=== PATIENT | female | born 1945 | race Two or more races ===

== ENCOUNTER 2025-03-07 21:44 | Inpatient (IN) | payer MEDICAID, OTHER ==
[~2025-03-07] VITALS: Ht 152.4 cm; Wt 70.2 kg
[2025-03-07] MEDS: SODIUM CHLORIDE 0.9% 500 ML IV ONE (22:15)
--- NOTE | 2025-03-07 22:19 | ED.PDOC ---
Altered Mental Status HPI Comments 79-year-old female with past medical history of liver cirrhosis (varices), diabetes, recurrent UTI brought to the hospital by EMS from home due to altered mental status. Per EMS report, patient's family reports that she has fluctuation of mental status but recently been more altered and having ulcerati on and provide false stories. Upon ER arrival, patient was alert, vitals within normal limit but the patient could not provide any history. Chief Complaint: ALOC Time Seen by MD: 21:46 Reviewed Notes: Client Representative Notes Allergies: Coded Allergies: NO KNOWN ALLERGIES (Unverified , 03/07/25) Mode of Arrival: Ambulatory Severity: Severe Timing: Days Duration: Days Past Medical History Past Medical History (Other): Diabetes Liver cirrhosis Surgical History: Denies all surgeries [employer] History: No Pertinent [employer] History Family History Family History: Reviewed,noncontributory to illness, No family hx of Cancer, No family hx of DM, No family hx of Heart patricia, No family hx of HTN, No family hx ofKidney patricia, No family hx of Liver patricia, No family hx of Lung patricia, No family hx of Stroke Social History Alcohol: Denies ETOH Use Drugs: Denies Drug Use Constitutional: reports: malaise; denies: chills, diaphoresis, fatigue, fever, sweats, weakness, others EENTM: denies: blurred vision, double vision, ear bleeding, ear discharge, ear drainage, ear pain, ear ringing, eye pain, eye redness, hearing loss, mouth pain, mouth swelling, nasal discharge, nose bleeding, nose congestion, nose pain, photophobia, tearing, throat pain, throat swelling, voice changes, others Respiratory: reports: shortness of breath; denies: cough, hemoptysis, ortho pnea, SOB at rest, SOB with excertion, stridor, wheezing, others Cardiovascular: denies: chest pain, dizzy spells, diaphoresis, Dyspnea on exertion, edema, irregular heart beat, left arm pain, lightheadedness, palpitations, PND, syncope, others Gastrointestinal: denies: abdomen distended, abdominal pain, blood streaked bowels, constipated, diarrhea, dysphagia, difficulty swallowing, hematemesis, melena, nausea, poor appetite, poor fluid intake, rectal bleeding, rectal pain, vomiting, others Neurological: denies: dizziness, fainting, headache, left sided numbness, left sided weakness, numbness, paresthesia, pre-existing deficit, right sided numbness, right sided weakness, seizure, speech problems, tingling, tremors, weakness, others Musculoskeletal: denies: back pain, gout, joint pain, joint swelling, muscle pain, muscle stiffness, neck pain, others Integumetry: denies: bruises, change in color, change in hair/nails, dryness, laceration, lesions, lumps, rash, wounds, others Allergic/Immunocompromised: denies: Difficulty Healing, Frequent Infections, Hives, Itching, others Hematologic/Lymphatic: denies: anemia, blood clots, easy bleeding, easy bruising, swollen glands, others Endocrine: denies: excessive hunger, excessive sweating, excessive thirst, excessive urination, flushing, intolerance to cold, intolerance to heat, unexplained weight gain, unexplained weight loss, others Psychiatric: denies: anxiety, bipolar disorder, depression, hopeless, panic disorder, schizophrenia, sleepless, suicidal, others Physical Exam General Appearance: Moderate Distress HEENT: Normal ENT Inspection, Pharynx Normal, TMs Normal Neck: Full Range of Motion, Non-Tender, Normal, Normal Inspection Respiratory: Chest Non-Tender, Crackles, Lungs Clear, No Accessory Muscle Use, No Respiratory Distress, Normal Breath Sounds Cardiovascular: No Edema, No JVD, No Murmur, No Gallop, Normal Peripheral Pulses, Regular Rate/Rhythm Breast Exam: Deferred Gastrointestinal: No Organomegaly, Non Tender, No Pulsatile Mass, Normal Bowel Sounds, Soft Genitalia: Deferred Pelvic: Deferred Rectal: Deferred Extremities: No calf tenderness, Normal capillary refill, Normal inspection, Normal range of motion, Non-tender, No pedal edema Neurologic: Alert, screw remover II-XII nml as Tested, No Motor Deficits, Normal Affect, Normal Mood, No Sensory Deficits Cerebellar Function: Normal Reflexes: Normal Skin: Dry, Normal Color, Warm Lymphatic: No Adenopathy EKG EKG : Comments EKGs shows normal sinus rhythm with no significant ST or T-wave changes. Was a procedure done? Was a procedure done?: No Differential Diagnosis (ALOC) Differential Diagnosis: Dehydration, Encephalopathy, Sepsis, CVA, ETOH Intoxication X-Ray, Labs, Meds, VS Vital Signs Date Time Temp Pulse Resp B/P (MAP) Pulse Ox O2 Delivery O2 Flow Rate FiO2 9/5/25 21:58 98.7 70 16 107/47 95 98.7 03/07/25 21:50 72 Lab Test 03/07/25 22:07 Range/Units White Blood Count 7.2 4.4-10.8 10^3/uL Red Blood Count 3.07 L 4.0-5.20 10^6/uL Hemoglobin 11.3 L 12.2-16.2 g/dL Hematocrit 31.5 L 36.0-46.0 % Mean Corpuscular Volume 102.4 H 80.0-100.0 fL Mean Corpuscular Hemoglobin 36.8 H 28.0-32.0 pg Mean Corpuscular Hemoglobin Concent 36.0 32.0-36.0 g/dL Red Cell Distribution Width 14.1 11.8-14.3 % Platelet Count 64 L 140-450 10^3/uL Mean Platelet Volume 10.1 6.9-10.8 fL Neutrophils (%) (Auto) 87.8 H 37.0-80.0 % Lymphocytes (%) (Auto) 6.9 L 10.0-50.0 % Monocytes (%) (Auto) 2.5 0.0-12.0 % Eosinophils (%) (Auto) 2.5 0.0-7.0 % Basophils (%) (Auto) 0.3 0.0-2.0 % Neutrophils # (Auto) 6.3 1.6-8.6 10 ^3/uL Lymphocytes # (Auto) 0.5 0.4-5.4 10 ^3/uL Monocytes # (Auto) 0.2 0-1.3 10 ^3/uL Eosinophils # (Auto) 0.2 0-0.8 10 ^3/uL Basophils # (Auto) 0 0-0.2 10 ^3/uL Nucleated Red Blood Cells 0.0 % Sodium Level 129 L 136-145 mmol/L Potassium Level 5.2 H 3.5-5.1 mmol/L Chloride Level 103 98-107 mmol/L Carbon Dioxide Level 16 L 20-31 mmol/L Anion Gap 10 5-15 Blood Urea Nitrogen 66 H 9-23 mg/dL Creatinine 2.09 H 0.550-1.02 mg/dL Glomerular Filtration Rate Calc 24 >90 mL/min BUN/Creatinine Ratio 31.6 H 10.0-20.0 Serum Glucose 250 H 74-106 mg/dL Lactic Acid Level 1.4 0.4-2.0 mmol/L Calcium Level 8.8 8.7-10.4 mg/dL Total Bilirubin 1.2 H 0.2-1.0 mg/dL Aspartate Amino Transferase (AST) 48 H 13-40 U/L Alanine Aminotransferase (ALT) 36 7-40 U/L Alkaline Phosphatase 240 H 46-116 U/L Ammonia 34 H 11-32 umol/L Total Protein 6.6 5.7-8.2 g/dL Albumin 3.1 L 3.2-4.8 g/dL Plasma/Serum Blood Alcohol < 3.0 <10 mg/dL Time of 1ST Reevaluation: 22:30 Reevaluation 1ST: Unchanged Patient Education/Counseling: Diagnosis, Treatment, Pt Unresponsive Family Education/Counseling: No Family Present Comments Patient was brought to the hospital by EMS due to altered mental status and generalized weakness. Patient blood pressure was on lower side. CBC and CMP ordered Chest x-ray shows bilateral infiltration possible pneumonia Patient was given IV fluid, IV antibiotic, thiamine and folic acid On subsequent checkup, patient was still confused and could not provide history Patient will be admitted at hospital for further management and workup. SEPSIS Sepsis Screen Date sepsis recognized/suspect: Mar 07, 2025 Time Sepsis recognized/suspect: 2143 Recent Procedure: No On Antibiotic Therapy: No Respiratory Rate >20: No Heart Rate >90: No Temp<36 C (96.8 F) or >38.3 C: No SBP <90 or MAP <65 mmHG: No New Acute Mental Status Change: No Is the patient on CPAP, BIPAP,: No Physician Orders Electrocardigram (03/07/25 21:53) Abdomen Limited (03/07/25 21:46) Urinalysis (03/07/25 21:46) Blood Culture (03/07/25 21:46) Chest Xray 1 View (03/07/25 21:46) Drug Screen (03/07/25 21:46) Head Without Contrast (03/07/25 22:05) Sodium Chloride 0.9% (03/07/25 22:15) Hernandez Catheters (03/07/25 ) Vital Signs Date Time Temp Pulse Resp B/P (MAP) Pulse Ox O2 Delivery O2 Flow Rate FiO2 03/07/25 21:58 98.7 70 16 107/47 95 98.7 03/07/25 21:50 72 Laboratory Tests Test 03/07/25 22:07 Lactic Acid Level 1.4 mmol/L (0.4-2.0) White Blood Count 7.2 10^3/uL (4.4-10.8) Departure 1 Departure Time of Disposition: 23:07 Impression: Primary Impression: Metabolic encephalopathy Additional Impression: Pneumonia Disposition: ADMITTED INPATIENT Admit to: Med Surg Condition: Serious Critical Care Note Critical Care Time?: No Stability Stability form required: No Heart Score Heart Score: Heart Score Response (Comments) Value History N/A 0 EKG Normal 0 Age >65 2 Risk Factors 1 or 2 risk factors 1 Troponin N/A 0 Total 3 NEDA VELASQUEZ Mar 07, 2025 22:19
[2025-03-07 22:29] LABS: Hematocrit 31.5 % (36.0-46.0); Hemoglobin 11.3 g/dL (12.2-16.2); Mean Corpuscular Hemoglobin 36.8 pg (28.0-32.0); Mean Corpuscular Volume 102.4 fL (80.0-100.0); Nucleated Red Blood Cells % 0.0 %
[2025-03-07] MEDS: FOLIC ACID 1 MG in D5W 5% 50 ML INJ ONE (22:30)
[2025-03-07] MEDS: THIAMINE 100mg/ml INJ (200mg/2ml VIAL) IV ONE (22:30)
[2025-03-07 22:49] LABS: Alanine Aminotransferase 36 U/L (7-40); Anion Gap 10 (5-15); BUN/Creatinine Ratio 31.6 (10.0-20.0); Calcium 8.8 mg/dL (8.7-10.4); Chloride 103 mmol/L (98-107); Total Protein 6.6 g/dL (5.7-8.2)
[2025-03-07 22:53] LABS: Albumin 3.1 g/dL (3.2-4.8); Alkaline Phosphatase 240 U/L (46-116); Bilirubin, Total 1.2 mg/dL (0.2-1.0); Blood Urea Nitrogen 66 mg/dL (9-23); Carbon Dioxide 16 mmol/L (20-31); Glucose 250 mg/dL (74-106); Potassium 5.2 mmol/L (3.5-5.1); Sodium 129 mmol/L (136-145)
[2025-03-07] MEDS: AZITHROMYCIN 500MG/ 250ML 250 ML IV ONE (23:15)
--- NOTE | 2025-03-07 23:28 | DVH ---
EXAM: CT HEAD WITHOUT CONTRAST INDICATION: aloc TECHNIQUE: CT of the head without intravenous contrast. Radiation Dose : 1. Head: CT Dose: CTDI volume is 53.95 mGy. Dose-length product is 1.71 mGy*cm The dose indicators for CT are the volume Computed Tomography (CT) Dose Index (CTDIvol) and the Dose Length Product (DLP), and are measured in units of mGy and mGy-cm, respectively. These indicators are not patient dose, but values generated from the CT scanner acquisition factors. The report includes radiation exposure data for exposures received during this examination. COMPARISON: CT HEAD WITHOUT CONTRAST on DOS: 02/28/25, CT HEAD WITHOUT CONTRAST on DOS: 01/14/25, US CA ROTID DUPLX W COLOR DOP on DOS: 07/24/24 FINDINGS: There is no evidence of acute intracranial hemorrhage, extra-axial collection, mass effect, midline s hift, herniation or hydrocephalus. 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 Focal calcification in the right precentral gyrus ( series 2, image 48 ) and l eft temporal lobe (series 2, image 22). Intracranial atherosclerosis. The ventricles, sulci and cisterns are age appropriate. The oneal-white differentiation is intact. The visualized paranasal sinuses are clear. Prior right canal wall down mastoidectomy. The surrounding soft tissues and osseous structures are unremarkable. IMPRESSION: 1. No acute intracranial abnormality. Radiation optimization: All CT scans at this facility use at least one of these dose optimization rosemary hniques: automated exposure control mA and/or kV adjustment per patient size (includes targeted exam s where dose is matched to clinical indication) or iterative reconstruction.
--- NOTE | 2025-03-07 23:32 | DVH ---
CHEST RADIOGRAPH Indication: Pneumonia Technique: Single frontal view of the chest was obtained COMPARISON: XY CHEST PORTABLE on DOS: 02/28/25, XY CHEST PORTABLE on DOS: 01/14/25, XY CHEST XRAY 1 VIE W on DOS: 09/27/24 FINDINGS: Lines and Tubes: None Lungs: Diffuse lung disease with patchy alveolar and interstitial opacities in both lungs, predominan tly in the left mid lung and left lower lobe, suggestive of atypical or viral pneumonia. Pleura: No effusion. No pneumothorax. Cardiomediastinal contours: Enlarged cardiac silhouette. Bones: Unremarkable IMPRESSION: 1. Diffuse lung disease with patchy alveolar and interstitial opacities in both lungs, predominantly in the left mid lung and left lower lobe, suggestive of atypical or viral pneumonia.
--- NOTE | 2025-03-08 00:28 | DVH ---
INDICATION: Liver cirrhosis, asictis TECHNIQUE: Multiple real-time sonographic images were obtained of the right upper quadrant. COMPARISON: US LIVER on DOS: 09/28/24 FINDINGS: The liver demonstrates coarsened diffusely increased echotexture without focal mass lesions . The liver measures 10.9 cm. Normal hepatopetal portal flow identified. No evidence of pleural effu gerardo or abdominal ascites. There is no intrahepatic or extrahepatic ductal dilatation. The common duct measures 0.4 cm. Gallstones within the gallbladder. The gallbladder wall measures 0.2 cm and is within normal limits. Negative sonographic davey's sign. The right kidney measures 7.5 cm. The right kidney is normal in contour, size, and shape. The echogen icity is normal. There is no hydronephrosis. The pancreas is not well visualized due to overlying bowel gas. IMPRESSION: 1. Coarsened hepatic echotexture. 2. No evidence of ascites. 3. Cholelithiasis without sonographic evidence of acute cholecystitis.
[2025-03-08 02:28] VITALS: PULSE 68; RESP 20; O2SAT 97
[2025-03-08] MEDS ORDERED: DEXTROSE (50%) 50ML SYRG IV PRN (03:15)
[2025-03-08 03:21] LABS: Urine Budding Yeast OCCASIONAL /hpf (None Seen); Urine Protein, UAD Negative (Negative)
[2025-03-08] MEDS ORDERED: NITROGLYCERIN 0.4 MG SL TAB SL PRN (03:30)
[2025-03-08] MEDS ORDERED: FOLIC ACID 1 MG in D5W 5% 50 ML INJ ONE (03:30)
[2025-03-08] MEDS ORDERED: DOCUSATE SOD 100 MG CAP PO PRN (03:30)
[2025-03-08] MEDS ORDERED: MORPHINE SULFATE INJ 2 MG/ml SYRG IV PRN (03:30)
[2025-03-08 03:59] LABS: Amphetamine Screen, Urine Neg (NEGATIVE); Barbiturate Scree,Urine Neg (NEGATIVE); Benzodiazephine Screen, Urine Neg (NEGATIVE); Cannabinoid Screen, Urine Neg (NEGATIVE); Cocaine Screen, Urine Neg (NEGATIVE); Opiate Scree,Urine Neg (NEGATIVE); Phencyclidine Screen, Urine Neg (NEGATIVE)
[2025-03-08 04:42] LABS: Hematocrit 31.1 % (36.0-46.0); Hemoglobin 11.1 g/dL (12.2-16.2); Mean Corpuscular Hemoglobin 37.2 pg (28.0-32.0); Mean Corpuscular Volume 104.0 fL (80.0-100.0); Nucleated Red Blood Cells % 0.0 %
[2025-03-08 04:54] LABS: Alanine Aminotransferase 36 U/L (7-40); Anion Gap 11 (5-15); BUN/Creatinine Ratio 33.7 (10.0-20.0); Calcium 8.8 mg/dL (8.7-10.4); Chloride 103 mmol/L (98-107); Total Protein 6.2 g/dL (5.7-8.2)
[2025-03-08 04:55] LABS: Bilirubin, Total 0.9 mg/dL (0.2-1.0)
[2025-03-08 05:06] LABS: Albumin 3.0 g/dL (3.2-4.8); Alkaline Phosphatase 246 U/L (46-116); Blood Urea Nitrogen 57 mg/dL (9-23); Carbon Dioxide 15 mmol/L (20-31); Glucose 247 mg/dL (74-106); Potassium 5.2 mmol/L (3.5-5.1); Sodium 129 mmol/L (136-145)
[2025-03-08] MEDS: LACTATED RINGER'S 500 ML IV ONE (05:25)
[2025-03-08] MEDS: METHOTREXATE 2.5 MG TAB PO SCH (05:40)
[2025-03-08] MEDS: PANTOPRAZOLE 40 MG/10 ML VIAL INJ IV SCH (05:45)
[2025-03-08] MEDS: LACTATED RINGER'S 1,000 ML IV ONE (05:45)
[2025-03-08] MEDS: ALBUMIN 25% 100 ML IV ONE (06:22)
[2025-03-08 06:26] LABS: COVID19 ANTIGEN SOFIA FIA NEGATIVE (NEGATIVE)
[2025-03-08] MEDS ORDERED: VANCOMYCIN PER PHARMACY 0 MG IV SCH (06:30)
[2025-03-08] MEDS: ACCU-CHEK COMFORT CURVE STRIP VI SCH (06:59)
--- NOTE | 2025-03-08 06:59 | DVHHPRES ---
History of Present Illness Resident Creating Document: KIKO YIN RESIDENT History of Present Illness Claudette Guzmán is an 79-year-old woman with a complex medical history that includes type 2 diabetes mellitus, thyroid disease, liver cirrhosis with varices, gastritis, lung fibrosis, high blood pressure, rheumatoid arthritis, and heart failure with reduced ejection fraction. She was living independently and managing her own care at home until recently. About two weeks ago, she was hospitalized for hyperammonemia, likely related to her liver disease. Since being discharged, her family noticed that her mental status had been fluctuatingshe was sometimes lucid but increasingly confused. Over the past few days, her condition worsened. Just one day before arriving at the ER, she began saying random things, became visibly confused, and started having visual hallucinations. Her movements also became noticeably slower. Concerned, her family called EMS, and she was brought to the emergency department. On arrival, she was alert but unable to give a clear history. Her vital signs were stable, and she denied having any fever, chills, nausea, vomiting, diarrhea, chest pain, or shortness of breath. Patient is altered and collateral history taken from granddaughter over phone. Past Medical History: type 2 diabetes mellitus, thyroid disease, liver cirrhosis with varices, gastritis, lung fibrosis, high blood pressure, rheumatoid arthritis, and heart failure with reduced ejection fraction. Surgical History: Denies all surgeries PIN PULLER History: No Pertinent PIN PULLER History Family History: Reviewed,noncontributory to illness, No family hx of Cancer, No family hx of DM, No family hx of Heart patricia, No family hx of HTN, No family hx ofKidney patricia, No family hx of Liver patricia, No family hx of Lung patricia, No family hx of Stroke Social History: The patient/ family denies alcohol use and denies any illicit drug use. Home Medications: Xifaxan 550 mg tab, Furosemide 40 mg tab, Potassium Cl ER 10 mEq tablet, Cephalexin 500 mg cap, Azithromycin 250 mg tab, COORDX Tyfast COVID- 19 Ag Test, Propranolol Hydrochloride 10 mg tab, Enulose 10 gm/15 mL john, Verquvo 2.5 mg tab, Tradjenta 5 mg tablets, Folic Acid 1 mg tab, Methotrexate 2.5 mg tablet, Naproxen DR 375 mg tab, Potassium Cl 10 mEq ER tablets, Tramadol HCl 50 mg tab, Pregabalin 150 mg cap, Nitrofurantoin Monohydrate 100 mg cap, Clonidine HCl 0.1 mg/24 hr patch, Ciprofloxacin HCl 500 mg tab, Pantoprazole Sodium 40 mg tab, Timolol Maleate 0.5% john, Spironolactone 50 mg tab, Albuterol Sulfate HFA 108 mcg/act inhaler, Timolol Maleate 0.5% eye drops, Diclofenac Sodium 1% gel, Lidocaine 5% patch, Pregabalin 75 mg cap. PCP/Sleeve Setter: Dr. Weaver Review of Systems Review of Systems CONSTITUTIONAL: Fever, night sweats, weight loss, Lymphadenopathy, ecchymoses, fatigue: Negative DERMATOLOGIC: Rash, New/growing/changing skin lesions: Negative HEENT: Vision change, eye pain, Rhinorrhea, sinus pain, epistaxis, dysphagia, odynophagia, globus sensation, Change in hearing, tinnitus, vertigo, otalgia, Dental problems, oral ulcers or lesions: : Negative ENDOCRINE: Weight change, heat or cold intolerance, tremor, insomnia, neck pain or swelling, Polyuria, polydipsia, polyphagia, Abnormal hair growth, change in nails: Negative CARDIOVASCULAR: Chest pain, palpitations, syncope, Edema, cyanosis, claudication, Orthopnea, paroxysmal nocturnal dyspnea: Negative PULMONARY: Shortness of breath, dyspnea with exertion, Cough, hemoptysis, wheezing, chest pain : Negative GI: Nausea, vomiting, diarrhea, melena, hematochezia, Change in appetite, abdominal pain, change in bowel habits or stools: Negative : Dysuria, frequency, urgency, Urinary incontinence, hematuria, foamy urine, nocturia, Change in libido, erectile dysfunction, Change in menses, dysmenorrhea, dyspaerunia, pelvic pain: : Negative MUSCULOSKELETAL: Joint swelling or pain, muscle pain, back pain: : Negative NEUROLOGIC: Headache, scotoma, Change in smell or taste, change in facial muscles, Muscle weakness, paresthesias, anesthesia, Ataxia, change in speech: Negative PSYCHIATRIC: Depression, anxiety, hallucinations, talon, suicidal/homicidal thoughts, Binging, purging: Negative Patient is not alert or oriented to perform a Review of the Systems Allergies: Coded Allergies: NO KNOWN ALLERGIES (Unverified , 03/07/25) Medications Current Medications Medications Dose Ordered Sig/Vickie Route Start Time Stop Time Status Last Admin Dose Admin Diagnostic Test (Pha) 1 strip Q6HR 03/08/25 06:00 Insulin Human Regular Q6HR SC 03/08/25 06:00 Dextrose 50 ml UD PRN IV 03/08/25 03:15 Docusate Sodium 100 mg BIDPRN PRN PO 03/08/25 03:30 Nitroglycerin 0.4 mg Q5MINP PRN SL 03/08/25 03:30 Morphine Sulfate 2 mg Q30M PRN IV 03/08/25 03:30 Exam Vital Signs Vital Signs Date Time Temp Pulse Resp B/P (MAP) Pulse Ox O2 Delivery O2 Flow Rate FiO2 03/08/25 02:28 98.1 70 20 95/45 (62) 97 98.1 03/08/25 02:28 Room Air* 0 21 Exam General Appearance: Alert, Oriented X3, Cooperative, No acute distress HEENT: Atraumatic, PERRLA, EOMI, Mucous membrane moist/pink Respiratory: Crackles present Cardiovascular: Regular rate, Normal S1, Normal S2, No murmurs, no chest wall tenderness Abdominal: Normal bowel sounds, Soft, No tenderness, No hepatospenomegaly, No masses Extremities: No clubbing, No cyanosis, No edema, Normal pulses, No tenderness/swelling Skin: No rashes, No breakdown, No significant lesion Neuro: Normal gait, Normal speech, Strength at 5/5 X4 ext, Normal tone, Sensation intact, Cranial nerves 3-12 NL, Reflexes 2+ Psych/Mental Status: Mental status NL, Mood NL Labs/Xrays Labs Test 03/07/25 23:59 03/07/25 22:07 Range/Units Urine Color Light-yellow Yellow Urine Clarity Clear Clear Urine pH 5.5 5.0-9.0 Urine Specific Scott 1.010 1.001-1.035 Urine Protein Negative Negative Urine Ketones Negative Negative Urine Blood Negative Negative /uL Urine Nitrite Negative Negative Urine Bilirubin Negative Negative Urine Urobilinogen Normal Negative mg/dL Urine Leukocyte Esterase 2+ Negative /uL Urine RBC 1 0 - 4 /hpf Urine Microscopic WBC 5 0-5 /HPF Urine Squamous Epithelial Cells Few <5 /hpf Urine Bacteria None seen None Seen /hpf Urine Yeast (Budding) Occasional None Seen /hpf Urine Glucose Normal Normal mg/dL White Blood Count 7.2 4.4-10.8 10^3/uL Red Blood Count 3.07 L 4.0-5.20 10^6/uL Hemoglobin 11.3 L 12.2-16.2 g/dL Hematocrit 31.5 L 36.0-46.0 % Mean Corpuscular Volume 102.4 H 80.0-100.0 fL Mean Corpuscular Hemoglobin 36.8 H 28.0-32.0 pg Mean Corpuscular Hemoglobin Concent 36.0 32.0-36.0 g/dL Red Cell Distribution Width 14.1 11.8-14.3 % Platelet Count 64 L 140-450 10^3/uL Mean Platelet Volume 10.1 6.9-10.8 fL Neutrophils (%) (Auto) 87.8 H 37.0-80.0 % Lymphocytes (%) (Auto) 6.9 L 10.0-50.0 % Monocytes (%) (Auto) 2.5 0.0-12.0 % Eosinophils (%) (Auto) 2.5 0.0-7.0 % Basophils (%) (Auto) 0.3 0.0-2.0 % Neutrophils # (Auto) 6.3 1.6-8.6 10 ^3/uL Lymphocytes # (Auto) 0.5 0.4-5.4 10 ^3/uL Monocytes # (Auto) 0.2 0-1.3 10 ^3/uL Eosinophils # (Auto) 0.2 0-0.8 10 ^3/uL Basophils # (Auto) 0 0-0.2 10 ^3/uL Nucleated Red Blood Cells 0.0 % Sodium Level 129 L 136-145 mmol/L Potassium Level 5.2 H 3.5-5.1 mmol/L Chloride Level 103 98-107 mmol/L Carbon Dioxide Level 16 L 20-31 mmol/L Anion Gap 10 5-15 Blood Urea Nitrogen 66 H 9-23 mg/dL Creatinine 2.09 H 0.550-1.02 mg/dL Glomerular Filtration Rate Calc 24 >90 mL/min BUN/Creatinine Ratio 31.6 H 10.0-20.0 Serum Glucose 250 H 74-106 mg/dL Lactic Acid Level 1.4 0.4-2.0 mmol/L Calcium Level 8.8 8.7-10.4 mg/dL Total Bilirubin 1.2 H 0.2-1.0 mg/dL Aspartate Amino Transferase (AST) 48 H 13-40 U/L Alanine Aminotransferase (ALT) 36 7-40 U/L Alkaline Phosphatase 240 H 46-116 U/L Ammonia 34 H 11-32 umol/L Total Protein 6.6 5.7-8.2 g/dL Albumin 3.1 L 3.2-4.8 g/dL Plasma/Serum Blood Alcohol < 3.0 <10 mg/dL SEPSIS Sepsis Screen Date sepsis recognized/suspect: Mar 08, 2025 Time Sepsis recognized/suspect: 229 Recent Procedure: No On Antibiotic Therapy: No Respiratory Rate >20: No Heart Rate >90: No Temp<36 C (96.8 F) or >38.3 C: No SBP <90 or MAP <65 mmHG: No New Acute Mental Status Change: No Is the patient on CPAP, BIPAP,: No Physician Orders Electrocardigram (03/07/25 21:53) Abdomen Limited (03/07/25 21:46) Blood Culture (03/07/25 21:46) Chest Xray 1 View (03/07/25 21:46) Drug Screen (03/07/25 21:46) Head Without Contrast (03/07/25 22:05) Hernandez Catheters (03/07/25 ) Glucose Blood (Accu-Chek Comfort Curve T (03/08/25 06:00) Dextrose 50% Syringe (03/08/25 03:15) Npo (Nothing By Mouth) Diet (03/08/25 Breakfast) Insulin R (Human) (Insulin R) (03/08/25 06:00) Admit (03/08/25 03:26) Allergies (03/08/25 03:26) Code Status (03/08/25 03:26) Docusate Sodium Capsule (Colace Capsule) (03/08/25 03:30) Complete Blood Count (03/08/25 04:00) Comprehensive Metabolic Panel (03/08/25 04:00) Condition: Serious (03/08/25 03:26) Nitroglycerin Sublingual (Ntrostat Subli (03/08/25 03:30) Morphine Sulfate Injection (03/08/25 03:30) Stat Ekg For Chest Pain (03/08/25 03:26) Respiratory Culture W/ Gs (03/08/25 03:33) Blood Culture (03/08/25 03:33) Folic Acid (03/08/25 08:00) Vital Signs Date Time Temp Pulse Resp B/P (MAP) Pulse Ox O2 Delivery O2 Flow Rate FiO2 03/08/25 02:28 98.1 70 20 95/45 (62) 97 98.1 03/08/25 02:28 68 20 97 Room Air* 0 21 03/07/25 21:58 98.7 70 16 107/47 95 98.7 03/07/25 21:50 72 Laboratory Tests Test 03/07/25 22:07 Lactic Acid Level 1.4 mmol/L (0.4-2.0) White Blood Count 7.2 10^3/uL (4.4-10.8) Medications Medications Dose Ordered Sig/Vickie Route Start Time Stop Time Status Last Admin Dose Admin Azithromycin 250 ml @ 125 mls/hr ONCE ONCE IV 03/07/25 23:15 03/08/25 01:14 DC 03/07/25 23:15 125 MLS/HR Ceftriaxone Sodium 50 ml @ 100 mls/hr ONCE ONCE IV 03/07/25 22:15 03/07/25 22:44 DC 03/07/25 22:15 100 MLS/HR Sodium Chloride 500 ml @ 500 mls/hr Q1H ONCE IV 03/07/25 22:15 03/07/25 23:14 DC 03/07/25 22:15 500 MLS/HR Thiamine HCl 100 mg ONCE ONCE IV 03/07/25 22:30 03/07/25 22:31 DC 03/07/25 22:30 100 MG Assessment/Plan Assessment/Plan #Likely HFREF: Limited history, due to language barrier, no available prior medical records, noted VERQUVO, TRADJENTA, SPIRONOLACTONE 50, limited room for GDMT seems like end-stage heart failure, NYHA class 4, repeat echo telemetry, discussed closely with family, Dr. Weaver for goals of care if poor life expectancy. Consulted Dr. Weaver. #Possible community acquired Pneumonia: Gram-positive/ Gram-negative, ruled out viral disease: Influenza COVID -v e Target SpO2 more than 94%. Toxicology negative. MRSA to check, broad antibiotics with sputum culture and blood culture pending. #anemia with Macrocytosis: folate and b12 check follow up CBC rule, TSH , close follow up, Could be due to secondary to methotrexate, transfusion threshold 7. Hold methotrexate #hyponatremia, hypovolemic, likely chronic: Close follow up, 129. urine , close follow up avoid rapid correction of more than 8 mEq per 24 hours. #Hyperkalemia, moderate, persistent: Hyperkalemia protocol to continue, hold spironolactone. Check for magnesium, keep magnesium above 2, telemetry to continue Hyperkalemia protocol to continue. #JOE due to VMN: Likely hepatorenal pathology. Workup in progress, check for prerenal, renal, post sternal causes. #likely underlying CKD #Intravascular dehydration, likely due to 3rd spacing: likely prerenal. BUN is to creatinine ratio 31.6. Severe intravascular fluid depletion: Hold Lasix, intravascularly dry, careful fluid depletion. With albumin #High concern for GI bleed: PPI bid, BUN high , stool occult blood. transfusion threshold 7 if no active bleeding noted. #Mild transaminitis: check for PT INR, comprehensive hepatic panel to check. Hepatic cirrhosis versus cryptogenic cirrhosis. Discussion with family do not reveal any potential cause so far. #Hyperammonemia: lactulose, oral continue. Continue oral rifaximin. #Cirrhotic liver disease: Decompensated, noted evident cirrhosis, possible cardiac cirrhosis, workup in progress, BNP elevated 1800, low room for GDM T, due to low blood pressure hemodynamic instability, echo, keep the patient on telemetry, correct electrolytes. previously was seen by GI, CT abdomen pelvis pending, check for lipase. #moderate to severe protein energy malnutrition: continue IV albumin to stop from 3rd spacing. Went tolerate patient needs to be switched on oral high- protein diet. #acute complicated UTI: Likely Gram-negative, blood culture, urine culture to continue. Patient came from home, low possibility of ESBL. #Acute encephalopathy likely due to Toxic versus metabolic causes: CT head negative, no focal neurological deficits. Could be multifactorial hyperammonemia, hyperuricemia, sepsis, hypoxia, multisystem disease, delirium precaution, high-risk of aspiration, NPO, fall precautions. #Pulmonary edema, with possible trace bilateral pleural effusion: close follow up, primary disease control, ruled out infection inflammation. Close follow up no need of aspiration at this point. #Abdominal distention concerning for SBP/decompensated liver cirrhosis: Limited examination, no acute tenderness, check with CT abdomen with pelvis without contrast at this point: INR, PT PTT. To check for possible paracentesis. #Cholelithiasis without sonographic evidence of acute cholecystitis : Close monitoring of LFT daily basis, Avoid hepatotoxic, poor prognosis, multisystem disease, GI consult. #Known COPD: continue nebs, no active wheezing noted. On room air, try to keep SpO2 above 92%. #Neuropathic pain: Home medications On pregabalin 75, lidocaine 5% previously, denies any low back pain as needed medications. #Glaucoma: On timolol maleate eyedrops, no visual disturbance or redness noted on examination for now. #known varices: Look for variceal GI with, avoid aspirin, NSAIDs, anticoagulants. #History of recurrent UTI presented with acute complicated cystitis: Upgrade to meropenem urine culture, blood culture to continue. #advanced age with multiorgan failure secondary due to sepsis and septic shock vs cardiogenic shock: On telemetry continue, patient's family updated and understands the poor outcome arranging to come at bedside in-hospital, repeat lactic acidosis, telemetry close monitoring, if hypotension and hemodynamic instability continues consider upgrade to ICU status. For now patient remains full code. # Diet: NPO, high aspiration risk # DVT prophylaxis: SCDs only high-risk of bleeding # GI Prophylaxis: IV PPI b.i.d. PCP: Dr. Weaver Sleeve Setter: Dr. Weaver Barriers to discharge: Extremely poor prognosis, multiorgan failure, advanced age, active treatment and management ongoing. Might need close monitoring/upgraded treatment and ICU level. Likely need goals of care discussion soon. Case discussed with Dr. Krueger. Code status: Full code. Complex patient care discussion needed total 37 minutes. Plan discussed with: Patient, Other (Granddaughter ) My Orders Orders - KIKO YIN RESIDENT Procedure Category Date Status Time Admit ADMIT 03/08/25 Transmitted 03:26 Allergies RUDY 03/08/25 In Process 03:26 Code Status CODE 03/08/25 Transmitted 03:26 Docusate Sodium PHA 03/08/25 In Process Capsule (Colace 03:30 Complete Blood Count LAB 03/08/25 Logged 04:00 Comprehensive LAB 03/08/25 Logged Metabolic Panel 04:00 Condition: Serious RUDY 03/08/25 In Process 03:26 Nitroglycerin PHA 03/08/25 In Process Sublingual (Ntrostat 03:30 Morphine Sulfate PHA 03/08/25 In Process Injection 03:30 Stat Ekg For Chest RUDY 03/08/25 In Process Pain 03:26 Respiratory Culture CHRISTIANO 03/08/25 Logged W/ Gs 03:33 Blood Culture CHRISTIANO 03/08/25 Logged 03:33 Date of Service: Mar 08, 2025 Billing Provider: YONG KRUEGER MD Common Visit Codes: [id number] INP/OBS CARE (HIGH) Secondary Visit Codes: [id number] CARE PLAN 30 MINUTES KIKO YIN RESIDENT Mar 08, 2025 03:42 OTIS SHIRLEY RESIDENT Mar 08, 2025 06:59
[2025-03-08] MEDS: InsuLIN REG 1unit/0.01ml Soln (100units/ml) SC SCH (07:01)
[2025-03-08 07:24] LABS: INR 1.11 (0.9-1.15); Prothrombin Time 11.6 sec (9.3-11.8)
[2025-03-08 07:30] VITALS: PULSE 105; RESP 20; O2SAT 95
[2025-03-08] MEDS ORDERED: PANTOPRAZOLE 40 MG/10 ML VIAL INJ IV SCH (07:30)
[2025-03-08] MEDS: NOREPINEPHRINE 8 MG/250ML KIT 250 ML IV SCH (08:22)
--- NOTE | 2025-03-08 08:25 | DVH ---
US KIDNEY HISTORY: rule out postrenal obstruction COMPARISON: US ABDOMEN LIMITED on DOS: 03/07/25, US LIVER on DOS: 09/28/24 TECHNIQUE: Transverse and longitudinal grayscale and color doppler images were obtained of the kidney s and bladder. FINDINGS: Right kidney: Size: 9.9 cm Cortical thickness: Normal Echogenicity: Normal Stones: None Masses: None Hydronephrosis: None Ureters: Not well visualized. Other: None Left kidney: Size: 10.8 cm Cortical thickness: Normal Echogenicity: Normal Stones: None Masses: None Hydronephrosis: None Ureters: Not well visualized. Other: None Bladder: Hernandez Other: None. IMPRESSION: Unremarkable renal ultrasound.
[2025-03-08] MEDS: NOREPINEPHRINE 8 MG/250ML KIT 250 ML IV ONE (08:30)
[2025-03-08 09:03] LABS: Base Excess -7.1 mmol/L (-2.0-3.0)
[2025-03-08] MEDS: SODIUM BICARB 8.4% 50Meq/50ml SYR INJ IV ONE (09:36)
[2025-03-08] MEDS: LACTULOSE 20Gm/30ML SOLN PO ONE (09:36)
[2025-03-08] MEDS: metroNIDAZOLE 500 MG TAB PO ONE (09:36)
[2025-03-08] MEDS ORDERED: FUROSEMIDE 20 MG TAB PO SCH (10:00)
[2025-03-08] MEDS ORDERED: SPIRONOLACTONE 25 MG TAB PO SCH (10:00)
[2025-03-08] MEDS: CALCIUM GLUC 1,000mg/50ml-NS 50 ML IV ONE (11:04)
[2025-03-08] MEDS: MEROPENEM 500MG IVPB 50 ML IV ONE (11:36)
[2025-03-08] MEDS: DEXTROSE (50%) 50ML SYRG IV ONE (11:40)
[2025-03-08] MEDS: InsuLIN REG 1unit/0.01ml Soln (100units/ml) IV ONE (11:41)
[2025-03-08] MEDS: SODIUM ZIRCONIUM CYCL 10 GM PAK PO ONE (11:41)
[2025-03-08] MEDS: FOLIC ACID 1 MG in D5W 5% 50 ML INJ ONE ×2 (11:42→14:21)
[2025-03-08] MEDS: VANCOMYCIN 1GM/250ML KIT 250 ML IV ONE (12:33)
[2025-03-08] MEDS: PREGABALIN 25 MG CAP PO SCH (12:47)
[2025-03-08] MEDS: FOLIC ACID 1 MG TAB PO SCH (12:47)
[2025-03-08] MEDS: metroNIDAZOLE 500 MG TAB PO SCH (14:00)
[2025-03-08] MEDS: SODIUM ZIRCONIUM CYCL 10 GM PAK PO SCH (14:00)
[2025-03-08 16:49] LABS: Protein, Urine 19.6 mg/dL (1-14)
[2025-03-08 17:55] LABS: Urine Protein, UAD Negative (Negative)
--- NOTE | 2025-03-08 19:07 | DVHPNRES ---
Progress Note Date Seen: Mar 08, 2025 Resident Creating Document: BERNARDO GOODE RESIDENT Medical Necessity Reason Pt with a Central, PICC or Fol: No Subjective Review of Systems Claudette Guzmán is an 79-year-old woman who presents to the ED via EMS with chief complaint of altered level of consciousness, low grade fever, fatigue and generalized weakness, associated with suprapubic pain. Due to clinical status could not obtain review of systems, obtained past medical history from family who is at bedside. Per daughter she was recently hospitalized due to hyperammonemia in the setting of liver cirrhosis (etiology probably medication) in recently discharged eight days ago. Past Medical History: Hypertension, type 2 diabetes mellitus, HFrEF, liver cirrhosis (etiology probably secondary to medication) with esophageal varices and multiple admissions due to hyperammonemia, gastritis, lung fibrosis, rheumatoid arthritis. Surgical History: EGD with diagnosis of esophageal varices, nose and ear surgery, cataract surgery Family History: Sister had breast cancer Social History: Lives in [place] with daughter (she is the caregiver). Denies current tobacco, alcohol and other drug abuse Home Medications: Xifaxan 550 mg tab, Furosemide 40 mg tab, Potassium Cl ER 10 mEq tablet, Propranolol Hydrochloride 10 mg tab, Enulose 10 gm/15 mL john, Verquvo 2.5 mg tab, Tradjenta 5 mg tablets, Folic Acid 1 mg tab, Methotrexate 2.5 mg tablet, Naproxen DR 375 mg tab, Tramadol HCl 50 mg tab, Pregabalin 150 mg cap, Clonidine HCl 0.1 mg/24 hr patch, Pantoprazole Sodium 40 mg tab, Spironolactone 50 mg tab, Albuterol Sulfate HFA 108 mcg/act inhaler, Timolol Maleate 0.5% eye drops, Diclofenac Sodium 1% gel, Lidocaine 5% patch. PCP: Dr Siddiqi Patent Counsel: Dr. Weaver Loom Doffer: Dr Thomson Patient seen and examined at bedside. Patient is still only oriented in person (not in time and place) presents mild abdominal pain especially on palpation. No other symptom. Objective vital signs Vital Sign Date Time Temp Pulse Resp B/P (MAP) Pulse Ox O2 Delivery O2 Flow Rate FiO2 03/08/25 08:30 76 18 80/26 (44) 95 03/08/25 07:30 98.6 98.6 03/08/25 07:30 Room Air* 0 21 medications Current Medications Medications Dose Ordered Sig/Vickie Route Start Time Stop Time Status Last Admin Dose Admin Diagnostic Test (Pha) 1 strip Q6HR 03/08/25 06:00 03/08/25 13:41 1 STRIP Insulin Human Regular Q6HR SC 03/08/25 06:00 03/08/25 13:40 4 UNITS Dextrose 50 ml UD PRN IV 03/08/25 03:15 Docusate Sodium 100 mg BIDPRN PRN PO 03/08/25 03:30 Rifaximin 550 mg BID PO 03/08/25 10:00 03/08/25 12:47 550 MG Folic Acid 1 mg DAILY PO 03/08/25 10:00 03/08/25 12:47 1 MG Pregabalin 50 mg DAILY PO 03/08/25 10:00 03/08/25 12:47 50 MG Pantoprazole Sodium 40 mg BID IV 03/08/25 05:45 03/08/25 12:46 40 MG Folic Acid 1 mg/ Dextrose 50.2 ml @ 200.8 mls/ hr DAILY INJ 03/09/25 10:00 Zirconium Oxide 10 gm TID PO 03/08/25 14:00 03/10/25 06:01 Lactulose 15 ml DAILY PO 03/09/25 10:00 Vancomycin HCl 0 ml @ 0 mls/hr UD IV 03/08/25 06:30 Meropenem 50 ml @ 17 mls/hr Q12HR IV 03/08/25 22:00 Metronidazole 500 mg Q8HR PO 03/08/25 14:00 Norepinephrine Bitartrate 250 ml @ 3.75 mls/hr Q24H IV 03/08/25 07:30 03/08/25 08:22 3.75 MLS/HR Examination Patient lying in bed, in no acute distress General: [place], afebrile, mucosae are moist Cardiovascular: Normal S1 and S2. No murmurs, gallops or rubs Respiratory: Normal ventilation mechanics. Clear lung sounds on auscultation Abdomen: Soft, nontender, no organomegaly, normal bowel sounds MSK/skin: Mobilizes 4 limbs. Skin is dry and warm. Chronic metacarpal- phalangeal and PIP deformities of RA Neurological: Oriented in 1 sphere (only person). No motor no sensitive deficits. Pupils are isocoric and reactive laboratory and microbiology Laboratory Tests 03/08/25 08:08 03/08/25 03:40 Test 03/08/25 03:40 Range/Units Serum Glucose 247 H 74-106 mg/dL Microbiology Date/Time Source Procedure Growth Status 03/08/25 05:15 Nose MRSA Screen - Final Complete Problem List/Assessment/Plan Problem List/Assessment/Plan Metabolic encephalopathy secondary to sepsis probably due to UTI Ruled out hepatic encephalopathy Completed head CT which showed no acute intracranial pathology Ordered ammonia level which was mildly elevated (34-16). 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 Currently discontinue methotrexate during admission. She will be re-evaluated as outpatient Continue rifaximin and lactulose On pantoprazole Completed abdominal ultrasound which evidenced cholelithiasis, no ascites JOE hemodynamically mediated (VMN) Hyperkalemia Hypovolemic Hyponatremia Currently on IV fluids We will monitor creatinine Patient require hyperkalemia treatment On IV fluids (normal saline) Pulmonary fibrosis - no home oxygen requirement Unlikely pneumonia Patient has rheumatoid arthritis treated with methotrexate. Could be probable cause of pulmonary fibrosis Completed chest x-ray which shows questionable atypical pneumonia. Patient has history of pulmonary fibrosis. Indicated empiric IV antibiotic) meropenem, metronidazole in azithromycin). Unlikely to have pneumonia since patient is not desaturating room air. But due to pulmonary fibrosis, we will cover atypical bacteria. Chronic systolic congestive heart failure (HFrEF) - no exacerbation No signs of fluid overload at the moment. Had to discontinue most GDM T due to septic shock. Re-initiate once per patient stabilized Macrocytic anemia Thrombocytopenia probably secondary to liver cirrhosis Probably secondary to methotrexate Rheumatoid arthritis Currently discontinued methotrexate Suggest following up as outpatient. Hypertension Diabetes Currently discontinued antihypertensive medication due to septic shock On insulin sliding scale Gave her advice on healthy lifestyle habits Glaucoma Continue eyedrops (timolol) Goals of care discussed with patient and family (granddaughter who is the power supervisor word processing and caregiver) for over 18 minutes: Full code status Discussed plan with Dr. Vines, patient and nurses: Patient currently ICU status due to IV vasopressors, under empiric IV antibiotic, and IV fluid resuscitation (limited due to history of HFrEF). Discontinue methotrexate, contraindicated in liver cirrhosis and with active infection. Patient has poor prognosis. Critical care time spent including chart review, discussion with family and patient evaluation, excluding procedures: 76 minutes Plan discussed with: Patient, Daughter, Other (Nurses) My Orders My Orders Orders - BERNARDO GOODE RESIDENT Procedure Category Date Status Time Abg W/ Co-Ox RT 03/08/25 Logged 08:15 Date of Service: Mar 08, 2025 Billing Provider: YAJAIRA VINES MD Common Visit Codes: [id number] CARE 30-74 MIN (critical care time 45 minutes) BERNARDO GOODE Mar 08, 2025 19:07 YAJAIRA VINES MD Mar 14, 2025 21:50
[2025-03-08] MEDS: SODIUM CHLORIDE 0.9% 1,000 ML IV SCH (21:08)
[2025-03-08] MEDS ORDERED: AZITHROMYCIN 500MG/ 250ML 250 ML IV SCH (23:00)
[2025-03-08] MEDS: MEROPENEM 1GM IVPB 50 ML IV SCH (23:17)
[2025-03-08] MEDS: ONDANSETRON HCL 4 MG/2 ML VIAL IV ONE (23:19)
[2025-03-08] MEDS: MORPHINE SULFATE INJ 2 MG/ml SYRG IV ONE (23:19)
[2025-03-09 04:19] LABS: Hematocrit 31.1 % (36.0-46.0); Hemoglobin 11.4 g/dL (12.2-16.2); Nucleated Red Blood Cells % 0.1 %
[2025-03-09 04:22] LABS: Mean Corpuscular Hemoglobin 37.4 pg (28.0-32.0); Mean Corpuscular Volume 102.4 fL (80.0-100.0)
[2025-03-09 04:33] LABS: Albumin 3.3 g/dL (3.2-4.8); Anion Gap 9 (5-15); BUN/Creatinine Ratio 42.1 (10.0-20.0); Calcium 9.3 mg/dL (8.7-10.4); Carbon Dioxide 22 mmol/L (20-31); Magnesium 1.8 mg/dL (1.6-2.6); Potassium 4.4 mmol/L (3.5-5.1); Total Protein 6.3 g/dL (5.7-8.2)
[2025-03-09 04:46] LABS: Alanine Aminotransferase 67 U/L (7-40); Alkaline Phosphatase 174 U/L (46-116); Bilirubin, Total 2.7 mg/dL (0.2-1.0); Blood Urea Nitrogen 32 mg/dL (9-23); Chloride 117 mmol/L (98-107); Glucose 191 mg/dL (74-106); Sodium 148 mmol/L (136-145)
[2025-03-09 07:25] VITALS: PULSE 68; RESP 14; O2SAT 99
[2025-03-09] MEDS: LACTULOSE 20Gm/30ML SOLN PO SCH (10:22)
[2025-03-09] MEDS: FOLIC ACID 1 MG in D5W 5% 50 ML INJ SCH (10:39)
--- NOTE | 2025-03-09 15:16 | DVHPN2 ---
Assessment/Plan Assessment/Plan Subjective 79 F with RA admitted for ALOC, now improved. was in pressors now off. pt on MTX seen today, widespread mucositis in oral and vaginal mucosa. giving lidocaine, folic acid. Objective AOx4 speaking in full sentences erythema and sloughing mucosa on oral and vagina clear breath sounds s1 s2 rrr abdomen soft nontender no le edema labs ekg imaging reviewed Assessment & Plan metabolic encephalopathy septic shoc UTI? liver cirrhosis from MTX mucositis from MTX esophageal varices w/o bleeding cholelithiasis mel likely hemodynamic hyperK PF chronic HFrEF macrocytic anemia RA on MTX DMARD c/w meropenem lidocaine for mucositis folic acid resume prior management tele diet cardiac full code crit care time 33 mintues Plan discussed with: Patient, Daughter My Orders Orders - YAJAIRA MOON MD Procedure Category Date Status Time Transfer Orders XFER 03/09/25 Transmitted 11:48 Lidocaine 2% Topical PHA 03/09/25 Logged Jelly (Lidocaine Hc 14:45 Magic Mouthwash PHA 03/09/25 Logged Suspension (Majic 18:00 Date of Service: Mar 09, 2025 Billing Provider: YAJAIRA MOON MD Common Visit Codes: [id number] CARE 30-74 MIN YAJAIRA MOON MD Mar 09, 2025 15:16
[2025-03-09] MEDS: LIDOCAINE 2% TOPICAL JELLY 5 ML URJT TOP PRN (18:08)
[2025-03-09] MEDS: MAGIC MOUTHWASH 55 ML SUSP MT SCH (18:09)
[2025-03-09] MEDS: VANCOMYCIN 500mg/100mL 100 ML IV SCH (20:57)
[2025-03-09] MEDS: HYDROcodone-ACET 7.5/325MG TAB PO PRN (22:55)
[2025-03-10 04:22] LABS: Anion Gap 9 (5-15); BUN/Creatinine Ratio 38.8 (10.0-20.0); Calcium 9.1 mg/dL (8.7-10.4); Carbon Dioxide 24 mmol/L (20-31); Potassium 4.2 mmol/L (3.5-5.1); Total Protein 5.7 g/dL (5.7-8.2)
[2025-03-10 04:23] LABS: Alanine Aminotransferase 77 U/L (7-40); Albumin 2.8 g/dL (3.2-4.8); Alkaline Phosphatase 127 U/L (46-116); Bilirubin, Total 2.6 mg/dL (0.2-1.0); Blood Urea Nitrogen 26 mg/dL (9-23); Chloride 119 mmol/L (98-107); Glucose 172 mg/dL (74-106); Sodium 152 mmol/L (136-145)
[2025-03-10 05:48] LABS: Hematocrit 26.4 % (36.0-46.0)
[2025-03-10 05:52] LABS: Hemoglobin 9.6 g/dL (12.2-16.2); Mean Corpuscular Hemoglobin 37.1 pg (28.0-32.0); Mean Corpuscular Volume 102.6 fL (80.0-100.0)
[2025-03-10 09:05] LABS: Total Cells Counted 100.0 (100)
[2025-03-10 09:06] LABS: Macrocytosis Slight
[2025-03-10 10:07] LABS: Nucleated Red Blood Cells % 0.0 %
[2025-03-10 10:09] LABS: Hematocrit 25.2 % (36.0-46.0); Hemoglobin 9.0 g/dL (12.2-16.2); Mean Corpuscular Hemoglobin 36.6 pg (28.0-32.0); Mean Corpuscular Volume 102.9 fL (80.0-100.0)
[2025-03-10 12:11] LABS: Hepatitis A Total Antibody Positive (Negative); Hepatitis B Surface Antigen Negative (Negative); Hepatitis C Antibody Negative (Negative)
--- NOTE | 2025-03-10 12:28 | DVHPNRES ---
Progress Note Date Seen: Mar 10, 2025 Resident Creating Document: BERNARDO GOODE RESIDENT Medical Necessity Reason Pt with a Central, PICC or Fol: No Subjective Review of Systems Claudette Guzmán is an 79-year-old woman who presents to the ED via EMS with chief complaint of altered level of consciousness, low grade fever, fatigue and generalized weakness, associated with suprapubic pain. Due to clinical status could not obtain review of systems, obtained past medical history from family who is at bedside. Per daughter she was recently hospitalized due to hyperammonemia in the setting of liver cirrhosis (etiology probably medication) in recently discharged eight days ago. Past Medical History: Hypertension, type 2 diabetes mellitus, HFrEF, liver cirrhosis (etiology probably secondary to medication) with esophageal varices and multiple admissions due to hyperammonemia, gastritis, lung fibrosis, rheumatoid arthritis. Surgical History: EGD with diagnosis of esophageal varices, nose and ear surgery, cataract surgery Family History: Sister had breast cancer Social History: Lives in [place] with daughter (she is the caregiver). Denies current tobacco, alcohol and other drug abuse Home Medications: Xifaxan 550 mg tab, Furosemide 40 mg tab, Potassium Cl ER 10 mEq tablet, Propranolol Hydrochloride 10 mg tab, Enulose 10 gm/15 mL john, Verquvo 2.5 mg tab, Tradjenta 5 mg tablets, Folic Acid 1 mg tab, Methotrexate 2.5 mg tablet, Naproxen DR 375 mg tab, Tramadol HCl 50 mg tab, Pregabalin 150 mg cap, Clonidine HCl 0.1 mg/24 hr patch, Pantoprazole Sodium 40 mg tab, Spironolactone 50 mg tab, Albuterol Sulfate HFA 108 mcg/act inhaler, Timolol Maleate 0.5% eye drops, Diclofenac Sodium 1% gel, Lidocaine 5% patch. PCP: Dr Siddiqi Finishing Pan Operator: Dr. Weaver Enterprise Sales Executive: Dr Thomson Patient seen and examined at bedside. Patient is still only oriented in person (not in time and place) presents mild abdominal pain especially on palpation. Since 03/09/2025 versus mucositis, bleeding (oral, anal and vaginal). Presented drop in all blood cell lineage. Patient with moderate neutropenia, deciding to indicate neutropenic precautions, under broad empiric antibiotics (meropenem, vancomycin, micafungin hand acyclovir). Continue NPO due to GI bleeding, pending anemia workup. Objective vital signs Vital Sign Date Time Temp Pulse Resp B/P (MAP) Pulse Ox O2 Delivery O2 Flow Rate FiO2 03/10/25 11:08 69 14 147/50 (82) 100 03/10/25 10:00 98.4 98.4 03/10/25 07:37 Nasal Cannula* 2 28 Total Intake and Output 03/09/25 03/09/25 03/10/25 15:00 23:00 07:00 Intake Total 292.2 ml 950 ml 651 ml Balance 292.2 ml 950 ml 651 ml medications Current Medications Medications Dose Ordered Sig/Vickie Route Start Time Stop Time Status Last Admin Dose Admin Diagnostic Test (Pha) 1 strip Q6HR 03/08/25 06:00 03/10/25 07:00 1 STRIP Insulin Human Regular Q6HR SC 03/08/25 06:00 03/10/25 07:07 2 UNITS Dextrose 50 ml UD PRN IV 03/08/25 03:15 Rifaximin 550 mg BID PO 03/08/25 10:00 03/10/25 09:39 550 MG Folic Acid 1 mg DAILY PO 03/08/25 10:00 03/10/25 09:22 1 MG Pregabalin 50 mg DAILY PO 03/08/25 10:00 03/10/25 09:39 50 MG Pantoprazole Sodium 40 mg BID IV 03/08/25 05:45 03/10/25 09:22 40 MG Folic Acid 1 mg/ Dextrose 50.2 ml @ 200.8 mls/ hr DAILY INJ 03/09/25 10:00 03/09/25 10:39 200.8 MLS/HR Lactulose 15 ml DAILY PO 03/09/25 10:00 03/10/25 09:21 15 ML Vancomycin HCl 0 ml @ 0 mls/hr UD IV 03/08/25 06:30 Meropenem 50 ml @ 17 mls/hr Q12HR IV 03/08/25 22:00 03/10/25 09:22 17 MLS/HR Metronidazole 500 mg Q8HR PO 03/08/25 14:00 03/10/25 06:44 500 MG Sodium Chloride 1,000 ml @ 75 mls/hr [id number] IV 03/08/25 19:15 03/09/25 21:55 75 MLS/HR Lidocaine HCl 5 ml Q8HPRN PRN TOP 03/09/25 14:45 03/09/25 18:08 5 ML Al Hydrox/Mg Hydrox/Simethicone 5 ml QID MT 03/09/25 18:00 03/10/25 06:43 5 ML Vancomycin HCl 100 ml @ 200 mls/hr Q12H IV 03/09/25 20:00 03/10/25 08:31 200 MLS/HR Acetaminophen/ Hydrocodone Bitart 1 tab Q8HP PRN PO 03/09/25 22:15 03/10/25 07:07 1 TAB Examination Patient lying in bed, in no acute distress General: [place], afebrile, mucosae bloody, with open ulcers Cardiovascular: Normal S1 and S2. No murmurs, gallops or rubs Respiratory: Normal ventilation mechanics. Clear lung sounds on auscultation Abdomen: Soft, nontender, no organomegaly, normal bowel sounds : Vaginal and anal mild bleeding. MSK/skin: Mobilizes 4 limbs. Skin is dry and warm. Chronic metacarpal- phalangeal and PIP deformities of RA Neurological: Oriented in 1 sphere (only person). No motor no sensitive deficits. Pupils are isocoric and reactive laboratory and microbiology Laboratory Tests 03/10/25 09:54 03/10/25 03:47 Test 03/10/25 03:47 Range/Units Serum Glucose 172 H 74-106 mg/dL Microbiology Date/Time Source Procedure Growth Status 03/08/25 05:15 Nose MRSA Screen - Final Complete 03/08/25 04:28 Urine - [place] Urine Culture - Final Complete 03/07/25 22:07 Blood Blood Culture - Preliminary NO GROWTH AFTER 48 HOURS OF INCUBATION. Resulted Problem List/Assessment/Plan Problem List/Assessment/Plan Metabolic encephalopathy secondary to sepsis probably due to UTI Ruled out hepatic encephalopathy Completed head CT which showed no acute intracranial pathology Ordered ammonia level which was mildly elevated (34-16). Continue rifaximin and lactulose Mucositis secondary to methotrexate Oral, vaginal and anal mucositis with mild bleeding Last dose of methotrexate was 03/03/2025 Discontinue since admission. The patient has liver cirrhosis, we will not benefit from methotrexate due to hepatic toxicity at this point. Patient versus mucositis associated with vaginal and anal bleeding, probably secondary to methotrexate. Currently on IV folic acid, keep NPO, under broad-spectrum IV antibiotic. Evaluate Clinimix Currently on Filgastrim Septic shock probably secondary to UTI History of multiple UTIs Unlikely spontaneous bacterial peritonitis Currently under empiric IV antibiotic (meropenem, vancomycin, micafungin and acyclovir, previously on azithromycin and metronidazole) Obtain liver ultrasound which showed no ascites Required IV fluid resuscitation Required IV vasopressors for less than 48 hours. Off since 03/09/2025 Liver cirrhosis questionably secondary to medication (methotrexate) Esophageal varices - no active bleeding History of hepatic encephalopathy Transaminitis Asymptomatic cholelithiasis Patient continues on methotrexate per senior loss control specialist. Currently discontinue methotrexate She will be re-evaluated as outpatient Continue rifaximin and lactulose On pantoprazole Completed abdominal ultrasound which evidenced cholelithiasis, no ascites JOE hemodynamically mediated (VMN) Hyperkalemia Hypovolemic Hyponatremia - Resolved Hypernatremia We will monitor creatinine Patient require hyperkalemia treatment On IV fluids. Initially NS, now 1/2 NS due to hypernatremia Pulmonary fibrosis - no home oxygen requirement Unlikely pneumonia Patient has rheumatoid arthritis treated with methotrexate. Could be probable cause of pulmonary fibrosis Completed chest x-ray which shows questionable atypical pneumonia. Patient has history of pulmonary fibrosis. Currently under empiric IV antibiotic (meropenem, vancomycin, micafungin and acyclovir, previously on azithromycin and metronidazole) Chronic systolic congestive heart failure (HFrEF) - no exacerbation No signs of fluid overload at the moment. Had to discontinue most GDM T due to septic shock. Re-initiate once per patient stabilized Pancytopenia - Acute Macrocytic anemia Thrombocytopenia probably secondary to liver cirrhosis Probably secondary to methotrexate Presented acute drop in all cell lines. Indicated Filgastrim Rheumatoid arthritis Currently discontinued methotrexate Suggest following up as outpatient. Hypertension Diabetes Currently discontinued antihypertensive medication due to septic shock On insulin sliding scale Gave her advice on healthy lifestyle habits Glaucoma Continue eyedrops (timolol) Goals of care discussed with patient and family (granddaughter who is the power regulatory attorney and caregiver) for over 18 minutes: Full code status Discussed plan with Dr. Vines, patient and nurses: Patient currently telemetry status with neutropenic isolation due to mucositis and moderate neutropenia, under empiric IV antibiotic, and IV fluid resuscitation (limited due to history of HFrEF). Indicated Filgastrim due to Pancytopenia, ordered anemia work-up. Discontinue methotrexate, contraindicated in liver cirrhosis and with active infection. Patient has poor prognosis. Critical care time spent including chart review, discussion with family and patient evaluation, excluding procedures: 69 minutes Plan discussed with: Patient, Daughter, Other (Nurses) My Orders My Orders Orders - BERNARDO GOODE Procedure Category Date Status Time Acyclovir Ivpb Zovirax PHA 03/10/25 Transmitted 14:00 Acyclovir Ivpb Zovirax PHA 03/10/25 Transmitted 12:30 Filgrastim-Tbo PHA 03/11/25 Transmitted (Granix) 10:00 Filgrastim-Tbo PHA 03/10/25 Transmitted (Granix) 12:30 Micafungin Sodium PHA 03/11/25 Transmitted (Mycamine) 10:00 Micafungin Sodium PHA 03/10/25 Transmitted (Mycamine) 12:30 Date of Service: Mar 10, 2025 Billing Provider: YAJAIRA VINES MD Common Visit Codes: [id number] CARE 30-74 MIN (critical care time 40 minutes) BERNARDO GOODE Mar 10, 2025 12:27 YAJAIRA VINES MD Mar 15, 2025 21:08
[2025-03-10] MEDS: FILGRASTIM (TBO) 300 MCG/0.5 ML SYRG SC ONE (13:26)
--- NOTE | 2025-03-10 13:54 | DVHPN2 ---
Progress Note - Dictate Date Seen: Mar 09, 2025 Medical Necessity Reason Pt with a Central, PICC or Fol: No Subjective PT WITH PANCYTOPENIA SEPSIS R/O DIC HYPOTENSION MYELOSUPPRESSION SECONDARY TO SEPSIS MTX NOW WITH ABX USE SEPSIS PMH ; HFrEF DIALTED CM PUL FIBROSIS HX OF CIRRHOSIS CRYPTOGENIC RIGHT SIDED HF FROM PUL FIBROSIS AND HFrEF PORTAL HYPERTENSION RA HTN DIABETES HYPOTHYROIDISM vital signs Vital Sign Date Time Temp Pulse Resp B/P (MAP) Pulse Ox O2 Delivery O2 Flow Rate FiO2 03/10/25 12:00 73 03/10/25 11:08 14 147/50 (82) 100 03/10/25 10:00 98.4 98.4 03/10/25 07:37 Nasal Cannula* 2 28 Total Intake and Output 03/09/25 03/09/25 03/10/25 15:00 23:00 07:00 Intake Total 292.2 ml 950 ml 651 ml Balance 292.2 ml 950 ml 651 ml medications Current Medications Medications Dose Ordered Sig/Vickie Route Start Time Stop Time Status Last Admin Dose Admin Diagnostic Test (Pha) 1 strip Q6HR 03/08/25 06:00 03/10/25 13:11 1 STRIP Insulin Human Regular Q6HR SC 03/08/25 06:00 03/10/25 07:07 2 UNITS Dextrose 50 ml UD PRN IV 03/08/25 03:15 Rifaximin 550 mg BID PO 03/08/25 10:00 03/10/25 09:39 550 MG Folic Acid 1 mg DAILY PO 03/08/25 10:00 03/10/25 09:22 1 MG Pregabalin 50 mg DAILY PO 03/08/25 10:00 03/10/25 09:39 50 MG Pantoprazole Sodium 40 mg BID IV 03/08/25 05:45 03/10/25 09:22 40 MG Lactulose 15 ml DAILY PO 03/09/25 10:00 03/10/25 09:21 15 ML Vancomycin HCl 0 ml @ 0 mls/hr UD IV 03/08/25 06:30 Meropenem 50 ml @ 17 mls/hr Q12HR IV 03/08/25 22:00 03/10/25 09:22 17 MLS/HR Metronidazole 500 mg Q8HR PO 03/08/25 14:00 03/10/25 13:25 500 MG Sodium Chloride 1,000 ml @ 75 mls/hr [id number] IV 03/08/25 19:15 03/09/25 21:55 75 MLS/HR Lidocaine HCl 5 ml Q8HPRN PRN TOP 03/09/25 14:45 03/09/25 18:08 5 ML Al Hydrox/Mg Hydrox/Simethicone 5 ml QID MT 03/09/25 18:00 03/10/25 13:11 5 ML Vancomycin HCl 100 ml @ 200 mls/hr Q12H IV 03/09/25 20:00 03/10/25 08:31 200 MLS/HR Acetaminophen/ Hydrocodone Bitart 1 tab Q8HP PRN PO 03/09/25 22:15 03/10/25 07:07 1 TAB Acyclovir Sodium 500 mg/Dextrose 110 ml @ 110 mls/hr Q8HR IV 03/10/25 14:00 UNV Tbo-Filgrastim 300 mcg DAILY SC 03/11/25 10:00 Micafungin Sodium 100 mg/Sodium Chloride 100 ml @ 100 mls/hr DAILY IV 03/11/25 10:00 laboratory and microbiology Laboratory Tests 03/10/25 09:54 03/10/25 03:47 Test 03/10/25 03:47 Range/Units Serum Glucose 172 H 74-106 mg/dL Problem List PANCYTOPENIA SEPSIS R/O DIC HYPOTENSION MYELOSUPPRESSION SECONDARY TO SEPSIS MTX NOW WITH ABX USE SEPSIS PMH ; HFrEF DIALTED CM PUL FIBROSIS HX OF CIRRHOSIS CRYPTOGENIC RIGHT SIDED HF FROM PUL FIBROSIS AND HFrEF PORTAL HYPERTENSION RA HTN DIABETES HYPOTHYROIDISM SEVERE VOLUME DEPLETION WITH HYPERNATREMIA Assessment/Plan RECOMMEND CHANGE OF ABX BECAUSE OF MYELOSUPPRESSION DIC SCREEN CHANGE FLUID TO D5 1/2NS Plan discussed with: Patient CHRIS QUINTEROS MD Mar 10, 2025 13:54
[2025-03-10] MEDS: ACYCLOVIR SOD 50MG/ML 500 MG in D5W 5% 100 ML IV ONE (14:07)
[2025-03-10] MEDS: MICAFUNGIN SODIUM 100 MG in SODIUM CHL 0.9% 100 ML IV ONE (14:08)
[2025-03-10] MEDS ORDERED: CLINIMIX PER PHARMACY 0 ML IV SCH (15:45)
[2025-03-10] MEDS: FOLIC ACID 1 MG in D5W 5% 50 ML INJ ONE (15:45)
[2025-03-10 17:05] LABS: Hematocrit 25.3 % (36.0-46.0); Hemoglobin 9.0 g/dL (12.2-16.2); Mean Corpuscular Hemoglobin 37.2 pg (28.0-32.0); Mean Corpuscular Volume 105.1 fL (80.0-100.0)
[2025-03-10 17:17] LABS: Anion Gap 8 (5-15); BUN/Creatinine Ratio 39.3 (10.0-20.0); Carbon Dioxide 24 mmol/L (20-31); INR 1.37 (0.9-1.15); Partial Thromboplastin Time 39.8 SEC (24.5-34.5); Potassium 4.0 mmol/L (3.5-5.1); Prothrombin Time 14.1 sec (9.3-11.8)
[2025-03-10 17:18] LABS: Alanine Aminotransferase 71 U/L (7-40); Albumin 2.7 g/dL (3.2-4.8); Alkaline Phosphatase 117 U/L (46-116); Bilirubin, Total 2.6 mg/dL (0.2-1.0); Blood Urea Nitrogen 24 mg/dL (9-23); Calcium 8.7 mg/dL (8.7-10.4); Chloride 118 mmol/L (98-107); Glucose 162 mg/dL (74-106); Sodium 150 mmol/L (136-145); Total Protein 5.5 g/dL (5.7-8.2)
[2025-03-10 17:52] LABS: Total Cells Counted 100.0 (100)
[2025-03-10 17:53] LABS: Anisocytosis Slight; Macrocytosis Moderate
[2025-03-10 18:14] LABS: Iron 128.0 ug/dL (50-170)
[2025-03-10 18:20] LABS: Total Iron Binding Capacity 174.0 ug/dL (250-425)
[2025-03-10 18:33] LABS: Wright Stain Ready for Review
[2025-03-10] MEDS: SOD CHL 0.45% 1,000 ML IV SCH (19:22)
[2025-03-10 19:30] VITALS: PULSE 93; RESP 17; O2SAT 100
[2025-03-10] MEDS: ACYCLOVIR SOD 50MG/ML 500 MG in D5W 5% 100 ML IV SCH (22:12)
[2025-03-11] MEDS: MORPHINE SULFATE INJ 2 MG/ml SYRG IV ONE (02:50)
--- NOTE | 2025-03-11 05:20 | DVH ---
CHEST RADIOGRAPH Indication: SOB Technique: Single frontal view of the chest was obtained COMPARISON: XY CHEST XRAY 1 VIEW on DOS: 03/07/25, XY CHEST PORTABLE on DOS: 02/28/25, XY CHEST PORTABLE on DOS: 01/14/25, XY CHEST XRAY 1 VIEW on DOS: 09/27/24 FINDINGS: Lines and Tubes: None Lungs: Stable chronic appearing bilateral interstitial pulmonary markings and Diffuse multifocal bila teral pulmonary airspace disease. Pleura: No effusion. No pneumothorax. Cardiomediastinal contours: Unremarkable Bones: Unremarkable IMPRESSION: 1. Stable diffuse multifocal pulmonary airspace disease. 2. Chronic appearing bilateral interstitial pulmonary markings.
[2025-03-11 07:24] LABS: Mean Corpuscular Hemoglobin 37.3 pg (28.0-32.0); Nucleated Red Blood Cells % 0.0 %
[2025-03-11 07:26] LABS: Hematocrit 25.3 % (36.0-46.0); Mean Corpuscular Volume 102.7 fL (80.0-100.0)
[2025-03-11 07:28] LABS: Hemoglobin 9.2 g/dL (12.2-16.2)
[2025-03-11 07:45] LABS: Alanine Aminotransferase 65 U/L (7-40); Alkaline Phosphatase 117 U/L (46-116); Anion Gap 9 (5-15); BUN/Creatinine Ratio 35.0 (10.0-20.0); Blood Urea Nitrogen 21 mg/dL (9-23); Calcium 8.6 mg/dL (8.7-10.4); Carbon Dioxide 26 mmol/L (20-31); Chloride 116 mmol/L (98-107); Glucose 140 mg/dL (74-106); Magnesium 1.8 mg/dL (1.6-2.6); Potassium 4.1 mmol/L (3.5-5.1); Sodium 151 mmol/L (136-145); Total Protein 5.5 g/dL (5.7-8.2)
[2025-03-11 07:46] LABS: Albumin 2.7 g/dL (3.2-4.8)
[2025-03-11 07:47] LABS: Bilirubin, Total 2.4 mg/dL (0.2-1.0)
[2025-03-11 08:46] LABS: INR 1.43 (0.9-1.15); Partial Thromboplastin Time 38.2 SEC (24.5-34.5); Prothrombin Time 14.6 sec (9.3-11.8)
[2025-03-11] MEDS: FOLIC ACID 1 MG in D5W 5% 50 ML INJ SCH (10:00)
--- NOTE | 2025-03-11 10:26 | MEDREC ---
[facility] ASP Intervention Section I [facility] ASP Intervention: Review courses of therapy (MRSA negative, vancomycin is no longer indicated for treating CAP. Please consider d/c vancomycin.) CARMELO DICKENS [facility] RESIDENT Mar 11, 2025 10:26
[2025-03-11] MEDS: FILGRASTIM (TBO) 300 MCG/0.5 ML SYRG SC SCH (10:37)
[2025-03-11] MEDS: MICAFUNGIN SODIUM 100 MG in SODIUM CHL 0.9% 100 ML IV SCH (11:30)
[2025-03-11] MEDS ORDERED: VANCOMYCIN 1GM/250ML KIT 250 ML IV SCH (12:00)
--- NOTE | 2025-03-11 12:43 | DVHPN2 ---
Progress Note - Dictate Date Seen: Mar 10, 2025 Medical Necessity Reason Pt with a Central, PICC or Fol: No Subjective PT WITH PANCYTOPENIA SEPSIS R/O DIC HYPOTENSION MYELOSUPPRESSION SECONDARY TO SEPSIS MTX NOW WITH ABX USE SEPSIS PMH ; HFrEF DIALTED CM PUL FIBROSIS HX OF CIRRHOSIS CRYPTOGENIC RIGHT SIDED HF FROM PUL FIBROSIS AND HFrEF PORTAL HYPERTENSION RA HTN DIABETES HYPOTHYROIDISM vital signs Vital Sign Date Time Temp Pulse Resp B/P (MAP) Pulse Ox O2 Delivery O2 Flow Rate FiO2 03/11/25 10:00 85 16 160/64 (96) 99 03/11/25 01:00 98.5 98.5 03/10/25 19:30 Nasal Cannula* 2 28 Total Intake and Output 03/10/25 03/10/25 03/11/25 15:00 23:00 07:00 Intake Total 300 ml Balance 300 ml medications Current Medications Medications Dose Ordered Sig/Vickie Route Start Time Stop Time Status Last Admin Dose Admin Diagnostic Test (Pha) 1 strip Q6HR 03/08/25 06:00 03/11/25 11:56 1 STRIP Insulin Human Regular Q6HR SC 03/08/25 06:00 03/11/25 11:56 3 UNITS Dextrose 50 ml UD PRN IV 03/08/25 03:15 Rifaximin 550 mg BID PO 03/08/25 10:00 03/10/25 22:12 550 MG Folic Acid 1 mg DAILY PO 03/08/25 10:00 Hold 03/10/25 09:22 1 MG Pregabalin 50 mg DAILY PO 03/08/25 10:00 03/11/25 10:36 50 MG Pantoprazole Sodium 40 mg BID IV 03/08/25 05:45 03/11/25 10:36 40 MG Lactulose 15 ml DAILY PO 03/09/25 10:00 03/11/25 10:36 15 ML Vancomycin HCl 0 ml @ 0 mls/hr UD IV 03/08/25 06:30 Meropenem 50 ml @ 17 mls/hr Q12HR IV 03/08/25 22:00 03/10/25 23:55 17 MLS/HR Lidocaine HCl 5 ml Q8HPRN PRN TOP 03/09/25 14:45 03/09/25 18:08 5 ML Al Hydrox/Mg Hydrox/Simethicone 5 ml QID MT 03/09/25 18:00 9/9/25 06:19 5 ML Acyclovir Sodium 500 mg/Dextrose 110 ml @ 110 mls/hr Q8HR IV 03/10/25 22:00 03/11/25 06:52 110 MLS/HR Tbo-Filgrastim 300 mcg DAILY SC 03/11/25 10:00 03/11/25 10:37 300 MCG Micafungin Sodium 100 mg/Sodium Chloride 100 ml @ 100 mls/hr DAILY IV 03/11/25 10:00 03/11/25 11:30 100 MLS/HR Folic Acid 1 mg/ Dextrose 50.2 ml @ 200.8 mls/ hr DAILY INJ 03/11/25 10:00 03/11/25 10:00 200.8 MLS/HR Sodium Chloride 1,000 ml @ 100 mls/hr Q10H IV 03/10/25 16:15 03/10/25 19:22 100 MLS/HR Vancomycin HCl 250 ml @ 250 mls/hr Q12H IV 03/11/25 12:00 UNV Vancomycin HCl 100 ml @ 100 mls/hr Q12H IV 03/11/25 13:00 laboratory and microbiology Laboratory Tests 03/11/25 07:00 Test 03/11/25 07:00 Range/Units Serum Glucose 140 H 74-106 mg/dL Problem List PANCYTOPENIA SEPSIS R/O DIC HYPOTENSION MYELOSUPPRESSION SECONDARY TO SEPSIS MTX NOW WITH ABX USE SEPSIS PMH ; HFrEF DIALTED CM PUL FIBROSIS HX OF CIRRHOSIS CRYPTOGENIC RIGHT SIDED HF FROM PUL FIBROSIS AND HFrEF PORTAL HYPERTENSION RA HTN DIABETES HYPOTHYROIDISM SEVERE VOLUME DEPLETION WITH HYPERNATREMIA Assessment/Plan RECOMMEND CHANGE OF ABX BECAUSE OF MYELOSUPPRESSION DIC SCREEN CHANGE FLUID TO D5 1/2NS STILL WITH VOLUME DEPLETION Plan discussed with: Patient CHRIS QUINTEROS MD Mar 11, 2025 12:43
[2025-03-11] MEDS: VANCOMYCIN 750mg/100mL IV SCH (13:30)
[2025-03-11] MEDS: KETOROLAC TROMETH 30 MG/ML 1ML VIAL IV ONE (13:48)
--- NOTE | 2025-03-11 13:48 | DVHPNRES ---
Progress Note Date Seen: Mar 11, 2025 Resident Creating Document: BERNARDO GOODE RESIDENT Medical Necessity Reason Pt with a Central, PICC or Fol: No Subjective Review of Systems Claudette Guzmán is an 79-year-old woman who presents to the ED via EMS with chief complaint of altered level of consciousness, low grade fever, fatigue and generalized weakness, associated with suprapubic pain. Due to clinical status could not obtain review of systems, obtained past medical history from family who is at bedside. Per daughter she was recently hospitalized due to hyperammonemia in the setting of liver cirrhosis (etiology probably medication) in recently discharged eight days ago. Past Medical History: Hypertension, type 2 diabetes mellitus, HFrEF, liver cirrhosis (etiology probably secondary to medication) with esophageal varices and multiple admissions due to hyperammonemia, gastritis, lung fibrosis, rheumatoid arthritis. Surgical History: EGD with diagnosis of esophageal varices, nose and ear surgery, cataract surgery Family History: Sister had breast cancer Social History: Lives in [place] with daughter (she is the caregiver). Denies current tobacco, alcohol and other drug abuse Home Medications: Xifaxan 550 mg tab, Furosemide 40 mg tab, Potassium Cl ER 10 mEq tablet, Propranolol Hydrochloride 10 mg tab, Enulose 10 gm/15 mL john, Verquvo 2.5 mg tab, Tradjenta 5 mg tablets, Folic Acid 1 mg tab, Methotrexate 2.5 mg tablet, Naproxen DR 375 mg tab, Tramadol HCl 50 mg tab, Pregabalin 150 mg cap, Clonidine HCl 0.1 mg/24 hr patch, Pantoprazole Sodium 40 mg tab, Spironolactone 50 mg tab, Albuterol Sulfate HFA 108 mcg/act inhaler, Timolol Maleate 0.5% eye drops, Diclofenac Sodium 1% gel, Lidocaine 5% patch. PCP: Dr Siddiqi Supervisor Cigar Processing: Dr. Weaver Cable Tender: Dr Thomson Patient seen and examined at bedside. Patient is still only oriented in person (not in time and place) presents mild abdominal pain especially on palpation. Since 03/09/2025 presents mucositis, bleeding orally, anal and vaginal bleeding have resolved. Presented drop in all blood cell lineage, which responded to filgastrium, discontinued neutropenic precaution isolation. Adjusting empiric antibiotics (meropenem, vancomycin, and nystatin swish and swallow). Continue NPO due to GI bleeding, pending anemia workup. Objective vital signs Vital Sign Date Time Temp Pulse Resp B/P (MAP) Pulse Ox O2 Delivery O2 Flow Rate FiO2 03/11/25 12:00 77 03/11/25 12:00 97.7 13 160/59 (92) 100 97.7 03/10/25 19:30 Nasal Cannula* 2 28 Total Intake and Output 03/10/25 03/10/25 03/11/25 15:00 23:00 07:00 Intake Total 300 ml Balance 300 ml medications Current Medications Medications Dose Ordered Sig/Vickie Route Start Time Stop Time Status Last Admin Dose Admin Diagnostic Test (Pha) 1 strip Q6HR 03/08/25 06:00 03/11/25 11:56 1 STRIP Insulin Human Regular Q6HR SC 03/08/25 06:00 03/11/25 11:56 3 UNITS Dextrose 50 ml UD PRN IV 03/08/25 03:15 Rifaximin 550 mg BID PO 03/08/25 10:00 03/10/25 22:12 550 MG Folic Acid 1 mg DAILY PO 03/08/25 10:00 Hold 03/10/25 09:22 1 MG Pregabalin 50 mg DAILY PO 03/08/25 10:00 03/11/25 10:36 50 MG Pantoprazole Sodium 40 mg BID IV 03/08/25 05:45 03/11/25 10:36 40 MG Lactulose 15 ml DAILY PO 03/09/25 10:00 03/11/25 10:36 15 ML Vancomycin HCl 0 ml @ 0 mls/hr UD IV 03/08/25 06:30 Meropenem 50 ml @ 17 mls/hr Q12HR IV 03/08/25 22:00 03/11/25 12:50 17 MLS/HR Lidocaine HCl 5 ml Q8HPRN PRN TOP 03/09/25 14:45 03/09/25 18:08 5 ML Al Hydrox/Mg Hydrox/Simethicone 5 ml QID MT 03/09/25 18:00 03/11/25 12:39 5 ML Acyclovir Sodium 500 mg/Dextrose 110 ml @ 110 mls/hr Q8HR IV 03/10/25 22:00 03/11/25 06:52 110 MLS/HR Tbo-Filgrastim 300 mcg DAILY SC 03/11/25 10:00 03/11/25 10:37 300 MCG Micafungin Sodium 100 mg/Sodium Chloride 100 ml @ 100 mls/hr DAILY IV 03/11/25 10:00 03/11/25 11:30 100 MLS/HR Folic Acid 1 mg/ Dextrose 50.2 ml @ 200.8 mls/ hr DAILY INJ 03/11/25 10:00 03/11/25 10:00 200.8 MLS/HR Sodium Chloride 1,000 ml @ 100 mls/hr Q10H IV 03/10/25 16:15 03/11/25 12:40 100 MLS/HR Vancomycin HCl 250 ml @ 250 mls/hr Q12H IV 03/11/25 12:00 UNV Vancomycin HCl 100 ml @ 100 mls/hr Q12H IV 03/11/25 13:00 Examination Patient lying in bed, in no acute distress General: Dennison, afebrile, mucosae bloody, with open ulcers Cardiovascular: Normal S1 and S2. Systolic ejective mid peaking crescendo decrescendo murmur best heard in aortic foci intensity 3/6. No gallops or rubs Respiratory: Normal ventilation mechanics. Clear lung sounds on auscultation Abdomen: Soft, nontender, no organomegaly, normal bowel sounds : Vaginal and anal mild bleeding. MSK/skin: Mobilizes 4 limbs. Skin is dry and warm. Chronic metacarpal- phalangeal and PIP deformities of RA Neurological: Oriented in 1 sphere (only person). No motor no sensitive deficits. Pupils are isocoric and reactive laboratory and microbiology Laboratory Tests 03/11/25 07:00 Test 03/11/25 07:00 Range/Units Serum Glucose 140 H 74-106 mg/dL Microbiology Date/Time Source Procedure Growth Status 03/08/25 05:15 Nose MRSA Screen - Final Complete 03/08/25 04:28 Urine - [place] Urine Culture - Final Complete 03/07/25 22:07 Blood Blood Culture - Preliminary NO GROWTH AFTER 72 HOURS OF INCUBATION. Resulted Problem List/Assessment/Plan Problem List/Assessment/Plan Metabolic encephalopathy secondary to sepsis probably due to UTI Ruled out hepatic encephalopathy Completed head CT which showed no acute intracranial pathology Ordered ammonia level which was mildly elevated (34-16-28). Continue rifaximin and lactulose Mucositis secondary to methotrexate Oral, vaginal and anal mucositis with mild bleeding Last dose of methotrexate was 03/03/2025 Discontinue since admission. The patient has liver cirrhosis, we will not benefit from methotrexate due to hepatic toxicity at this point. Patient versus mucositis associated with vaginal and anal bleeding, probably secondary to methotrexate. Currently on IV folic acid, keep NPO, under broad-spectrum IV antibiotic. Evaluate Clinimix Required Filgastrim fro 48 hours, currently discontinued since neutropenia has resolved. Deescalating antibiotic Septic shock probably secondary to UTI History of multiple UTIs Unlikely spontaneous bacterial peritonitis Currently under empiric IV antibiotic (meropenem, vancomycin, nystatin swish and swallow, previously on micafungin and acyclovir, azithromycin and metronidazole) Obtain liver ultrasound which showed no ascites Required IV fluid resuscitation Required IV vasopressors for less than 48 hours. 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 Currently discontinue methotrexate She will be re-evaluated as outpatient Continue rifaximin and lactulose On pantoprazole Completed abdominal ultrasound which evidenced cholelithiasis, no ascites JOE hemodynamically mediated (VMN) Hyperkalemia Hypovolemic Hyponatremia - Resolved Hypernatremia We will monitor creatinine Patient required hyperkalemia treatment On IV fluids. Initially NS, now 1/2 NS due to hypernatremia Pulmonary fibrosis - no home oxygen requirement Unlikely pneumonia Patient has rheumatoid arthritis treated with methotrexate. Could be probable cause of pulmonary fibrosis Completed chest x-ray which shows questionable atypical pneumonia. Patient has history of pulmonary fibrosis. Currently under empiric IV antibiotic (meropenem, vancomycin, nystatin swish and swallow, previously on micafungin and acyclovir, azithromycin and metronidazole) Chronic systolic congestive heart failure (HFrEF) - no exacerbation No signs of fluid overload at the moment. Had to discontinue most GDM T due to septic shock. Re-initiate once per patient stabilized Pancytopenia - Acute Neurtropenia - Improved Macrocytic anemia Thrombocytopenia probably secondary to liver cirrhosis Probably secondary to methotrexate Presented acute drop in all cell lines. Required Filgastrim for 48 hours, currently discontinued. Rheumatoid arthritis Currently discontinued methotrexate Suggest following up as outpatient. Hypertension Diabetes Currently discontinued antihypertensive medication due to septic shock On insulin sliding scale Gave her advice on healthy lifestyle habits Glaucoma Continue eyedrops (timolol) Goals of care discussed with patient and family (granddaughter who is the power personal injury attorney and caregiver) for over 18 minutes: Full code status Discussed plan with Dr. Vines, patient and nurses: Patient currently telemetry status with neutropenic isolation due to mucositis and moderate neutropenia, under empiric IV antibiotic, and IV fluid resuscitation (limited due to history of HFrEF). Indicated Filgastrim due to Pancytopenia, ordered anemia work-up. Discontinue methotrexate, contraindicated in liver cirrhosis and with active infection. Patient has poor prognosis. Critical care time spent including chart review, discussion with family and patient evaluation, excluding procedures: 69 minutes Plan discussed with: Patient, Daughter, Other (Nurses) My Orders My Orders Orders - BERNARDO GOODE Procedure Category Date Status Time Folic Acid PHA 03/11/25 In Process 10:00 Isolation Order ORDERS 03/10/25 Transmitted 16:05 Sod Chl 0.45% (Sodium PHA 03/10/25 In Process Chloride 0.45% Via 16:15 Haptoglobin LAB 03/10/25 In Process 16:08 Chest Xray 1 View XY 03/11/25 Resulted 04:00 D/C Isolation ORDERS 03/11/25 Transmitted 08:22 Sputum Induction RT 03/11/25 Logged 09:17 Respiratory Culture CHRISTIANO 03/11/25 Logged W/ Gs 09:17 Date of Service: Mar 11, 2025 Billing Provider: YAJAIRA VINES MD Common Visit Codes: [id number] INP/OBS CARE(HIGH) BERNARDO GOODE RESIDENT Mar 11, 2025 13:48 YAJAIRA VINES MD Mar 15, 2025 21:35
[2025-03-11] MEDS: NYSTATIN (MOUTH-THROAT) 500,000 UNITS/5 ML SUSP MT ONE (14:29)
[2025-03-11 20:00] VITALS: O2SAT 100
[2025-03-11 20:01] VITALS: BP 153/58; PULSE 75; RESP 16; TEMP 98.8; O2SAT 100
[2025-03-11 21:00] VITALS: BP 151/98; PULSE 74; RESP 17; TEMP 98.8; O2SAT 100
[2025-03-11] MEDS: NYSTATIN (MOUTH-THROAT) 500,000 UNITS/5 ML SUSP MT SCH (21:07)
[2025-03-12] VITALS (12 sets, daily range): BP systolic 111–160; BP diastolic 54–82; PULSE 61–78; RESP 16–22; TEMP 96.7–98.8; O2SAT 97–100
[2025-03-12] MEDS ORDERED: RIFA550T PO (02:20)
[2025-03-12] MEDS ORDERED: PROP1TAB51 PO (02:20)
[2025-03-12] MEDS ORDERED: FOLI-119 PO (02:20)
[2025-03-12] MEDS ORDERED: FURO40TA4 PO (02:20)
[2025-03-12] MEDS: MORPHINE SULFATE INJ 2 MG/ml SYRG IV ONE (05:51)
[2025-03-12 09:05] LABS: Hematocrit 25.1 % (36.0-46.0); Hemoglobin 9.1 g/dL (12.2-16.2); Mean Corpuscular Hemoglobin 37.4 pg (28.0-32.0); Mean Corpuscular Volume 103.7 fL (80.0-100.0)
[2025-03-12 09:18] LABS: Anion Gap 9 (5-15); BUN/Creatinine Ratio 39.3 (10.0-20.0); Blood Urea Nitrogen 22 mg/dL (9-23); Carbon Dioxide 27 mmol/L (20-31); Magnesium 1.7 mg/dL (1.6-2.6); Potassium 4.0 mmol/L (3.5-5.1)
[2025-03-12 09:23] LABS: Alanine Aminotransferase 50 U/L (7-40); Albumin 2.6 g/dL (3.2-4.8); Alkaline Phosphatase 118 U/L (46-116); Bilirubin, Total 2.1 mg/dL (0.2-1.0); Calcium 8.6 mg/dL (8.7-10.4); Chloride 117 mmol/L (98-107); Glucose 124 mg/dL (74-106); Sodium 153 mmol/L (136-145); Total Protein 5.3 g/dL (5.7-8.2)
[2025-03-12 10:03] LABS: Total Cells Counted 100.0 (100)
--- NOTE | 2025-03-12 13:58 | DVHPN2 ---
Progress Note - Dictate Date Seen: Mar 12, 2025 Medical Necessity Reason Pt with a Central, PICC or Fol: No Subjective PT WITH PANCYTOPENIA SEPSIS R/O DIC HYPOTENSION MYELOSUPPRESSION SECONDARY TO SEPSIS MTX NOW WITH ABX USE SEPSIS PMH ; HFrEF DIALTED CM PUL FIBROSIS HX OF CIRRHOSIS CRYPTOGENIC RIGHT SIDED HF FROM PUL FIBROSIS AND HFrEF PORTAL HYPERTENSION RA HTN DIABETES HYPOTHYROIDISM vital signs Vital Sign Date Time Temp Pulse Resp B/P (MAP) Pulse Ox O2 Delivery O2 Flow Rate FiO2 03/12/25 09:00 97.6 71 16 154/76 (102) 100 97.6 03/12/25 07:31 Nasal Cannula* 2 28 Total Intake and Output 03/11/25 03/11/25 03/12/25 15:00 23:00 07:00 Intake Total 650.8 ml Output Total 200 ml Balance 650.8 ml -200 ml medications Current Medications Medications Dose Ordered Sig/Vickie Route Start Time Stop Time Status Last Admin Dose Admin Diagnostic Test (Pha) 1 strip Q6HR 03/08/25 06:00 03/12/25 11:40 1 STRIP Insulin Human Regular Q6HR SC 03/08/25 06:00 03/12/25 05:58 2 UNITS Dextrose 50 ml UD PRN IV 03/08/25 03:15 Rifaximin 550 mg BID PO 03/08/25 10:00 03/10/25 22:12 550 MG Folic Acid 1 mg DAILY PO 03/08/25 10:00 Hold 03/10/25 09:22 1 MG Pregabalin 50 mg DAILY PO 03/08/25 10:00 03/11/25 10:36 50 MG Pantoprazole Sodium 40 mg BID IV 03/08/25 05:45 03/12/25 09:40 40 MG Lactulose 15 ml DAILY PO 03/09/25 10:00 03/11/25 10:36 15 ML Vancomycin HCl 0 ml @ 0 mls/hr UD IV 03/08/25 06:30 Meropenem 50 ml @ 17 mls/hr Q12HR IV 03/08/25 22:00 03/12/25 09:40 17 MLS/HR Lidocaine HCl 5 ml Q8HPRN PRN TOP 03/09/25 14:45 03/09/25 18:08 5 ML Al Hydrox/Mg Hydrox/Simethicone 5 ml QID MT 03/09/25 18:00 03/12/25 12:46 5 ML Sodium Chloride 1,000 ml @ 100 mls/hr Q10H IV 03/10/25 16:15 03/11/25 22:17 100 MLS/HR Vancomycin HCl 250 ml @ 250 mls/hr Q12H IV 03/11/25 12:00 UNV Vancomycin HCl 100 ml @ 100 mls/hr Q12H IV 03/11/25 13:00 03/12/25 12:43 100 MLS/HR Nystatin 5 ml QID MT 03/11/25 18:00 03/12/25 12:46 5 ML Timolol Maleate 1 drop BID EACHEYE 03/12/25 22:00 Patient Own Medication 1 BIDP PRN EACHEYE 03/12/25 12:00 UNV Patient Own Medication 1 BIDP PRN [facility] 03/12/25 12:00 UNV laboratory and microbiology Laboratory Tests 03/12/25 08:17 Test 03/12/25 08:17 Range/Units Serum Glucose 124 H 74-106 mg/dL Problem List PANCYTOPENIA SEPSIS R/O DIC HYPOTENSION MYELOSUPPRESSION SECONDARY TO SEPSIS MTX NOW WITH ABX USE SEPSIS PMH ; HFrEF DIALTED CM PUL FIBROSIS HX OF CIRRHOSIS CRYPTOGENIC RIGHT SIDED HF FROM PUL FIBROSIS AND HFrEF PORTAL HYPERTENSION RA HTN DIABETES HYPOTHYROIDISM SEVERE VOLUME DEPLETION WITH HYPERNATREMIA Assessment/Plan RECOMMEND CHANGE OF ABX BECAUSE OF MYELOSUPPRESSION DIC SCREEN CHANGE FLUID TO D5 1/2NS STILL WITH VOLUME DEPLETION MYELOSUPPRESSION SECONDARY TO MTX VS MYELOPROLIFERATIVE DISORDER BONE MARROW BX Plan discussed with: Patient CHRIS QUINTEROS MD Mar 12, 2025 13:58
[2025-03-12] MEDS ORDERED: [UNRECOGNIZED DRUG - OTHER] EACHEYE PRN (15:00)
--- NOTE | 2025-03-12 16:42 | ECG ---
[facility] Test Date: 2025-03-07 Test Time: 21:50:15 Pat Name: MAIRA LOPEZ Department: Room: 0234 Gender: F Health Benefits Specialist: TOMMY : 1945 Requested By: OTIS SHIRLEY Order Number: [id number] Reading MD: Diego Bolton Measurements Intervals [place] Rate: 72 P: 46 PA: 189 QRS: -51 QRSD: 111 T: 57 QT: 420 QTc: 460 Interpretive Statements Sinus rhythm Left anterior fascicular block Abnormal R-wave progression, late transition Electronically Signed On 03-18-2025 18:50:26 PDT by Diego Bolton Please click the below link to view image of tracing.
[2025-03-12] MEDS: TIMOLOL MAL 0.5% OPTH(EYE) SOL 5ML EACHEYE SCH (21:19)
--- NOTE | 2025-03-12 21:39 | DVHPNRES ---
Progress Note Date Seen: Mar 12, 2025 Resident Creating Document: LIZZ MUNGUIA RESIDENT Medical Necessity Reason Pt with a Central, PICC or Fol: No Subjective Review of Systems Claudette Guzmán is an 79-year-old woman who presents to the ED via EMS with chief complaint of altered level of consciousness, low grade fever, fatigue and generalized weakness, associated with suprapubic pain. Due to clinical status could not obtain review of systems, obtained past medical history from family who is at bedside. Per daughter she was recently hospitalized due to hyperammonemia in the setting of liver cirrhosis (etiology probably medication) in recently discharged eight days ago. Past Medical History: Hypertension, type 2 diabetes mellitus, HFrEF, liver cirrhosis (etiology probably secondary to medication) with esophageal varices and multiple admissions due to hyperammonemia, gastritis, lung fibrosis, rheumatoid arthritis. Surgical History: EGD with diagnosis of esophageal varices, nose and ear surgery, cataract surgery Family History: Sister had breast cancer Social History: Lives in [place] with daughter (she is the caregiver). Denies current tobacco, alcohol and other drug abuse Home Medications: Xifaxan 550 mg tab, Furosemide 40 mg tab, Potassium Cl ER 10 mEq tablet, Propranolol Hydrochloride 10 mg tab, Enulose 10 gm/15 mL john, Verquvo 2.5 mg tab, Tradjenta 5 mg tablets, Folic Acid 1 mg tab, Methotrexate 2.5 mg tablet, Naproxen DR 375 mg tab, Tramadol HCl 50 mg tab, Pregabalin 150 mg cap, Clonidine HCl 0.1 mg/24 hr patch, Pantoprazole Sodium 40 mg tab, Spironolactone 50 mg tab, Albuterol Sulfate HFA 108 mcg/act inhaler, Timolol Maleate 0.5% eye drops, Diclofenac Sodium 1% gel, Lidocaine 5% patch. PCP: Dr Siddiqi Final Inspector: Dr. Weaver Electrical Automation Engineer: Dr Thomson Patient seen and examined bedside. Patient more alert and oriented in compared to admission. Started clear liquid diet. No acute event overnight. 1 unit of platelet transfusion today. Objective vital signs Vital Sign Date Time Temp Pulse Resp B/P (MAP) Pulse Ox O2 Delivery O2 Flow Rate FiO2 03/12/25 21:00 97.3 78 18 152/82 (105) 99 97.3 03/12/25 07:31 Nasal Cannula* 2 28 Total Intake and Output 03/11/25 03/11/25 03/12/25 15:00 23:00 07:00 Intake Total 650.8 ml Output Total 200 ml Balance 650.8 ml -200 ml medications Current Medications Medications Dose Ordered Sig/Vickie Route Start Time Stop Time Status Last Admin Dose Admin Diagnostic Test (Pha) 1 strip Q6HR 03/08/25 06:00 03/12/25 17:35 1 STRIP Insulin Human Regular Q6HR SC 03/08/25 06:00 03/12/25 05:58 2 UNITS Dextrose 50 ml UD PRN IV 03/08/25 03:15 Rifaximin 550 mg BID PO 03/08/25 10:00 03/10/25 22:12 550 MG Folic Acid 1 mg DAILY PO 03/08/25 10:00 Hold 03/10/25 09:22 1 MG Pregabalin 50 mg DAILY PO 03/08/25 10:00 03/11/25 10:36 50 MG Pantoprazole Sodium 40 mg BID IV 03/08/25 05:45 03/12/25 21:20 40 MG Lactulose 15 ml DAILY PO 03/09/25 10:00 03/11/25 10:36 15 ML Vancomycin HCl 0 ml @ 0 mls/hr UD IV 03/08/25 06:30 Meropenem 50 ml @ 17 mls/hr Q12HR IV 03/08/25 22:00 03/12/25 21:20 17 MLS/HR Lidocaine HCl 5 ml Q8HPRN PRN TOP 03/09/25 14:45 03/09/25 18:08 5 ML Al Hydrox/Mg Hydrox/Simethicone 5 ml QID MT 03/09/25 18:00 03/12/25 21:20 5 ML Sodium Chloride 1,000 ml @ 100 mls/hr Q10H IV 03/10/25 16:15 03/11/25 22:17 100 MLS/HR Vancomycin HCl 250 ml @ 250 mls/hr Q12H IV 03/11/25 12:00 UNV Vancomycin HCl 100 ml @ 100 mls/hr Q12H IV 03/11/25 13:00 03/12/25 12:43 100 MLS/HR Nystatin 5 ml QID MT 03/11/25 18:00 03/12/25 21:19 5 ML Timolol Maleate 1 drop BID EACHEYE 03/12/25 22:00 03/12/25 21:19 1 DROP Patient Own Medication 1 BIDP PRN EACHEYE 03/12/25 15:00 Patient Own Medication 1 BIDP PRN TOP 03/12/25 15:00 Examination General: Dennison, afebrile, mucosa mild bleeding noted in oral mucosa Cardiovascular: Normal S1 and S2. Systolic ejective mid peaking crescendo decrescendo murmur best heard in aortic foci intensity 3/6. No gallops or rubs Respiratory: Normal ventilation mechanics. Clear lung sounds on auscultation Abdomen: Soft, nontender, no organomegaly, normal bowel sounds : Vaginal and anal clotted blood noted but no active bleeding MSK/skin: Mobilizes 4 limbs. Skin is dry and warm. Chronic metacarpal- phalangeal and PIP deformities of RA Neurological: Oriented in 1 sphere (only person). No motor no sensitive deficits. Pupils are isocoric and reactive laboratory and microbiology Laboratory Tests 03/12/25 08:17 Test 03/12/25 08:17 Range/Units Serum Glucose 124 H 74-106 mg/dL Microbiology Date/Time Source Procedure Growth Status 03/11/25 14:19 Sputum Gram Stain - Final Resulted 03/11/25 14:19 Sputum Respiratory Culture - Preliminary Resulted 03/08/25 05:15 Nose MRSA Screen - Final Complete 03/08/25 04:28 Urine - [place] Urine Culture - Final Complete 03/07/25 22:07 Blood Blood Culture - Preliminary NO GROWTH AFTER 72 HOURS OF INCUBATION. Resulted Problem List/Assessment/Plan Problem List/Assessment/Plan Metabolic encephalopathy secondary to sepsis probably due to UTI Ruled out hepatic encephalopathy Completed head CT which showed no acute intracranial pathology Ordered ammonia level which was mildly elevated (34-16-28). Continue rifaximin and lactulose Mucositis secondary to methotrexate Oral, vaginal and anal mucositis with mild bleeding Last dose of methotrexate was 03/03/2025 Discontinue since admission. The patient has liver cirrhosis, we will not benefit from methotrexate due to hepatic toxicity at this point. Patient versus mucositis associated with vaginal and anal bleeding, probably secondary to methotrexate. Currently on IV folic acid, keep NPO, under broad-spectrum IV antibiotic. Evaluate Clinimix Required Filgastrim fro 48 hours, currently discontinued since neutropenia has resolved. Deescalating antibiotic Septic shock probably secondary to UTI History of multiple UTIs Unlikely spontaneous bacterial peritonitis Currently under empiric IV antibiotic (meropenem, vancomycin, nystatin swish and swallow, previously on micafungin and acyclovir, azithromycin and metronidazole) Obtain liver ultrasound which showed no ascites Required IV fluid resuscitation Required IV vasopressors for less than 48 hours. Off since 03/09/2025 Severe thrombocytopenia Platelet count 15 1 platelet given Diphenhydramine iv. 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 Currently discontinue methotrexate She will be re-evaluated as outpatient Continue rifaximin and lactulose On pantoprazole Completed abdominal ultrasound which evidenced cholelithiasis, no ascites JOE hemodynamically mediated (VMN) Hyperkalemia Hypovolemic Hyponatremia - Resolved Hypernatremia We will monitor creatinine Patient required hyperkalemia treatment On IV fluids. Initially NS, now 1/2 NS due to hypernatremia Started clear liquid diet today and monitor Hernandez catheter in place and clear urine noted Pulmonary fibrosis - no home oxygen requirement Unlikely pneumonia Patient has rheumatoid arthritis treated with methotrexate. Could be probable cause of pulmonary fibrosis Completed chest x-ray which shows questionable atypical pneumonia. Patient has history of pulmonary fibrosis. Currently under empiric IV antibiotic (meropenem, vancomycin, nystatin swish and swallow, previously on micafungin and acyclovir, azithromycin and metronidazole) Chronic systolic congestive heart failure (HFrEF) - no exacerbation No signs of fluid overload at the moment. Had to discontinue most GDM T due to septic shock. Re-initiate once per patient stabilized Pancytopenia - Acute Neurtropenia - Improved Macrocytic anemia Thrombocytopenia probably secondary to liver cirrhosis Probably secondary to methotrexate Presented acute drop in all cell lines. Required Filgastrim for 48 hours, currently discontinued. Rheumatoid arthritis Currently discontinued methotrexate Suggest following up as outpatient. Hypertension Diabetes Currently discontinued antihypertensive medication due to septic shock On insulin sliding scale Gave her advice on healthy lifestyle habits Glaucoma Continue eyedrops (timolol) Gait instability with generalized weakness Physical therapy Fall precaution Goals of care discussions. More than 21 minute spent with patient and family members. Case discussed with Dr. Vines Plan discussed with: Patient, Other (Nurse) My Orders My Orders Orders - MUNGUIA,MOHAMMAD RESIDENT Procedure Category Date Status Time Transfer Orders XFER 03/12/25 Transmitted 08:41 Discontinue Tele RUDY 03/12/25 In Process 08:41 Clear Liq Diet DIET 03/12/25 Transmitted Lunch Pt Request For Service PT 03/12/25 Logged 16:18 Dietary Evaluation Review Comments: Increased protein needs, offer Meliton BID for healing, glucerna 240 ml BID for oral supplement Expected Outcomes/Goals: controlled DM, healed wound, gradual wt loss Date of Service: Mar 12, 2025 Billing Provider: YAJAIRA VINES MD Common Visit Codes: [id number] INP/OBS CARE(HIGH) LIZZ MUNGUIA RESIDENT Mar 12, 2025 21:38 BERNARDO GOODE RESIDENT Mar 14, 2025 10:26 YAJAIRA VINES MD Mar 16, 2025 10:21
[2025-03-13] VITALS (10 sets, daily range): BP systolic 132–153; BP diastolic 50–72; PULSE 54–67; RESP 16–18; TEMP 97–98.5; O2SAT 100
[2025-03-13 06:05] LABS: Nucleated Red Blood Cells % 0.1 %
[2025-03-13 06:07] LABS: Hematocrit 24.3 % (36.0-46.0); Hemoglobin 8.9 g/dL (12.2-16.2); Mean Corpuscular Hemoglobin 37.8 pg (28.0-32.0); Mean Corpuscular Volume 103.2 fL (80.0-100.0)
[2025-03-13 06:11] LABS: Anion Gap 11 (5-15); Carbon Dioxide 26 mmol/L (20-31); Potassium 3.7 mmol/L (3.5-5.1)
[2025-03-13 06:12] LABS: Calcium 8.7 mg/dL (8.7-10.4)
[2025-03-13 06:17] LABS: BUN/Creatinine Ratio 35.7 (10.0-20.0); Blood Urea Nitrogen 20 mg/dL (9-23)
[2025-03-13 06:18] LABS: Magnesium 1.9 mg/dL (1.6-2.6)
[2025-03-13 06:29] LABS: Chloride 118 mmol/L (98-107); Glucose 128 mg/dL (74-106); Sodium 155 mmol/L (136-145)
--- NOTE | 2025-03-13 10:42 | DVHPN2 ---
Progress Note - Dictate Date Seen: Mar 13, 2025 Medical Necessity Reason Pt with a Central, PICC or Fol: No Subjective PT WITH PANCYTOPENIA SEPSIS R/O DIC HYPOTENSION MYELOSUPPRESSION SECONDARY TO SEPSIS MTX NOW WITH ABX USE SEPSIS PMH ; HFrEF DIALTED CM PUL FIBROSIS HX OF CIRRHOSIS CRYPTOGENIC RIGHT SIDED HF FROM PUL FIBROSIS AND HFrEF PORTAL HYPERTENSION RA HTN DIABETES HYPOTHYROIDISM vital signs Vital Sign Date Time Temp Pulse Resp B/P (MAP) Pulse Ox O2 Delivery O2 Flow Rate FiO2 03/13/25 09:00 97.7 62 18 151/68 (95) 100 97.7 03/12/25 20:00 Nasal Cannula* 2 28 Total Intake and Output 03/12/25 03/12/25 03/13/25 15:00 23:00 07:00 Intake Total 150 ml 665 ml 1300 ml Output Total 200 ml Balance 150 ml 465 ml 1300 ml medications Current Medications Medications Dose Ordered Sig/Vickie Route Start Time Stop Time Status Last Admin Dose Admin Diagnostic Test (Pha) 1 strip Q6HR 03/08/25 06:00 03/13/25 05:30 1 STRIP Insulin Human Regular Q6HR SC 03/08/25 06:00 03/13/25 00:11 3 UNITS Dextrose 50 ml UD PRN IV 03/08/25 03:15 Rifaximin 550 mg BID PO 03/08/25 10:00 03/10/25 22:12 550 MG Folic Acid 1 mg DAILY PO 03/08/25 10:00 Hold 03/10/25 09:22 1 MG Pregabalin 50 mg DAILY PO 03/08/25 10:00 03/11/25 10:36 50 MG Pantoprazole Sodium 40 mg BID IV 03/08/25 05:45 03/12/25 21:20 40 MG Lactulose 15 ml DAILY PO 03/09/25 10:00 03/11/25 10:36 15 ML Vancomycin HCl 0 ml @ 0 mls/hr UD IV 03/08/25 06:30 Meropenem 50 ml @ 17 mls/hr Q12HR IV 03/08/25 22:00 03/12/25 21:20 17 MLS/HR Lidocaine HCl 5 ml Q8HPRN PRN TOP 03/09/25 14:45 03/09/25 18:08 5 ML Al Hydrox/Mg Hydrox/Simethicone 5 ml QID MT 03/09/25 18:00 03/13/25 05:30 5 ML Vancomycin HCl 250 ml @ 250 mls/hr Q12H IV 03/11/25 12:00 UNV Vancomycin HCl 100 ml @ 100 mls/hr Q12H IV 03/11/25 13:00 03/13/25 02:32 100 MLS/HR Nystatin 5 ml QID MT 03/11/25 18:00 03/13/25 05:30 5 ML Timolol Maleate 1 drop BID EACHEYE 03/12/25 22:00 03/12/25 21:19 1 DROP Patient Own Medication 1 BIDP PRN EACHEYE 03/12/25 15:00 Patient Own Medication 1 BIDP PRN [facility] 03/12/25 15:00 Dextrose 1,000 ml @ 125 mls/hr Q8H IV 03/13/25 09:30 laboratory and microbiology Laboratory Tests 03/13/25 04:49 Test 03/13/25 04:49 Range/Units Serum Glucose 128 H 74-106 mg/dL Problem List PANCYTOPENIA SEPSIS R/O DIC HYPOTENSION MYELOSUPPRESSION SECONDARY TO SEPSIS MTX NOW WITH ABX USE SEPSIS PMH ; HFrEF DIALTED CM PUL FIBROSIS HX OF CIRRHOSIS CRYPTOGENIC RIGHT SIDED HF FROM PUL FIBROSIS AND HFrEF PORTAL HYPERTENSION RA HTN DIABETES HYPOTHYROIDISM SEVERE VOLUME DEPLETION WITH HYPERNATREMIA Assessment/Plan RECOMMEND CHANGE OF ABX BECAUSE OF MYELOSUPPRESSION DIC SCREEN CHANGE FLUID TO D5 1/2NS STILL WITH VOLUME DEPLETION MYELOSUPPRESSION SECONDARY TO MTX VS MYELOPROLIFERATIVE DISORDER BONE MARROW BX MYELOSUPPRESSION RETIC COUNT IS LOW HAPTOGLOBIN NORMAL/ NO HEMOLYSIS FIBRINOGEN HIGH FSP PENDING PRIMARY BONE MARROW SUPPRESSION Dietary Evaluation Review Comments: Increased protein needs, offer Meliton BID for healing, glucerna 240 ml BID for oral supplement Expected Outcomes/Goals: controlled DM, healed wound, gradual wt loss Plan discussed with: Patient CHRIS QUINTEROS MD Mar 13, 2025 10:42
[2025-03-13] MEDS: POTASSIUM PHOSPHATE 26.4 MEQ in SODIUM CHL 0.9% 100 ML IV ONE (11:51)
[2025-03-13] MEDS: PHYTONADIONE (VIT K)10 MG/ML 1ML VIAL SUBCUT ONE (11:53)
[2025-03-13] MEDS: LIDOCAINE 2%HCL (LOCAL ANESTH.) INJ 10ml MDV ONE (14:12)
[2025-03-13] MEDS: MIDAZOLAM HCL 2MG/2ML 2ml VIAL (1mg/ml) ONE (14:33)
[2025-03-13] MEDS: fentaNYL CITRATE 100 MCG/2 ML VL ONE (14:34)
--- NOTE | 2025-03-13 15:34 | DVH ---
CT PELVIS WO CONTRAST HISTORY: BONE MARROW BIOPSY COMPARISON: None PROCEDURE: Informed consent and time-out was performed before the procedure. Conscious sedation was p erformed by the interventional radiology nurse. The pelvic bone was marked, sterilized, draped, and l ocally anesthetized using approximately 8 ml of 1% lidocaine. Axial CT images were used for localizat ion. A 11 gauge [employer] Bone Biopsy kit was used to take a core biopsy samples/20 mL aspirates. The biopsy needle was then removed. No immediate complications noted. FINDINGS: Axial CT images demonstrates biopsy needle within the left posterior pelvis. IMPRESSION: CT-guided bone marrow aspiration and biopsy of the left posterior pelvis.
--- NOTE | 2025-03-13 15:34 | DVH ---
CT PELVIS WO CONTRAST HISTORY: BONE MARROW BIOPSY COMPARISON: None PROCEDURE: Informed consent and time-out was performed before the procedure. Conscious sedation was p erformed by the interventional radiology nurse. The pelvic bone was marked, sterilized, draped, and l ocally anesthetized using approximately 8 ml of 1% lidocaine. Axial CT images were used for localizat ion. A 11 gauge [employer] Bone Biopsy kit was used to take a core biopsy samples/20 mL aspirates. The biopsy needle was then removed. No immediate complications noted. FINDINGS: Axial CT images demonstrates biopsy needle within the left posterior pelvis. IMPRESSION: CT-guided bone marrow aspiration and biopsy of the left posterior pelvis.
[2025-03-13] MEDS: diphenhdrAMINE HCL 12.5 MG/5 ML UD PO ONE (17:12)
[2025-03-13] MEDS ORDERED: POTASSIUM PHOSPHATE 22 MEQ in SODIUM CHL 0.9% 100 ML IV ONE (17:30)
[2025-03-13] MEDS: D5W 5% 1,000 ML IV SCH (17:59)
--- NOTE | 2025-03-13 18:11 | DVHPNRES ---
Progress Note Date Seen: Mar 13, 2025 Resident Creating Document: LIZZ MUNGUIA RESIDENT Medical Necessity Reason Pt with a Central, PICC or Fol: No Subjective Review of Systems Claudette Guzmán is an 79-year-old woman who presents to the ED via EMS with chief complaint of altered level of consciousness, low grade fever, fatigue and generalized weakness, associated with suprapubic pain. Due to clinical status could not obtain review of systems, obtained past medical history from family who is at bedside. Per daughter she was recently hospitalized due to hyperammonemia in the setting of liver cirrhosis (etiology probably medication) in recently discharged eight days ago. Past Medical History: Hypertension, type 2 diabetes mellitus, HFrEF, liver cirrhosis (etiology probably secondary to medication) with esophageal varices and multiple admissions due to hyperammonemia, gastritis, lung fibrosis, rheumatoid arthritis. Surgical History: EGD with diagnosis of esophageal varices, nose and ear surgery, cataract surgery Family History: Sister had breast cancer Social History: Lives in [place] with daughter (she is the caregiver). Denies current tobacco, alcohol and other drug abuse Home Medications: Xifaxan 550 mg tab, Furosemide 40 mg tab, Potassium Cl ER 10 mEq tablet, Propranolol Hydrochloride 10 mg tab, Enulose 10 gm/15 mL john, Verquvo 2.5 mg tab, Tradjenta 5 mg tablets, Folic Acid 1 mg tab, Methotrexate 2.5 mg tablet, Naproxen DR 375 mg tab, Tramadol HCl 50 mg tab, Pregabalin 150 mg cap, Clonidine HCl 0.1 mg/24 hr patch, Pantoprazole Sodium 40 mg tab, Spironolactone 50 mg tab, Albuterol Sulfate HFA 108 mcg/act inhaler, Timolol Maleate 0.5% eye drops, Diclofenac Sodium 1% gel, Lidocaine 5% patch. PCP: Dr Siddiqi Belt Loop Machine Operator: Dr. Weaver Ophthalmic Lens Inspector: Dr Thomson And seen and evaluated in bedside. Daughter in bedside and explained current management plan (completing bone marrow biopsy). No active bleeding noted on the oral mucosa. 1 unit platelet transfusion today. No acute event overnight. Objective vital signs Vital Sign Date Time Temp Pulse Resp B/P (MAP) Pulse Ox O2 Delivery O2 Flow Rate FiO2 03/13/25 17:53 97.5 54 18 132/50 97.5 03/13/25 09:00 100 03/13/25 08:00 Nasal Cannula* 2 28 Total Intake and Output 03/12/25 03/12/25 03/13/25 15:00 23:00 07:00 Intake Total 150 ml 665 ml 1300 ml Output Total 200 ml Balance 150 ml 465 ml 1300 ml medications Current Medications Medications Dose Ordered Sig/Vickie Route Start Time Stop Time Status Last Admin Dose Admin Diagnostic Test (Pha) 1 strip Q6HR 03/08/25 06:00 03/13/25 12:00 1 STRIP Insulin Human Regular Q6HR SC 03/08/25 06:00 03/13/25 00:11 3 UNITS Dextrose 50 ml UD PRN IV 03/08/25 03:15 Rifaximin 550 mg BID PO 03/08/25 10:00 03/10/25 22:12 550 MG Folic Acid 1 mg DAILY PO 03/08/25 10:00 Hold 03/10/25 09:22 1 MG Pregabalin 50 mg DAILY PO 03/08/25 10:00 03/11/25 10:36 50 MG Pantoprazole Sodium 40 mg BID IV 03/08/25 05:45 03/13/25 10:47 40 MG Lactulose 15 ml DAILY PO 03/09/25 10:00 03/11/25 10:36 15 ML Vancomycin HCl 0 ml @ 0 mls/hr UD IV 03/08/25 06:30 Meropenem 50 ml @ 17 mls/hr Q12HR IV 03/08/25 22:00 03/13/25 10:46 17 MLS/HR Lidocaine HCl 5 ml Q8HPRN PRN TOP 03/09/25 14:45 03/09/25 18:08 5 ML Al Hydrox/Mg Hydrox/Simethicone 5 ml QID MT 03/09/25 18:00 03/13/25 05:30 5 ML Vancomycin HCl 250 ml @ 250 mls/hr Q12H IV 03/11/25 12:00 UNV Vancomycin HCl 100 ml @ 100 mls/hr Q12H IV 03/11/25 13:00 03/13/25 02:32 100 MLS/HR Nystatin 5 ml QID MT 03/11/25 18:00 03/13/25 05:30 5 ML Timolol Maleate 1 drop BID EACHEYE 03/12/25 22:00 03/13/25 11:52 1 DROP Patient Own Medication 1 BIDP PRN EACHEYE 03/12/25 15:00 Patient Own Medication 1 BIDP PRN TOP 03/12/25 15:00 Dextrose 1,000 ml @ 125 mls/hr Q8H IV 03/13/25 09:30 Examination General: Dennison, afebrile, mucosa mild bleeding noted in oral mucosa Cardiovascular: Normal S1 and S2. Systolic ejective mid peaking crescendo decrescendo murmur best heard in aortic foci intensity 3/6. No gallops or rubs Respiratory: Normal ventilation mechanics. Clear lung sounds on auscultation Abdomen: Soft, nontender, no organomegaly, normal bowel sounds : Vaginal and anal clotted blood noted but no active bleeding MSK/skin: Mobilizes 4 limbs. Skin is dry and warm. Chronic metacarpal- phalangeal and PIP deformities of RA Neurological: Oriented in 1 sphere (only person). No motor no sensitive deficits. Pupils are isocoric and reactive laboratory and microbiology Laboratory Tests 03/13/25 04:49 Test 03/13/25 04:49 Range/Units Serum Glucose 128 H 74-106 mg/dL Microbiology Date/Time Source Procedure Growth Status 03/11/25 14:19 Sputum Gram Stain - Final Resulted 03/11/25 14:19 Respiratory Culture - Preliminary Presumptive Kinza albicans Resulted 03/08/25 05:15 Nose MRSA Screen - Final Complete 03/08/25 04:28 Urine - Hernandez [place] Urine Culture - Final Complete 03/07/25 22:07 Blood Blood Culture - Final NO GROWTH AFTER 5 DAYS OF INCUBATION. Complete Problem List/Assessment/Plan Problem List/Assessment/Plan Metabolic encephalopathy secondary to sepsis probably due to UTI Ruled out hepatic encephalopathy Completed head CT which showed no acute intracranial pathology Ordered ammonia level which was mildly elevated (34-16-28). Continue rifaximin and lactulose Mucositis secondary to methotrexate - Improved Oral, vaginal and anal mucositis with mild bleeding Last dose of methotrexate was 03/03/2025 Discontinue since admission. The patient has liver cirrhosis, we will not benefit from methotrexate due to hepatic toxicity at this point. Patient versus mucositis associated with vaginal and anal bleeding, probably secondary to methotrexate. Currently on IV folic acid, full liquid diet , under broad-spectrum IV antibiotic. Evaluate Clinimix Required Filgastrim fro 48 hours, currently discontinued since neutropenia has resolved. Deescalating antibiotic Septic shock probably secondary to UTI History of multiple UTIs Unlikely spontaneous bacterial peritonitis Currently under empiric IV antibiotic (meropenem, vancomycin, nystatin swish and swallow, previously on micafungin and acyclovir, azithromycin and metronidazole) Obtain liver ultrasound which showed no ascites Required IV fluid resuscitation Required IV vasopressors for less than 48 hours. Off since 03/09/2025 Severe thrombocytopenia Pancytopenia - Acute Neurtropenia - Improved Macrocytic anemia Thrombocytopenia probably secondary to liver cirrhosis Probably secondary to methotrexate Presented acute drop in all cell lines. Required Filgastrim for 48 hours, currently discontinued.Platelet count 15>18 Another 1 unit of platelet transfusion today Diphenhydramine iv. as needed CBC monitor Indicated bone marrow biopsy, completed on 03/13/2025 Liver cirrhosis questionably secondary to medication (methotrexate) Esophageal varices - no active bleeding History of hepatic encephalopathy Transaminitis Asymptomatic cholelithiasis Patient continues on methotrexate per library media assistant. Currently discontinue methotrexate She will be re-evaluated as outpatient Continue rifaximin and lactulose On pantoprazole Completed abdominal ultrasound which evidenced cholelithiasis, no ascites JOE hemodynamically mediated (VMN) Hyperkalemia Hypovolemic Hyponatremia - Resolved Hypernatremia We will monitor creatinine Patient required hyperkalemia treatment On IV fluids. D5W due to hypernatremia Started full liquid diet today and monitor, advanced if patient tolerated Hernandez catheter in place and clear urine noted Pulmonary fibrosis - no home oxygen requirement Unlikely pneumonia Patient has rheumatoid arthritis treated with methotrexate. Could be probable cause of pulmonary fibrosis Completed chest x-ray which shows questionable atypical pneumonia. Patient has history of pulmonary fibrosis. Currently under empiric IV antibiotic (meropenem, vancomycin, nystatin swish and swallow, previously on micafungin and acyclovir, azithromycin and metronidazole) Chronic systolic congestive heart failure (HFrEF) - no exacerbation No signs of fluid overload at the moment. Had to discontinue most GDM T due to septic shock. Re-initiate once per patient stabilized Rheumatoid arthritis Currently discontinued methotrexate Suggest following up as outpatient. Hypertension Diabetes Currently discontinued antihypertensive medication due to septic shock On insulin sliding scale Gave her advice on healthy lifestyle habits Glaucoma Continue eyedrops (timolol) Gait instability with generalized weakness Physical therapy Fall precaution Wound consult due to rash on sacral area. Goals of care discussions. More than 19 minute spent with patient and family members. Case discussed with Dr. Vines Plan discussed with: Patient, Daughter, Other (Nurse, daughters) My Orders My Orders Orders - LIZZ MUNGUIA RESIDENT Procedure Category Date Status Time Full Liq Diet DIET 03/13/25 Transmitted Lunch * Wound Consult CONS 03/13/25 Transmitted Potassium Phosphate PHA 03/13/25 Logged 17:30 Dietary Evaluation Review Comments: Increased protein needs, offer Meliton BID for healing, glucerna 240 ml BID for oral supplement Expected Outcomes/Goals: controlled DM, healed wound, gradual wt loss Date of Service: Mar 13, 2025 Billing Provider: YAJAIRA VINES MD Common Visit Codes: [id number] INP/OBS CARE(HIGH) LIZZ MUNGUIA RESIDENT Mar 13, 2025 18:11 BERNARDO GOODE Mar 14, 2025 10:32 YAJAIRA VINES MD Mar 16, 2025 10:30
[2025-03-14 01:00] VITALS: BP 143/44; PULSE 58; RESP 18; TEMP 98.2; O2SAT 100
[2025-03-14 05:00] VITALS: BP 150/45; PULSE 60; RESP 19; TEMP 98.5; O2SAT 100
[2025-03-14 05:55] LABS: Hematocrit 23.1 % (36.0-46.0); Hemoglobin 8.3 g/dL (12.2-16.2); Mean Corpuscular Hemoglobin 36.9 pg (28.0-32.0); Mean Corpuscular Volume 102.8 fL (80.0-100.0)
[2025-03-14 06:04] LABS: Anion Gap 10 (5-15); Carbon Dioxide 26 mmol/L (20-31)
[2025-03-14 06:10] LABS: BUN/Creatinine Ratio 28.6 (10.0-20.0); Blood Urea Nitrogen 14 mg/dL (9-23); Chloride 115 mmol/L (98-107); Glucose 132 mg/dL (74-106); Magnesium 1.8 mg/dL (1.6-2.6); Potassium 3.4 mmol/L (3.5-5.1); Sodium 151 mmol/L (136-145)
[2025-03-14 06:11] LABS: Calcium 8.4 mg/dL (8.7-10.4)
[2025-03-14 06:45] LABS: Total Cells Counted 100.0 (100)
[2025-03-14] MEDS: POTASSIUM CHL 20MEQ/100ML 100 ML IV ONE (06:45)
[2025-03-14] MEDS: POTASSIUM PHOSPHATE 26.4 MEQ in SODIUM CHL 0.9% 100 ML IV ONE ×2 (07:30→21:49)
[2025-03-14 08:00] VITALS: PULSE 60
[2025-03-14 09:17] VITALS: BP 154/57; PULSE 61; RESP 16; TEMP 98.7; O2SAT 100
[2025-03-14] MEDS ORDERED: FILGRASTIM (TBO) 300 MCG/0.5 ML SYRG SC ONE (10:30)
[2025-03-14] MEDS: MAGNESIUM SULFATE 1GM/100ML 100 ML IV SCH (11:48)
--- NOTE | 2025-03-14 12:20 | DVHPNRES ---
Progress Note Date Seen: Mar 14, 2025 Resident Creating Document: LIZZ MUNGUIA RESIDENT Medical Necessity Reason Pt with a Central, PICC or Fol: No Subjective Review of Systems Claudette Guzmán is an 79-year-old woman who presents to the ED via EMS with chief complaint of altered level of consciousness, low grade fever, fatigue and generalized weakness, associated with suprapubic pain. Due to clinical status could not obtain review of systems, obtained past medical history from family who is at bedside. Per daughter she was recently hospitalized due to hyperammonemia in the setting of liver cirrhosis (etiology probably medication) in recently discharged eight days ago. Past Medical History: Hypertension, type 2 diabetes mellitus, HFrEF, liver cirrhosis (etiology probably secondary to medication) with esophageal varices and multiple admissions due to hyperammonemia, gastritis, lung fibrosis, rheumatoid arthritis. Surgical History: EGD with diagnosis of esophageal varices, nose and ear surgery, cataract surgery Family History: Sister had breast cancer Social History: Lives in [place] with daughter (she is the caregiver). Denies current tobacco, alcohol and other drug abuse Home Medications: Xifaxan 550 mg tab, Furosemide 40 mg tab, Potassium Cl ER 10 mEq tablet, Propranolol Hydrochloride 10 mg tab, Enulose 10 gm/15 mL john, Verquvo 2.5 mg tab, Tradjenta 5 mg tablets, Folic Acid 1 mg tab, Methotrexate 2.5 mg tablet, Naproxen DR 375 mg tab, Tramadol HCl 50 mg tab, Pregabalin 150 mg cap, Clonidine HCl 0.1 mg/24 hr patch, Pantoprazole Sodium 40 mg tab, Spironolactone 50 mg tab, Albuterol Sulfate HFA 108 mcg/act inhaler, Timolol Maleate 0.5% eye drops, Diclofenac Sodium 1% gel, Lidocaine 5% patch. PCP: Dr Siddiqi Maintenance Helper: Dr. Weaver Dog Hair Clipper: Dr Thomson And seen and evaluated in bedside. Bone marrow biopsy done yesterday. No acute event overnight. Labs shows severe neutropenia, isolation precaution. C/ Objective vital signs Vital Sign Date Time Temp Pulse Resp B/P (MAP) Pulse Ox O2 Delivery O2 Flow Rate FiO2 03/14/25 09:17 98.7 61 16 154/57 (89) 100 98.7 03/13/25 20:00 Nasal Cannula* 2 28 Total Intake and Output 03/13/25 03/13/25 03/14/25 15:00 23:00 07:00 Intake Total 575 ml 390 ml Output Total 350 ml Balance 575 ml 40 ml medications Current Medications Medications Dose Ordered Sig/Vickie Route Start Time Stop Time Status Last Admin Dose Admin Diagnostic Test (Pha) 1 strip Q6HR 03/08/25 06:00 03/14/25 05:49 1 STRIP Insulin Human Regular Q6HR SC 03/08/25 06:00 03/14/25 05:50 2 UNITS Dextrose 50 ml UD PRN IV 03/08/25 03:15 Rifaximin 550 mg BID PO 03/08/25 10:00 03/14/25 11:16 550 MG Folic Acid 1 mg DAILY PO 03/08/25 10:00 Hold 03/10/25 09:22 1 MG Pregabalin 50 mg DAILY PO 03/08/25 10:00 03/14/25 11:16 50 MG Pantoprazole Sodium 40 mg BID IV 03/08/25 05:45 03/14/25 11:20 40 MG Lactulose 15 ml DAILY PO 03/09/25 10:00 03/14/25 11:18 15 ML Vancomycin HCl 0 ml @ 0 mls/hr UD IV 03/08/25 06:30 Meropenem 50 ml @ 17 mls/hr Q12HR IV 03/08/25 22:00 03/13/25 21:41 17 MLS/HR Lidocaine HCl 5 ml Q8HPRN PRN TOP 03/09/25 14:45 03/09/25 18:08 5 ML Al Hydrox/Mg Hydrox/Simethicone 5 ml QID MT 03/09/25 18:00 03/14/25 05:26 5 ML Vancomycin HCl 250 ml @ 250 mls/hr Q12H IV 03/11/25 12:00 UNV Vancomycin HCl 100 ml @ 100 mls/hr Q12H IV 03/11/25 13:00 03/14/25 00:53 100 MLS/HR Nystatin 5 ml QID MT 03/11/25 18:00 03/14/25 05:25 5 ML Timolol Maleate 1 drop BID EACHEYE 03/12/25 22:00 03/14/25 11:39 1 DROP Patient Own Medication 1 BIDP PRN EACHEYE 03/12/25 15:00 Patient Own Medication 1 BIDP PRN TOP 03/12/25 15:00 Dextrose 1,000 ml @ 125 mls/hr Q8H IV 03/13/25 09:30 03/13/25 17:59 125 MLS/HR Tbo-Filgrastim 300 mcg DAILY SC 03/14/25 11:00 Examination Patient currently lying on bed General: Dennison, afebrile, mucosa mild bleeding noted in oral mucosa Cardiovascular: Normal S1 and S2. Systolic ejective mid peaking crescendo decrescendo murmur best heard in aortic foci intensity 3/6. No gallops or rubs Respiratory: Normal ventilation mechanics. Clear lung sounds on auscultation Abdomen: Soft, nontender, no organomegaly, normal bowel sounds : Vaginal and anal clotted blood noted but no active bleeding MSK/skin: Mobilizes 4 limbs. Skin is dry and warm. Chronic metacarpal- phalangeal and PIP deformities of RA Neurological: Oriented in 1 sphere (only person). No motor no sensitive deficits. Pupils are isocoric and reactive laboratory and microbiology Laboratory Tests 03/14/25 04:41 Test 03/14/25 04:41 Range/Units Serum Glucose 132 H 74-106 mg/dL Microbiology Date/Time Source Procedure Growth Status 03/11/25 14:19 Sputum Gram Stain - Final Complete 03/11/25 14:19 Respiratory Culture - Final Presumptive Kinza albicans Complete 03/08/25 05:15 Nose MRSA Screen - Final Complete 03/08/25 04:28 Urine - Hernandez [place] Urine Culture - Final Complete 03/07/25 22:07 Blood Blood Culture - Final NO GROWTH AFTER 5 DAYS OF INCUBATION. Complete Problem List/Assessment/Plan Problem List/Assessment/Plan Metabolic encephalopathy secondary to sepsis probably due to UTI Ruled out hepatic encephalopathy Completed head CT which showed no acute intracranial pathology Ordered ammonia level which was mildly elevated (34-16-28). Continue rifaximin and lactulose Mucositis secondary to methotrexate - Improved Oral, vaginal and anal mucositis with mild bleeding Last dose of methotrexate was 03/03/2025 Discontinue since admission. The patient has liver cirrhosis, we will not benefit from methotrexate due to hepatic toxicity at this point. Patient versus mucositis associated with vaginal and anal bleeding, probably secondary to methotrexate. Currently on IV folic acid, full liquid diet , under broad-spectrum IV antibiotic. Evaluate Clinimix Required Filgastrim fro 48 hours, currently discontinued since neutropenia has resolved. Filgrastim restarted today because of severe neutropenia Isolation precaution Septic shock probably secondary to UTI History of multiple UTIs Unlikely spontaneous bacterial peritonitis Currently under empiric IV antibiotic (meropenem, vancomycin, nystatin swish and swallow, previously on micafungin and acyclovir, azithromycin and metronidazole) Obtain liver ultrasound which showed no ascites Required IV fluid resuscitation Required IV vasopressors for less than 48 hours. Off since 03/09/2025 Severe thrombocytopenia - status post platelet transfusion Pancytopenia - Acute Neurtropenia - Improved Macrocytic anemia Thrombocytopenia probably secondary to liver cirrhosis Probably secondary to methotrexate Presented acute drop in all cell lines. Required Filgastrim for 48 hours, currently discontinued.Platelet count 15>18>30 S/p 2unit of platelet transfusion . Diphenhydramine iv. as needed CBC monitor Indicated bone marrow biopsy, completed on 03/13/2025 Sputum culture preliminary report showed chlamydia albicans , waiting for final report Liver cirrhosis questionably secondary to medication (methotrexate) Esophageal varices - no active bleeding History of hepatic encephalopathy Transaminitis Asymptomatic cholelithiasis Patient continues on methotrexate per burn out scarfing operator. Currently discontinue methotrexate She will be re-evaluated as outpatient Continue rifaximin and lactulose On pantoprazole Completed abdominal ultrasound which evidenced cholelithiasis, no ascites JOE hemodynamically mediated (VMN) Hyperkalemia Hypovolemic Hyponatremia - Resolved Hypernatremia We will monitor creatinine Patient required hyperkalemia treatment On IV fluids. D5W due to hypernatremia Started full liquid diet today and monitor, advanced if patient tolerated Hernandez catheter in place and clear urine noted Pulmonary fibrosis - no home oxygen requirement Unlikely pneumonia Patient has rheumatoid arthritis treated with methotrexate. Could be probable cause of pulmonary fibrosis Completed chest x-ray which shows questionable atypical pneumonia. Patient has history of pulmonary fibrosis. Currently under empiric IV antibiotic (meropenem, vancomycin, nystatin swish and swallow, previously on micafungin and acyclovir, azithromycin and metronidazole) Chronic systolic congestive heart failure (HFrEF) - no exacerbation No signs of fluid overload at the moment. Had to discontinue most GDM T due to septic shock. Re-initiate once per patient stabilized Rheumatoid arthritis Currently discontinued methotrexate Suggest following up as outpatient. Hypertension Diabetes Currently discontinued antihypertensive medication due to septic shock On insulin sliding scale Gave her advice on healthy lifestyle habits Glaucoma Continue eyedrops (timolol) Gait instability with generalized weakness Physical therapy Fall precaution Wound consult due to rash on sacral area. Goals of care discussions. More than 20 minute spent with patient and family members. Case discussed with Dr. Vines Plan discussed with: Patient, Other (Nurse) My Orders My Orders Orders - LIZZ MUNGUIA Procedure Category Date Status Time * Wound Consult CONS 03/13/25 Transmitted Potassium Phosphate PHA 03/14/25 In Process 07:30 Dietary Evaluation Review Comments: Increased protein needs, offer Meliton BID for healing, glucerna 240 ml BID for oral supplement Expected Outcomes/Goals: controlled DM, healed wound, gradual wt loss Date of Service: Mar 14, 2025 Billing Provider: YAJAIRA VINES MD Common Visit Codes: [id number] INP/OBS CARE(HIGH) LIZZ MUNGUIA RESIDENT Mar 14, 2025 12:20 BERNARDO GOODE RESIDENT Mar 16, 2025 09:45 YAJAIRA VINES MD Mar 16, 2025 10:43
[2025-03-14 12:21] VITALS: BP 141/48; PULSE 61; RESP 16; TEMP 98.2; O2SAT 100
[2025-03-14] MEDS: FILGRASTIM (TBO) 300 MCG/0.5 ML SYRG SC SCH (14:34)
--- NOTE | 2025-03-14 15:27 | DVHPN2 ---
Progress Note - Dictate Date Seen: Mar 14, 2025 Medical Necessity Reason Pt with a Central, PICC or Fol: No Subjective PT WITH PANCYTOPENIA SEPSIS R/O DIC HYPOTENSION MYELOSUPPRESSION SECONDARY TO SEPSIS MTX NOW WITH ABX USE SEPSIS PMH ; HFrEF DIALTED CM PUL FIBROSIS HX OF CIRRHOSIS CRYPTOGENIC RIGHT SIDED HF FROM PUL FIBROSIS AND HFrEF PORTAL HYPERTENSION RA HTN DIABETES HYPOTHYROIDISM vital signs Vital Sign Date Time Temp Pulse Resp B/P (MAP) Pulse Ox O2 Delivery O2 Flow Rate FiO2 03/14/25 12:21 98.2 61 16 141/48 (79) 100 98.2 03/13/25 20:00 Nasal Cannula* 2 28 Total Intake and Output 03/13/25 03/13/25 03/14/25 15:00 23:00 07:00 Intake Total 575 ml 390 ml Output Total 350 ml Balance 575 ml 40 ml medications Current Medications Medications Dose Ordered Sig/Vickie Route Start Time Stop Time Status Last Admin Dose Admin Diagnostic Test (Pha) 1 strip Q6HR 03/08/25 06:00 03/14/25 12:00 1 STRIP Insulin Human Regular Q6HR SC 03/08/25 06:00 03/14/25 14:29 3 UNITS Dextrose 50 ml UD PRN IV 03/08/25 03:15 Rifaximin 550 mg BID PO 03/08/25 10:00 03/14/25 11:16 550 MG Folic Acid 1 mg DAILY PO 03/08/25 10:00 Hold 03/10/25 09:22 1 MG Pregabalin 50 mg DAILY PO 03/08/25 10:00 03/14/25 11:16 50 MG Pantoprazole Sodium 40 mg BID IV 03/08/25 05:45 03/14/25 11:20 40 MG Lactulose 15 ml DAILY PO 03/09/25 10:00 03/14/25 11:18 15 ML Vancomycin HCl 0 ml @ 0 mls/hr UD IV 03/08/25 06:30 Meropenem 50 ml @ 17 mls/hr Q12HR IV 03/08/25 22:00 03/13/25 21:41 17 MLS/HR Lidocaine HCl 5 ml Q8HPRN PRN TOP 03/09/25 14:45 03/09/25 18:08 5 ML Al Hydrox/Mg Hydrox/Simethicone 5 ml QID MT 03/09/25 18:00 03/14/25 12:00 5 ML Vancomycin HCl 250 ml @ 250 mls/hr Q12H IV 03/11/25 12:00 UNV Vancomycin HCl 100 ml @ 100 mls/hr Q12H IV 03/11/25 13:00 03/14/25 00:53 100 MLS/HR Nystatin 5 ml QID MT 03/11/25 18:00 03/14/25 14:20 5 ML Timolol Maleate 1 drop BID EACHEYE 03/12/25 22:00 03/14/25 11:39 1 DROP Patient Own Medication 1 BIDP PRN EACHEYE 03/12/25 15:00 Patient Own Medication 1 BIDP PRN TOP 03/12/25 15:00 Dextrose 1,000 ml @ 125 mls/hr Q8H IV 03/13/25 09:30 03/13/25 17:59 125 MLS/HR Tbo-Filgrastim 300 mcg DAILY SC 03/14/25 11:00 03/14/25 14:34 300 MCG laboratory and microbiology Laboratory Tests 03/14/25 04:41 Test 03/14/25 04:41 Range/Units Serum Glucose 132 H 74-106 mg/dL Problem List PANCYTOPENIA SEPSIS R/O DIC HYPOTENSION MYELOSUPPRESSION SECONDARY TO SEPSIS MTX NOW WITH ABX USE SEPSIS PMH ; HFrEF DIALTED CM PUL FIBROSIS HX OF CIRRHOSIS CRYPTOGENIC RIGHT SIDED HF FROM PUL FIBROSIS AND HFrEF PORTAL HYPERTENSION RA HTN DIABETES HYPOTHYROIDISM SEVERE VOLUME DEPLETION WITH HYPERNATREMIA Assessment/Plan RECOMMEND CHANGE OF ABX BECAUSE OF MYELOSUPPRESSION DIC SCREEN CHANGE FLUID TO D5 1/2NS STILL WITH VOLUME DEPLETION MYELOSUPPRESSION SECONDARY TO MTX VS MYELOPROLIFERATIVE DISORDER BONE MARROW BX MYELOSUPPRESSION RETIC COUNT IS LOW HAPTOGLOBIN NORMAL/ NO HEMOLYSIS FIBRINOGEN HIGH FSP PENDING PRIMARY BONE MARROW SUPPRESSION Dietary Evaluation Review Comments: Increased protein needs, offer Meliton BID for healing, glucerna 240 ml BID for oral supplement Expected Outcomes/Goals: controlled DM, healed wound, gradual wt loss Plan discussed with: Patient Critical Care Time(min): 35 CHRIS QUINTEROS MD Mar 14, 2025 15:27
[2025-03-14 16:00] VITALS: BP 101/56; PULSE 60; RESP 16; TEMP 98; O2SAT 98
[2025-03-14 16:50] LABS: Hematocrit 24.7 % (36.0-46.0); Hemoglobin 8.8 g/dL (12.2-16.2); Mean Corpuscular Hemoglobin 36.9 pg (28.0-32.0); Mean Corpuscular Volume 103.1 fL (80.0-100.0)
[2025-03-14 17:45] LABS: Macrocytosis Slight; Total Cells Counted 100.0 (100)
[2025-03-14 17:46] LABS: Anisocytosis Slight
[2025-03-14] MEDS: POTASSIUM EFFERVESENT TAB 25 MEQ PO ONE (17:46)
[2025-03-15] VITALS (7 sets, daily range): BP systolic 107–136; BP diastolic 48–74; PULSE 59–67; RESP 15–19; TEMP 98.2–99; O2SAT 95–100
[2025-03-15] MEDS ORDERED: FILGRASTIM (TBO) 300 MCG/0.5 ML SYRG SC SCH (10:00)
[2025-03-15 12:14] LABS: Hemoglobin 9.1 g/dL (12.2-16.2)
[2025-03-15 12:16] LABS: Hematocrit 25.0 % (36.0-46.0); Mean Corpuscular Hemoglobin 36.9 pg (28.0-32.0); Mean Corpuscular Volume 101.3 fL (80.0-100.0)
[2025-03-15 13:29] LABS: Total Cells Counted 100.0 (100)
--- NOTE | 2025-03-15 14:52 | DVHPNRES ---
Progress Note Date Seen: Mar 15, 2025 Resident Creating Document: DARREN APPLE RESIDENT Medical Necessity Reason Pt with a Central, PICC or Fol: No The following are medically ne: Hernandez Catheter Subjective Review of Systems Claudette Guzmán is an 79-year-old woman who presents to the ED via EMS with chief complaint of altered level of consciousness, low grade fever, fatigue and generalized weakness, associated with suprapubic pain. Due to clinical status could not obtain review of systems, obtained past medical history from family who is at bedside. Per daughter she was recently hospitalized due to hyperammonemia in the setting of liver cirrhosis (etiology probably medication) in recently discharged eight days ago. Past Medical History: Hypertension, type 2 diabetes mellitus, HFrEF, liver cirrhosis (etiology probably secondary to medication) with esophageal varices and multiple admissions due to hyperammonemia, gastritis, lung fibrosis, rheumatoid arthritis. Surgical History: EGD with diagnosis of esophageal varices, nose and ear surgery, cataract surgery Family History: Sister had breast cancer Social History: Lives in [place] with daughter (she is the caregiver). Denies current tobacco, alcohol and other drug abuse Home Medications: Xifaxan 550 mg tab, Furosemide 40 mg tab, Potassium Cl ER 10 mEq tablet, Propranolol Hydrochloride 10 mg tab, Enulose 10 gm/15 mL john, Verquvo 2.5 mg tab, Tradjenta 5 mg tablets, Folic Acid 1 mg tab, Methotrexate 2.5 mg tablet, Naproxen DR 375 mg tab, Tramadol HCl 50 mg tab, Pregabalin 150 mg cap, Clonidine HCl 0.1 mg/24 hr patch, Pantoprazole Sodium 40 mg tab, Spironolactone 50 mg tab, Albuterol Sulfate HFA 108 mcg/act inhaler, Timolol Maleate 0.5% eye drops, Diclofenac Sodium 1% gel, Lidocaine 5% patch. PCP: Dr Siddiqi Rivet Catcher: Dr. Weaver Securities Consultant: Dr Thomson Patient was seen and examined at bedside today. Overnight events were reviewed. The patient reports complaining of upper abdominal pain, however, eating breakfast improved the pain. Her bowel and bladder movements normal. She denies any chest pain, shortness of breath, abdominal pain or any other complaints today. Objective vital signs Vital Sign Date Time Temp Pulse Resp B/P (MAP) Pulse Ox O2 Delivery O2 Flow Rate FiO2 03/15/25 13:00 99.0 65 19 116/74 (88) 97 99.0 03/15/25 08:00 Nasal Cannula* 2 28 Total Intake and Output 03/14/25 03/14/25 03/15/25 15:00 23:00 07:00 Intake Total 800 ml 150 ml Output Total 250 ml 500 ml Balance 550 ml -350 ml medications Current Medications Medications Dose Ordered Sig/Vickie Route Start Time Stop Time Status Last Admin Dose Admin Diagnostic Test (Pha) 1 strip Q6HR 03/08/25 06:00 03/15/25 12:00 1 STRIP Insulin Human Regular Q6HR SC 03/08/25 06:00 03/15/25 12:00 3 UNITS Dextrose 50 ml UD PRN IV 03/08/25 03:15 Rifaximin 550 mg BID PO 03/08/25 10:00 03/15/25 11:00 550 MG Folic Acid 1 mg DAILY PO 03/08/25 10:00 Hold 03/10/25 09:22 1 MG Pregabalin 50 mg DAILY PO 03/08/25 10:00 03/15/25 11:00 50 MG Pantoprazole Sodium 40 mg BID IV 03/08/25 05:45 03/15/25 10:59 40 MG Lactulose 15 ml DAILY PO 03/09/25 10:00 03/15/25 10:59 15 ML Vancomycin HCl 0 ml @ 0 mls/hr UD IV 03/08/25 06:30 Meropenem 50 ml @ 17 mls/hr Q12HR IV 03/08/25 22:00 03/15/25 11:03 17 MLS/HR Lidocaine HCl 5 ml Q8HPRN PRN TOP 03/09/25 14:45 03/14/25 22:12 5 ML Al Hydrox/Mg Hydrox/Simethicone 5 ml QID MT 03/09/25 18:00 03/15/25 12:00 5 ML Vancomycin HCl 250 ml @ 250 mls/hr Q12H IV 03/11/25 12:00 UNV Vancomycin HCl 100 ml @ 100 mls/hr Q12H IV 03/11/25 13:00 03/15/25 13:04 100 MLS/HR Nystatin 5 ml QID MT 03/11/25 18:00 03/15/25 12:00 5 ML Timolol Maleate 1 drop BID EACHEYE 03/12/25 22:00 03/15/25 10:00 1 DROP Patient Own Medication 1 BIDP PRN EACHEYE 03/12/25 15:00 Patient Own Medication 1 BIDP PRN TOP 03/12/25 15:00 Tbo-Filgrastim 300 mcg DAILY SC 03/14/25 11:00 03/15/25 10:00 300 MCG Examination Patient currently lying on bed General: Dennison, afebrile, mucosa mild bleeding noted in oral mucosa Cardiovascular: Normal S1 and S2. Systolic ejective mid peaking crescendo decrescendo murmur best heard in aortic foci intensity 3/6. No gallops or rubs Respiratory: Normal ventilation mechanics. Clear lung sounds on auscultation Abdomen: Soft, nontender, no organomegaly, normal bowel sounds : Vaginal and anal clotted blood noted but no active bleeding MSK/skin: Mobilizes 4 limbs. Skin is dry and warm. Chronic metacarpal- phalangeal and PIP deformities of RA Neurological: Oriented in 1 sphere (only person). No motor no sensiory deficits. Pupils are isocoric and reactive laboratory and microbiology Laboratory Tests 03/15/25 12:00 03/14/25 04:41 Test 03/14/25 04:41 Range/Units Serum Glucose 132 H 74-106 mg/dL Microbiology Date/Time Source Procedure Growth Status 03/11/25 14:19 Sputum Gram Stain - Final Complete 03/11/25 14:19 Respiratory Culture - Final Presumptive Kinza albicans Complete 03/08/25 05:15 Nose MRSA Screen - Final Complete 03/08/25 04:28 Urine - Hernandez Port Urine Culture - Final Complete 03/07/25 22:07 Blood Blood Culture - Final NO GROWTH AFTER 5 DAYS OF INCUBATION. Complete Problem List/Assessment/Plan Problem List/Assessment/Plan Metabolic encephalopathy secondary to sepsis probably due to UTI Ruled out hepatic encephalopathy Completed head CT which showed no acute intracranial pathology Ordered ammonia level which was mildly elevated (34-16-28). Continue rifaximin and lactulose Mucositis secondary to methotrexate - Improved Oral, vaginal and anal mucositis with mild bleeding Last dose of methotrexate was 03/03/2025 Discontinue since admission. The patient has liver cirrhosis, we will not benefit from methotrexate due to hepatic toxicity at this point. Patient versus mucositis associated with vaginal and anal bleeding, probably secondary to methotrexate. Currently on IV folic acid, full liquid diet , under broad-spectrum IV antibiotic. Evaluate Clinimix Required Filgastrim fro 48 hours, currently discontinued since neutropenia has resolved. Filgrastim restarted today because of severe neutropenia Labs on 03/14/2025: WBC 1.7 Neutrophil 100 [place] 0 Absolute neutrophil count 1700 Isolation precaution Septic shock probably secondary to UTI History of multiple UTIs Unlikely spontaneous bacterial peritonitis Currently under empiric IV antibiotic (meropenem, vancomycin, nystatin swish and swallow, previously on micafungin and acyclovir, azithromycin and metronidazole) Obtain liver ultrasound which showed no ascites Required IV fluid resuscitation Required IV vasopressors for less than 48 hours. Off since 03/09/2025 IV fluid discontinued on 03/15 as patient was tolerating food, resume if necessary Severe thrombocytopenia Pancytopenia - Acute Neurtropenia - Improved Macrocytic anemia Thrombocytopenia probably secondary to liver cirrhosis Probably secondary to methotrexate Presented acute drop in all cell lines. Required Filgastrim for 48 hours, currently discontinued.Platelet count 15>18>30 S/p 2unit of platelet transfusion . Diphenhydramine iv. as needed CBC monitor Indicated bone marrow biopsy, completed on 03/13/2025 Sputum culture preliminary report showed chlamydia albicans , waiting for final report Liver cirrhosis questionably secondary to medication (methotrexate) Esophageal varices - no active bleeding History of hepatic encephalopathy Transaminitis Asymptomatic cholelithiasis Patient continues on methotrexate per news cameraman. Currently discontinue methotrexate She will be re-evaluated as outpatient Continue rifaximin and lactulose On pantoprazole Completed abdominal ultrasound which evidenced cholelithiasis, no ascites JOE hemodynamically mediated (VMN) Hyperkalemia Hypovolemic Hyponatremia - Resolved Hypernatremia We will monitor creatinine Patient required hyperkalemia treatment On IV fluids. D5W due to hypernatremia Started full liquid diet today and monitor, advanced if patient tolerated Hernandez catheter in place and clear urine noted Pulmonary fibrosis - no home oxygen requirement Unlikely pneumonia Patient has rheumatoid arthritis treated with methotrexate. Could be probable cause of pulmonary fibrosis Completed chest x-ray which shows questionable atypical pneumonia. Patient has history of pulmonary fibrosis. Currently under empiric IV antibiotic (meropenem, vancomycin, nystatin swish and swallow, previously on micafungin and acyclovir, azithromycin and metronidazole) Chronic systolic congestive heart failure (HFrEF) - no exacerbation No signs of fluid overload at the moment. Had to discontinue most GDM T due to septic shock. Re-initiate once per patient stabilized Rheumatoid arthritis Currently discontinued methotrexate Suggest following up as outpatient. Hypertension Diabetes Currently discontinued antihypertensive medication due to septic shock On insulin sliding scale Gave her advice on healthy lifestyle habits Glaucoma Continue eyedrops (timolol) Gait instability with generalized weakness Physical therapy Fall precaution Wound consult due to rash on sacral area. Goals of care discussions. More than 20 minute spent with patient and family members. Case discussed with Dr. Norman, Plan discussed with: Patient, Other (Nurse) Plan discussed with: Patient, Other (RN) My Orders My Orders Orders - DARREN APPLE RESIDENT Procedure Category Date Status Time Comprehensive LAB 03/16/25 Verified Metabolic Panel 04:00 Dietary Evaluation Review Comments: Increased protein needs, offer Meliton BID for healing, glucerna 240 ml BID for oral supplement Expected Outcomes/Goals: controlled DM, healed wound, gradual wt loss Date of Service: Mar 15, 2025 Billing Provider: BERT NORMAN MD Common Visit Codes: [id number] INP/OBS CARE(HIGH) DARREN APPLE RESIDENT Mar 15, 2025 14:52 BERT NORMAN MD Mar 24, 2025 19:47
[2025-03-16] VITALS (11 sets, daily range): BP systolic 100–130; BP diastolic 56–76; PULSE 52–87; RESP 15–20; TEMP 97.7–99.2; O2SAT 96–100
[2025-03-16 05:29] LABS: Hematocrit 23.5 % (36.0-46.0); Hemoglobin 8.7 g/dL (12.2-16.2); Mean Corpuscular Hemoglobin 37.4 pg (28.0-32.0); Mean Corpuscular Volume 101.3 fL (80.0-100.0)
[2025-03-16 05:44] LABS: Alanine Aminotransferase 26 U/L (7-40); Anion Gap 5 (5-15); BUN/Creatinine Ratio 15.1 (10.0-20.0); Carbon Dioxide 29 mmol/L (20-31); Potassium 3.9 mmol/L (3.5-5.1); Sodium 142 mmol/L (136-145)
[2025-03-16 05:55] LABS: Albumin 2.3 g/dL (3.2-4.8); Alkaline Phosphatase 123 U/L (46-116); Bilirubin, Total 2.4 mg/dL (0.2-1.0); Blood Urea Nitrogen 8 mg/dL (9-23); Calcium 8.0 mg/dL (8.7-10.4); Chloride 108 mmol/L (98-107); Glucose 110 mg/dL (74-106); Total Protein 4.8 g/dL (5.7-8.2)
[2025-03-16 07:58] LABS: Total Cells Counted 100.0 (100)
[2025-03-16] MEDS: VANCOMYCIN 500mg/100mL 100 ML IV SCH (13:00)
--- NOTE | 2025-03-16 14:17 | DVHPNRES ---
Progress Note Date Seen: Mar 16, 2025 Resident Creating Document: LIZZ MUNGUIA RESIDENT Medical Necessity Reason Pt with a Central, PICC or Fol: No The following are medically ne: Hernandez Catheter Subjective Review of Systems Claudette Guzmán is an 79-year-old woman who presents to the ED via EMS with chief complaint of altered level of consciousness, low grade fever, fatigue and generalized weakness, associated with suprapubic pain. Due to clinical status could not obtain review of systems, obtained past medical history from family who is at bedside. Per daughter she was recently hospitalized due to hyperammonemia in the setting of liver cirrhosis (etiology probably medication) in recently discharged eight days ago. Past Medical History: Hypertension, type 2 diabetes mellitus, HFrEF, liver cirrhosis (etiology probably secondary to medication) with esophageal varices and multiple admissions due to hyperammonemia, gastritis, lung fibrosis, rheumatoid arthritis. Surgical History: EGD with diagnosis of esophageal varices, nose and ear surgery, cataract surgery Family History: Sister had breast cancer Social History: Lives in [place] with daughter (she is the caregiver). Denies current tobacco, alcohol and other drug abuse Home Medications: Xifaxan 550 mg tab, Furosemide 40 mg tab, Potassium Cl ER 10 mEq tablet, Propranolol Hydrochloride 10 mg tab, Enulose 10 gm/15 mL john, Verquvo 2.5 mg tab, Tradjenta 5 mg tablets, Folic Acid 1 mg tab, Methotrexate 2.5 mg tablet, Naproxen DR 375 mg tab, Tramadol HCl 50 mg tab, Pregabalin 150 mg cap, Clonidine HCl 0.1 mg/24 hr patch, Pantoprazole Sodium 40 mg tab, Spironolactone 50 mg tab, Albuterol Sulfate HFA 108 mcg/act inhaler, Timolol Maleate 0.5% eye drops, Diclofenac Sodium 1% gel, Lidocaine 5% patch. PCP: Dr Siddiqi Soccer Commentator: Dr. Weaver Bilingual Administrative Assistant: Dr Thomson Patient seen and evaluated in bedside today. Patient is currently AO x3. No oral mucosa inflammation or bleeding noted. Diet advanced full liquid to mechanical soft. Assist for feeding. 1 unit of platelet transfused overnight due to thrombocytopenia, platelet count 14. Spoke to daughter Magdalena Johnson and discussed management plan, verbally agree. Objective vital signs Vital Sign Date Time Temp Pulse Resp B/P (MAP) Pulse Ox O2 Delivery O2 Flow Rate FiO2 9/14/25 09:00 97.7 52 18 119/62 (81) 100 97.7 03/15/25 20:00 Nasal Cannula* 2 28 Total Intake and Output 03/15/25 03/15/25 03/16/25 15:00 23:00 07:00 Intake Total 150 ml 0 ml 500 ml Output Total 300 ml Balance 150 ml -300 ml 500 ml medications Current Medications Medications Dose Ordered Sig/Vickie Route Start Time Stop Time Status Last Admin Dose Admin Diagnostic Test (Pha) 1 strip Q6HR 03/08/25 06:00 03/16/25 12:00 1 STRIP Insulin Human Regular Q6HR SC 03/08/25 06:00 03/16/25 12:00 3 UNITS Dextrose 50 ml UD PRN IV 03/08/25 03:15 Rifaximin 550 mg BID PO 03/08/25 10:00 03/16/25 10:22 550 MG Folic Acid 1 mg DAILY PO 03/08/25 10:00 Hold 03/10/25 09:22 1 MG Pregabalin 50 mg DAILY PO 03/08/25 10:00 03/16/25 10:23 50 MG Pantoprazole Sodium 40 mg BID IV 03/08/25 05:45 03/16/25 10:27 40 MG Lactulose 15 ml DAILY PO 03/09/25 10:00 03/16/25 10:27 15 ML Vancomycin HCl 0 ml @ 0 mls/hr UD IV 03/08/25 06:30 Meropenem 50 ml @ 17 mls/hr Q12HR IV 03/08/25 22:00 03/16/25 10:24 17 MLS/HR Lidocaine HCl 5 ml Q8HPRN PRN TOP 03/09/25 14:45 03/14/25 22:12 5 ML Al Hydrox/Mg Hydrox/Simethicone 5 ml QID MT 03/09/25 18:00 03/16/25 12:00 5 ML Vancomycin HCl 250 ml @ 250 mls/hr Q12H IV 03/11/25 12:00 UNV Nystatin 5 ml QID MT 03/11/25 18:00 03/16/25 12:00 5 ML Timolol Maleate 1 drop BID EACHEYE 03/12/25 22:00 03/16/25 10:28 1 DROP Patient Own Medication 1 BIDP PRN EACHEYE 03/12/25 15:00 Patient Own Medication 1 BIDP PRN TOP 03/12/25 15:00 Tbo-Filgrastim 300 mcg DAILY SC 03/14/25 11:00 03/16/25 10:27 300 MCG Vancomycin HCl 100 ml @ 200 mls/hr Q12H IV 03/16/25 13:00 Examination Patient currently lying on bed General: [place]enn[place], afebrile, mucosa no inflammation or bleeding noted in oral mucosa Cardiovascular: Normal S1 and S2. Systolic ejective mid peaking crescendo decrescendo murmur best heard in aortic foci intensity 3/6. No gallops or rubs Respiratory: Normal ventilation mechanics. Clear lung sounds on auscultation Abdomen: Soft, nontender, no organomegaly, normal bowel sounds : Vaginal and anal no active bleeding MSK/skin: Mobilizes 4 limbs. Skin is dry and warm. Chronic metacarpal- phalangeal and PIP deformities of RA Neurological: Oriented in 1 sphere (only person). No motor no sensiory deficits. Pupils are isocoric and reactive laboratory and microbiology Laboratory Tests 03/16/25 04:30 Test 03/16/25 04:30 Range/Units Serum Glucose 110 H 74-106 mg/dL Microbiology Date/Time Source Procedure Growth Status 03/11/25 14:19 Sputum Gram Stain - Final Complete 03/11/25 14:19 Respiratory Culture - Final Presumptive Kinza albicans Complete 03/08/25 05:15 Nose MRSA Screen - Final Complete 03/08/25 04:28 Urine - Hernandez Port Urine Culture - Final Complete 03/07/25 22:07 Blood Blood Culture - Final NO GROWTH AFTER 5 DAYS OF INCUBATION. Complete Problem List/Assessment/Plan Problem List/Assessment/Plan Metabolic encephalopathy secondary to sepsis probably due to UTI Ruled out hepatic encephalopathy Completed head CT which showed no acute intracranial pathology Ordered ammonia level which was mildly elevated (34-16-28). Continue rifaximin and lactulose Mucositis secondary to methotrexate - Improved Oral, vaginal and anal mucositis with mild bleeding Last dose of methotrexate was 03/03/2025 Discontinue since admission. The patient has liver cirrhosis, we will not benefit from methotrexate due to hepatic toxicity at this point. Patient versus mucositis associated with vaginal and anal bleeding, probably secondary to methotrexate. Currently on IV folic acid, full liquid diet , under broad-spectrum IV antibiotic. Evaluate Clinimix Required Filgastrim fro 48 hours, currently discontinued since neutropenia has resolved. Filgrastim restarted because of severe neutropenia ANC 1700 on 03/14/2025 Absolute 220 on 03/16/2020 Isolation precaution Septic shock probably secondary to UTI History of multiple UTIs Unlikely spontaneous bacterial peritonitis Currently under empiric IV antibiotic (meropenem, nystatin swish and swallow, previously on micafungin and acyclovir, vancomycin,, azithromycin and metronidazole) Obtain liver ultrasound which showed no ascites Required IV fluid resuscitation Required IV vasopressors for less than 48 hours. Off since 03/09/2025 IV fluid discontinued on 03/15 as patient was tolerating food, resume if necessary Severe thrombocytopenia Pancytopenia - Acute Neurtropenia - Improved Macrocytic anemia Thrombocytopenia probably secondary to liver cirrhosis Probably secondary to methotrexate Presented acute drop in all cell lines. Required Filgastrim for 48 hours, currently discontinued.Platelet count 15>18>30>18 S/p 3unit of platelet transfusion . Diphenhydramine iv. as needed CBC monitor Indicated bone marrow biopsy, completed on 03/13/2025 Sputum culture preliminary report showed chlamydia albicans , waiting for final report Liver cirrhosis questionably secondary to medication (methotrexate) Esophageal varices - no active bleeding History of hepatic encephalopathy Transaminitis Asymptomatic cholelithiasis Patient continues on methotrexate per a r collections rep. Currently discontinue methotrexate She will be re-evaluated as outpatient Continue rifaximin and lactulose On pantoprazole Completed abdominal ultrasound which evidenced cholelithiasis, no ascites JOE hemodynamically mediated (VMN) Hyponatremia-resolved Hyperkalemia Hypovolemic Hyponatremia - Resolved Hypernatremia We will monitor creatinine Patient required hyperkalemia treatment Started mechanical soft diet today and monitor. Hernandez catheter in place and clear urine noted Pulmonary fibrosis - no home oxygen requirement Unlikely pneumonia Patient has rheumatoid arthritis treated with methotrexate. Could be probable cause of pulmonary fibrosis Completed chest x-ray which shows questionable atypical pneumonia. Patient has history of pulmonary fibrosis. Currently under empiric IV antibiotic (meropenem, vancomycin, nystatin swish and swallow, previously on micafungin and acyclovir, azithromycin and metronidazole) Chronic systolic congestive heart failure (HFrEF) - no exacerbation No signs of fluid overload at the moment. Had to discontinue most GDM T due to septic shock. Re-initiate once per patient stabilized Rheumatoid arthritis Currently discontinued methotrexate Suggest following up as outpatient. Hypertension Diabetes Currently discontinued antihypertensive medication due to septic shock On insulin sliding scale Gave her advice on healthy lifestyle habits Glaucoma Continue eyedrops (timolol) Gait instability with generalized weakness Physical therapy Fall precaution Wound consult due to rash on sacral area. Goals of care discussions. More than 19 minute spent with patient . Case discussed with Dr. Norman, Plan discussed with: Patient, Other (Nurse) My Orders My Orders Orders - LIZZ MUNGUIA Procedure Category Date Status Time Mechanical Soft Diet DIET 03/16/25 Transmitted Lunch Communication Order ORDERS 03/16/25 Transmitted 11:06 Dietary Evaluation Review Comments: Increased protein needs, offer Meliton BID for healing, glucerna 240 ml BID for oral supplement Expected Outcomes/Goals: controlled DM, healed wound, gradual wt loss Date of Service: Mar 16, 2025 Billing Provider: BERT NORMAN MD Common Visit Codes: [id number] INP/OBS CARE(HIGH) LIZZ MUNGUIA Mar 16, 2025 14:17 BERT NORMAN MD Mar 24, 2025 19:48
[2025-03-16] MEDS: DICLOFENAC 1% TOP PRN (19:04)
[2025-03-16] MEDS: VANCOMYCIN 500mg/100mL 100 ML IV ONE (23:45)
[2025-03-17] VITALS (7 sets, daily range): BP systolic 105–121; BP diastolic 50–69; PULSE 65–73; RESP 16–18; TEMP 98.1–99.6; O2SAT 93–100
[2025-03-17 06:11] LABS: Anion Gap 6 (5-15); Carbon Dioxide 28 mmol/L (20-31); Chloride 107 mmol/L (98-107); Potassium 4.0 mmol/L (3.5-5.1); Sodium 141 mmol/L (136-145)
[2025-03-17 06:14] LABS: Calcium 7.8 mg/dL (8.7-10.4)
[2025-03-17 06:17] LABS: BUN/Creatinine Ratio 14.8 (10.0-20.0)
[2025-03-17 06:18] LABS: Blood Urea Nitrogen 8 mg/dL (9-23)
[2025-03-17 06:28] LABS: Hematocrit 22.6 % (36.0-46.0); Hemoglobin 8.1 g/dL (12.2-16.2); Mean Corpuscular Hemoglobin 36.2 pg (28.0-32.0); Mean Corpuscular Volume 101.5 fL (80.0-100.0)
[2025-03-17 06:51] LABS: Glucose 111 mg/dL (74-106)
[2025-03-17 07:05] LABS: Total Cells Counted 100.0 (100)
--- NOTE | 2025-03-17 13:53 | DVHPN2 ---
Progress Note - Dictate Date Seen: Mar 15, 2025 Medical Necessity Reason Pt with a Central, PICC or Fol: No The following are medically ne: Hernandez Catheter Subjective PT WITH PANCYTOPENIA SEPSIS R/O DIC HYPOTENSION MYELOSUPPRESSION SECONDARY TO SEPSIS MTX NOW WITH ABX USE SEPSIS PMH ; HFrEF DIALTED CM PUL FIBROSIS HX OF CIRRHOSIS CRYPTOGENIC RIGHT SIDED HF FROM PUL FIBROSIS AND HFrEF PORTAL HYPERTENSION RA HTN DIABETES HYPOTHYROIDISM vital signs Vital Sign Date Time Temp Pulse Resp B/P (MAP) Pulse Ox O2 Delivery O2 Flow Rate FiO2 03/17/25 13:42 98.3 70 18 110/50 (70) 97 98.3 03/17/25 08:00 Nasal Cannula* 2 28 Total Intake and Output 03/16/25 03/16/25 03/17/25 15:00 23:00 07:00 Intake Total 50 ml 764 ml 630 ml Output Total 550 ml Balance 50 ml 764 ml 80 ml medications Current Medications Medications Dose Ordered Sig/Vickie Route Start Time Stop Time Status Last Admin Dose Admin Diagnostic Test (Pha) 1 strip Q6HR 03/08/25 06:00 03/17/25 12:00 1 STRIP Insulin Human Regular Q6HR SC 03/08/25 06:00 03/17/25 00:23 2 UNITS Dextrose 50 ml UD PRN IV 03/08/25 03:15 Rifaximin 550 mg BID PO 03/08/25 10:00 03/17/25 12:53 550 MG Folic Acid 1 mg DAILY PO 03/08/25 10:00 Hold 03/10/25 09:22 1 MG Pregabalin 50 mg DAILY PO 03/08/25 10:00 03/17/25 11:53 50 MG Pantoprazole Sodium 40 mg BID IV 03/08/25 05:45 03/17/25 11:52 40 MG Lactulose 15 ml DAILY PO 03/09/25 10:00 03/17/25 11:52 15 ML Vancomycin HCl 0 ml @ 0 mls/hr UD IV 03/08/25 06:30 Meropenem 50 ml @ 17 mls/hr Q12HR IV 03/08/25 22:00 03/17/25 11:52 17 MLS/HR Lidocaine HCl 5 ml Q8HPRN PRN TOP 03/09/25 14:45 03/14/25 22:12 5 ML Al Hydrox/Mg Hydrox/Simethicone 5 ml QID MT 03/09/25 18:00 03/17/25 05:34 5 ML Vancomycin HCl 250 ml @ 250 mls/hr Q12H IV 03/11/25 12:00 UNV Nystatin 5 ml QID MT 03/11/25 18:00 03/17/25 13:02 5 ML Timolol Maleate 1 drop BID EACHEYE 03/12/25 22:00 03/17/25 12:53 1 DROP Patient Own Medication 1 BIDP PRN EACHEYE 03/12/25 15:00 Patient Own Medication 1 BIDP PRN [facility] 03/12/25 15:00 03/16/25 19:04 1 Tbo-Filgrastim 300 mcg DAILY SC 03/14/25 11:00 03/17/25 12:52 300 MCG Vancomycin HCl 100 ml @ 200 mls/hr Q12H IV 03/16/25 13:00 03/17/25 00:32 200 MLS/HR laboratory and microbiology Laboratory Tests 03/17/25 05:31 Test 03/17/25 05:31 Range/Units Serum Glucose 111 H 74-106 mg/dL Problem List PANCYTOPENIA SEPSIS R/O DIC HYPOTENSION MYELOSUPPRESSION SECONDARY TO SEPSIS MTX NOW WITH ABX USE SEPSIS PMH ; HFrEF DIALTED CM PUL FIBROSIS HX OF CIRRHOSIS CRYPTOGENIC RIGHT SIDED HF FROM PUL FIBROSIS AND HFrEF PORTAL HYPERTENSION RA HTN DIABETES HYPOTHYROIDISM SEVERE VOLUME DEPLETION WITH HYPERNATREMIA Assessment/Plan RECOMMEND CHANGE OF ABX BECAUSE OF MYELOSUPPRESSION DIC SCREEN CHANGE FLUID TO D5 1/2NS STILL WITH VOLUME DEPLETION MYELOSUPPRESSION SECONDARY TO MTX VS MYELOPROLIFERATIVE DISORDER BONE MARROW BX MYELOSUPPRESSION RETIC COUNT IS LOW HAPTOGLOBIN NORMAL/ NO HEMOLYSIS FIBRINOGEN HIGH FSP PENDING PRIMARY BONE MARROW SUPPRESSION Dietary Evaluation Review Comments: Increased protein needs, offer Meliton BID for healing, glucerna 240 ml BID for oral supplement Expected Outcomes/Goals: controlled DM, healed wound, gradual wt loss Plan discussed with: Patient CHRIS QUINTEROS MD Mar 17, 2025 13:53
--- NOTE | 2025-03-17 19:52 | DVHPNRES ---
Progress Note Date Seen: Mar 17, 2025 Resident Creating Document: LIZZ MUNGUIA RESIDENT Medical Necessity Reason Pt with a Central, PICC or Fol: No The following are medically ne: Hernadnez Catheter Subjective Review of Systems Claudette Guzmán is an 79-year-old woman who presents to the ED via EMS with chief complaint of altered level of consciousness, low grade fever, fatigue and generalized weakness, associated with suprapubic pain. Due to clinical status could not obtain review of systems, obtained past medical history from family who is at bedside. Per daughter she was recently hospitalized due to hyperammonemia in the setting of liver cirrhosis (etiology probably medication) in recently discharged eight days ago. Past Medical History: Hypertension, type 2 diabetes mellitus, HFrEF, liver cirrhosis (etiology probably secondary to medication) with esophageal varices and multiple admissions due to hyperammonemia, gastritis, lung fibrosis, rheumatoid arthritis. Surgical History: EGD with diagnosis of esophageal varices, nose and ear surgery, cataract surgery Family History: Sister had breast cancer Social History: Lives in [place] with daughter (she is the caregiver). Denies current tobacco, alcohol and other drug abuse Home Medications: Xifaxan 550 mg tab, Furosemide 40 mg tab, Potassium Cl ER 10 mEq tablet, Propranolol Hydrochloride 10 mg tab, Enulose 10 gm/15 mL john, Verquvo 2.5 mg tab, Tradjenta 5 mg tablets, Folic Acid 1 mg tab, Methotrexate 2.5 mg tablet, Naproxen DR 375 mg tab, Tramadol HCl 50 mg tab, Pregabalin 150 mg cap, Clonidine HCl 0.1 mg/24 hr patch, Pantoprazole Sodium 40 mg tab, Spironolactone 50 mg tab, Albuterol Sulfate HFA 108 mcg/act inhaler, Timolol Maleate 0.5% eye drops, Diclofenac Sodium 1% gel, Lidocaine 5% patch. PCP: Dr Siddiqi Crosscutter: Dr. Weaver Soda Room Operator: Dr Thomson Patient seen and evaluated bedside today. Oral mucosa moist and no signs symptoms of inflammation or bleeding. No mucositis noted on vaginal mucosa. Patient more alert and oriented. Daughters in bedside and discuss current management plan. Objective vital signs Vital Sign Date Time Temp Pulse Resp B/P (MAP) Pulse Ox O2 Delivery O2 Flow Rate FiO2 03/17/25 17:19 98.3 65 18 112/69 (83) 93 98.3 03/17/25 08:00 Nasal Cannula* 2 28 Total Intake and Output 03/16/25 03/16/25 03/17/25 15:00 23:00 07:00 Intake Total 50 ml 764 ml 630 ml Output Total 550 ml Balance 50 ml 764 ml 80 ml medications Current Medications Medications Dose Ordered Sig/Vickie Route Start Time Stop Time Status Last Admin Dose Admin Diagnostic Test (Pha) 1 strip Q6HR 03/08/25 06:00 03/17/25 18:24 1 STRIP Insulin Human Regular Q6HR SC 03/08/25 06:00 03/17/25 18:24 2 UNITS Dextrose 50 ml UD PRN IV 03/08/25 03:15 Rifaximin 550 mg BID PO 03/08/25 10:00 03/17/25 12:53 550 MG Folic Acid 1 mg DAILY PO 03/08/25 10:00 Hold 03/10/25 09:22 1 MG Pregabalin 50 mg DAILY PO 03/08/25 10:00 03/17/25 11:53 50 MG Pantoprazole Sodium 40 mg BID IV 03/08/25 05:45 03/17/25 11:52 40 MG Lactulose 15 ml DAILY PO 03/09/25 10:00 03/17/25 11:52 15 ML Vancomycin HCl 0 ml @ 0 mls/hr UD IV 03/08/25 06:30 Meropenem 50 ml @ 17 mls/hr Q12HR IV 03/08/25 22:00 03/17/25 11:52 17 MLS/HR Lidocaine HCl 5 ml Q8HPRN PRN TOP 03/09/25 14:45 03/14/25 22:12 5 ML Al Hydrox/Mg Hydrox/Simethicone 5 ml QID MT 03/09/25 18:00 03/17/25 18:21 5 ML Vancomycin HCl 250 ml @ 250 mls/hr Q12H IV 03/11/25 12:00 UNV Nystatin 5 ml QID MT 03/11/25 18:00 03/17/25 13:02 5 ML Timolol Maleate 1 drop BID EACHEYE 03/12/25 22:00 03/17/25 12:53 1 DROP Patient Own Medication 1 BIDP PRN EACHEYE 03/12/25 15:00 Patient Own Medication 1 BIDP PRN TOP 03/12/25 15:00 03/16/25 19:04 1 Tbo-Filgrastim 300 mcg DAILY SC 03/14/25 11:00 03/17/25 12:52 300 MCG Examination Patient currently lying on bed General: [place], afebrile Cardiovascular: Normal S1 and S2. Systolic ejective mid peaking crescendo decrescendo murmur best heard in aortic foci intensity 3/6. No gallops or rubs Respiratory: Normal ventilation mechanics. Clear lung sounds on auscultation Abdomen: Soft, nontender, no organomegaly, normal bowel sounds : Vaginal and anal no active bleeding MSK/skin: Mobilizes 4 limbs. Skin is dry and warm. Chronic metacarpal- phalangeal and PIP deformities of RA Neurological: Patient alert oriented x3 laboratory and microbiology Laboratory Tests 03/17/25 05:31 Test 03/17/25 05:31 Range/Units Serum Glucose 111 H 74-106 mg/dL Microbiology Date/Time Source Procedure Growth Status 03/11/25 14:19 Sputum Gram Stain - Final Complete 03/11/25 14:19 Respiratory Culture - Final Presumptive Kinza albicans Complete 03/08/25 05:15 Nose MRSA Screen - Final Complete 03/08/25 04:28 Urine - Hernandez [place] Urine Culture - Final Complete 03/07/25 22:07 Blood Blood Culture - Final NO GROWTH AFTER 5 DAYS OF INCUBATION. Complete Problem List/Assessment/Plan Problem List/Assessment/Plan Metabolic encephalopathy secondary to sepsis probably due to UTI Ruled out hepatic encephalopathy Completed head CT which showed no acute intracranial pathology Ordered ammonia level which was mildly elevated (34-16-28). Continue rifaximin and lactulose Mucositis secondary to methotrexate - Improved Oral, vaginal and anal mucositis with mild bleeding Last dose of methotrexate was 03/03/2025 Discontinue since admission. The patient has liver cirrhosis, we will not benefit from methotrexate due to hepatic toxicity at this point. Patient versus mucositis associated with vaginal and anal bleeding, probably secondary to methotrexate. Currently on IV folic acid, full liquid diet , under broad-spectrum IV antibiotic. Evaluate Clinimix Required Filgastrim for 48 hours, discontinued since neutropenia has resolved. Filgrastim restarted because of severe neutropenia ANC 1700 on 03/14/2025 Absolute 220 on 03/16/2020 And see count improving Isolation precaution Septic shock probably secondary to UTI History of multiple UTIs Unlikely spontaneous bacterial peritonitis All antibiotic discontinued on 03/17/2025 S/P meropenem, nystatin swish and swallow, previously on micafungin and acyclovir, vancomycin,, azithromycin and metronidazole. Obtain liver ultrasound which showed no ascites Required IV fluid resuscitation Required IV vasopressors for less than 48 hours. Off since 03/09/2025 IV fluid discontinued on 03/15 as patient was tolerating food, resume if necessary Severe thrombocytopenia Pancytopenia - Acute Neurtropenia - Improved Macrocytic anemia Thrombocytopenia probably secondary to liver cirrhosis Probably secondary to methotrexate Presented acute drop in all cell lines. .Platelet count 15>18>30 Total S/p 3unit of platelet transfusion . Diphenhydramine iv. 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 Currently discontinue methotrexate She will be re-evaluated as outpatient Continue rifaximin and lactulose On pantoprazole Completed abdominal ultrasound which evidenced cholelithiasis, no ascites JOE hemodynamically mediated (VMN) Hyponatremia-resolved Hyperkalemia Hypovolemic Hyponatremia - Resolved Hypernatremia We will monitor creatinine Patient required hyperkalemia treatment Started mechanical soft diet Hernandez catheter in place and clear urine noted Pulmonary fibrosis - no home oxygen requirement Unlikely pneumonia Patient has rheumatoid arthritis treated with methotrexate. Could be probable cause of pulmonary fibrosis Completed chest x-ray which shows questionable atypical pneumonia. Patient has history of pulmonary fibrosis. Currently under empiric IV antibiotic (meropenem, vancomycin, nystatin swish and swallow, previously on micafungin and acyclovir, azithromycin and metronidazole) Chronic systolic congestive heart failure (HFrEF) - no exacerbation No signs of fluid overload at the moment. Had to discontinue most GDM T due to septic shock. Re-initiate once per patient stabilized Rheumatoid arthritis Currently discontinued methotrexate Suggest following up as outpatient. Hypertension Diabetes Currently discontinued antihypertensive medication due to septic shock On insulin sliding scale Gave her advice on healthy lifestyle habits Glaucoma Continue eyedrops (timolol) Gait instability with generalized weakness Physical therapy Fall precaution Wound consult due to rash on sacral area. Goals of care discussions. More than 22 minute spent with patient . Case discussed with Dr. Vines Plan discussed with: Daughter, Other (Nurse) Dietary Evaluation Review Comments: Increased protein needs, offer Meliton BID for healing, glucerna 240 ml BID for oral supplement Expected Outcomes/Goals: controlled DM, healed wound, gradual wt loss Date of Service: Mar 17, 2025 Billing Provider: YAJAIRA VINES MD Common Visit Codes: [id number] INP/OBS CARE(HIGH) LIZZ MUNGUIA RESIDENT Mar 17, 2025 19:52 YAJAIRA VINES MD Mar 17, 2025 21:59
[2025-03-18 01:07] VITALS: BP 109/66; PULSE 69; RESP 16; TEMP 97.9; O2SAT 94
[2025-03-18 05:02] VITALS: BP 112/46; PULSE 71; RESP 17; TEMP 97.8; O2SAT 90
[2025-03-18 07:30] LABS: Hematocrit 24.0 % (36.0-46.0); Hemoglobin 8.7 g/dL (12.2-16.2); Mean Corpuscular Hemoglobin 36.8 pg (28.0-32.0); Mean Corpuscular Volume 101.9 fL (80.0-100.0)
[2025-03-18 07:32] LABS: Anion Gap 8 (5-15); Carbon Dioxide 28 mmol/L (20-31); Chloride 106 mmol/L (98-107); Potassium 3.9 mmol/L (3.5-5.1); Sodium 142 mmol/L (136-145)
[2025-03-18 07:38] LABS: BUN/Creatinine Ratio 16.7 (10.0-20.0); Blood Urea Nitrogen 9 mg/dL (9-23); Glucose 90 mg/dL (74-106)
[2025-03-18 07:39] LABS: Calcium 8.0 mg/dL (8.7-10.4)
[2025-03-18 08:42] LABS: Total Cells Counted 100.0 (100)
[2025-03-18 08:43] LABS: Macrocytosis Slight
[2025-03-18 09:00] VITALS: BP 109/54; PULSE 72; RESP 16; TEMP 98.2; O2SAT 92
[2025-03-18] MEDS ORDERED: TIMO0.5S32 EACHEYE (09:59)
[2025-03-18] MEDS ORDERED: LACT10SO3 PO (09:59)
[2025-03-18] MEDS ORDERED: NYS5LQ MT (09:59)
[2025-03-18] MEDS ORDERED: MAGIC MT (09:59)
[2025-03-18] MEDS ORDERED: PANT40T PO (09:59)
[2025-03-18 12:55] VITALS: BP 112/61; PULSE 67; RESP 18; TEMP 98.4; O2SAT 93
--- NOTE | 2025-03-18 13:47 | DVHPN2 ---
Progress Note - Dictate Date Seen: Mar 17, 2025 Medical Necessity Reason Pt with a Central, PICC or Fol: No The following are medically ne: Hernandez Catheter Subjective PT WITH PANCYTOPENIA SEPSIS R/O DIC HYPOTENSION MYELOSUPPRESSION SECONDARY TO SEPSIS MTX NOW WITH ABX USE SEPSIS PMH ; HFrEF DIALTED CM PUL FIBROSIS HX OF CIRRHOSIS CRYPTOGENIC RIGHT SIDED HF FROM PUL FIBROSIS AND HFrEF PORTAL HYPERTENSION RA HTN DIABETES HYPOTHYROIDISM vital signs Vital Sign Date Time Temp Pulse Resp B/P (MAP) Pulse Ox O2 Delivery O2 Flow Rate FiO2 03/18/25 12:55 98.4 67 18 112/61 (78) 93 98.4 03/18/25 08:01 Nasal Cannula* 1 24 Total Intake and Output 03/17/25 03/17/25 03/18/25 15:00 23:00 07:00 Intake Total 150 ml 500 ml 1500 ml Output Total 300 ml Balance 150 ml 200 ml 1500 ml medications Current Medications Medications Dose Ordered Sig/Vickie Route Start Time Stop Time Status Last Admin Dose Admin Diagnostic Test (Pha) 1 strip Q6HR 03/08/25 06:00 03/18/25 12:00 1 STRIP Insulin Human Regular Q6HR SC 03/08/25 06:00 03/18/25 12:53 3 UNITS Dextrose 50 ml UD PRN IV 03/08/25 03:15 Rifaximin 550 mg BID PO 03/08/25 10:00 03/18/25 11:14 550 MG Folic Acid 1 mg DAILY PO 03/08/25 10:00 Hold 03/10/25 09:22 1 MG Pregabalin 50 mg DAILY PO 03/08/25 10:00 03/18/25 11:12 50 MG Pantoprazole Sodium 40 mg BID IV 03/08/25 05:45 03/17/25 22:12 40 MG Lactulose 15 ml DAILY PO 03/09/25 10:00 03/18/25 11:13 15 ML Lidocaine HCl 5 ml Q8HPRN PRN TOP 03/09/25 14:45 03/14/25 22:12 5 ML Al Hydrox/Mg Hydrox/Simethicone 5 ml QID MT 03/09/25 18:00 03/18/25 11:28 5 ML Vancomycin HCl 250 ml @ 250 mls/hr Q12H IV 03/11/25 12:00 UNV Nystatin 5 ml QID MT 03/11/25 18:00 03/18/25 11:13 5 ML Timolol Maleate 1 drop BID EACHEYE 03/12/25 22:00 03/18/25 11:11 1 DROP Patient Own Medication 1 BIDP PRN EACHEYE 03/12/25 15:00 Patient Own Medication 1 BIDP PRN TOP 03/12/25 15:00 03/17/25 23:12 1 Tbo-Filgrastim 300 mcg DAILY SC 03/14/25 11:00 03/18/25 11:10 300 MCG laboratory and microbiology Laboratory Tests 03/18/25 05:17 Test 03/18/25 05:17 Range/Units Serum Glucose 90 74-106 mg/dL Problem List PANCYTOPENIA SEPSIS R/O DIC HYPOTENSION MYELOSUPPRESSION SECONDARY TO SEPSIS MTX NOW WITH ABX USE SEPSIS PMH ; HFrEF DIALTED CM PUL FIBROSIS HX OF CIRRHOSIS CRYPTOGENIC RIGHT SIDED HF FROM PUL FIBROSIS AND HFrEF PORTAL HYPERTENSION RA HTN DIABETES HYPOTHYROIDISM SEVERE VOLUME DEPLETION WITH HYPERNATREMIA Assessment/Plan RECOMMEND CHANGE OF ABX BECAUSE OF MYELOSUPPRESSION DIC SCREEN CHANGE FLUID TO D5 1/2NS STILL WITH VOLUME DEPLETION MYELOSUPPRESSION SECONDARY TO MTX VS MYELOPROLIFERATIVE DISORDER BONE MARROW BX MYELOSUPPRESSION RETIC COUNT IS LOW HAPTOGLOBIN NORMAL/ NO HEMOLYSIS FIBRINOGEN HIGH FSP PENDING PRIMARY BONE MARROW SUPPRESSION S/P BM BIOPSY LEUKOCYTOSIS RESOLVED DC HOME F/U IN 1 WEEK MYELOSUPPRESSION SECONDARY TO MTX Dietary Evaluation Review Comments: Increased protein needs, offer Meliton BID for healing, glucerna 240 ml BID for oral supplement Expected Outcomes/Goals: controlled DM, healed wound, gradual wt loss Plan discussed with: Patient CHRIS QUINTEROS MD Mar 18, 2025 13:47
[2025-03-18 14:44] VITALS: BP 112/61; PULSE 67; RESP 18; TEMP 98.4; O2SAT 93
--- NOTE | 2025-03-18 15:08 | DVHDSRES ---
Discharge Summary Date of Admission Resident Creating Document: LIZZ MUNGUIA RESIDENT Mar 08, 2025 at 03:26 Date of Discharge: Mar 18, 2025 Labs/Diagnostic Data: Laboratory Results Test 03/18/25 12:38 03/18/25 05:17 03/16/25 12:07 03/16/25 04:30 POC Glucose 162 mg/dl (70-106) White Blood Count 6.6 10^3/uL (4.4-10.8) Red Blood Count 2.36 10^6/uL (4.0-5.20) Hemoglobin 8.7 g/dL (12.2-16.2) Hematocrit 24.0 % (36.0-46.0) Mean Corpuscular Volume 101.9 fL (80.0-100.0) Mean Corpuscular Hemoglobin 36.8 pg (28.0-32.0) Mean Corpuscular Hemoglobin Concent 36.1 g/dL (32.0-36.0) Red Cell Distribution Width 14.5 % (11.8-14.3) Platelet Count 35 10^3/uL (140-450) Mean Platelet Volume 9.2 fL (6.9-10.8) Neutrophils (%) (Auto) % (37.0-80.0) Lymphocytes (%) (Auto) % (10.0-50.0) Monocytes (%) (Auto) % (0.0-12.0) Basophils (%) (Auto) % (0.0-2.0) Neutrophils # (Auto) 10 ^3/uL (1.6-8.6) Lymphocytes # (Auto) 10 ^3/uL (0.4-5.4) Monocytes # (Auto) 10 ^3/uL (0-1.3) Differential Total Cells Counted 100.0 (100) Neutrophils % (Manual) 55 (37.0-80.0) Band Neutrophils % (Manual) 5 Lymphocytes % (Manual) 17 (10.0-50.0) Monocytes % (Manual) 20 (0-12) Eosinophils % (Manual) 3 (0-7) Basophils % (Manual) 0 (0.0-2.0) Metamyelocytes % (manual) 0 Myelocytes % (Manual) 0 Promyelocytes % (Manual) 0 Blast Cells % (Manual) 0 Reactive Lymphocytes 0 Platelet Estimate Decreased Macrocytosis Slight Sodium Level 142 mmol/L (136-145) Potassium Level 3.9 mmol/L (3.5-5.1) Chloride Level 106 mmol/L (98-107) Carbon Dioxide Level 28 mmol/L (20-31) Anion Gap 8 (5-15) Blood Urea Nitrogen 9 mg/dL (9-23) Creatinine 0.54 mg/dL (0.550-1.02) Glomerular Filtration Rate Calc 93 mL/min (>90) BUN/Creatinine Ratio 16.7 (10.0-20.0) Serum Glucose 90 mg/dL (74-106) Calcium Level 8.0 mg/dL (8.7-10.4) Vancomycin Level Trough 19.9 ug/mL (5-10) Eosinophils (%) (Auto) % (0.0-7.0) Total Bilirubin 2.4 mg/dL (0.2-1.0) Aspartate Amino Transferase (AST) 27 U/L (13-40) Alanine Aminotransferase (ALT) 26 U/L (7-40) Alkaline Phosphatase 123 U/L (46-116) Total Protein 4.8 g/dL (5.7-8.2) Albumin 2.3 g/dL (3.2-4.8) Test 03/14/25 16:18 03/14/25 04:41 03/13/25 04:49 03/12/25 15:40 Anisocytosis (manual) Slight Phosphorus Level 1.9 mg/dL (2.4-5.1) Magnesium Level 1.8 mg/dL (1.6-2.6) Eosinophils # (Auto) 0.3 10 ^3/uL (0-0.8) Basophils # (Auto) 0 10 ^3/uL (0-0.2) Nucleated Red Blood Cells 0.1 % Fibrinogen 280 mg/dL (177-375) Fibrin Degradation Products 10 ug/mL (<5) Test 03/12/25 08:17 03/11/25 07:00 03/10/25 16:36 03/09/25 03:54 Reticulocyte Count (auto) 0.58 % (0.5-1.5) Prothrombin Time 14.6 sec (9.3-11.8) Prothrombin Time INR 1.43 (0.9-1.15) Activated Partial Thromboplast Time 38.2 SEC (24.5-34.5) Ammonia 28 umol/L (11-32) Haptoglobin 107 mg/dL (42-346) Iron Level 128 ug/dL (50-170) Total Iron Binding Capacity 174 ug/dL (250-425) Percent Iron Saturation 73.6 % (15-50) Ferritin 588.4 ng/mL (10-291) Lactate Dehydrogenase 210 U/L (120-246) Lactic Acid Level 1.4 mmol/L (0.4-2.0) Random Vancomycin Level 4.4 ug/mL (5-10) Test 03/08/25 17:41 03/08/25 16:17 03/08/25 08:54 03/08/25 08:08 Urine Color Light-yellow (Yellow) Urine Clarity Clear (Clear) Urine pH 5.5 (5.0-9.0) Urine Specific Shonto 1.014 (1.001-1.035) Urine Protein Negative (Negative) Urine Ketones Negative (Negative) Urine Blood Negative /uL (Negative) Urine Nitrite Negative (Negative) Urine Bilirubin Negative (Negative) Urine Urobilinogen Normal mg/dL (Negative) Urine Leukocyte Esterase Negative /uL (Negative) Urine RBC 1 /hpf (0 - 4) Urine Microscopic WBC 1 /HPF (0-5) Urine Squamous Epithelial Cells None seen /hpf (<5) Urine Bacteria None seen /hpf (None Seen) Urine Hyaline Casts Few /lpf (0 - 2) Urine Osmolality 456 mOsm/kg Urine Glucose Normal mg/dL (Normal) Urine Creatinine 24.47 mg/dL (30.0-125.0) Urine Protein/Creatinine Ratio 0.80 Urine Sodium 66 mmol/L (40-220) Urine Potassium 18 mmol/L (12-62) Urine Total Protein 19.6 mg/dL (1-14) Blood Gas Specimen Type Arterial Blood Gas Sample Site Left radial Blood Gas Patient Temperature 37.0 Arterial Blood Date Drawn [id number] Arterial Blood pH 7.380 (7.350-7.450) Arterial Blood Partial Pressure CO2 29.3 mmHg (32.0-45.0) Arterial Blood Partial Pressure O2 65.8 mmHg (83.0-108.0) Arterial Blood HCO3 16.9 mmol/L (21.0-28.0) Arterial Blood Oxygen Saturation 91.6 % (94.0-98.0) Arterial Blood Base Excess -7.1 mmol/L (-2.0-3.0) Arterial Blood Oxyhemoglobin 91.1 % (94.0-98.0) Arterial Blood Carboxyhemoglobin 0.3 % (0.5-1.5) Arterial Blood Methemoglobin 0.3 % (0.0-1.5) Dinesh Test Yes Blood Gas Total Hemoglobin 10.70 g/dL (12.0-16.0) Blood Gas Modality Room air FiO2 % 21.0 Serum Osmolality 313 mOsm/kg (278-298) Hepatitis A Antibody Total Positive (Negative) Hepatitis B Surface Antigen Negative (Negative) Hepatitis B Surface Antibody Negative (Negative) Hepatitis B Core Total Antibody Negative (Negative) Hepatitis C Antibody Negative (Negative) Test 03/08/25 05:15 03/08/25 03:40 03/07/25 23:59 03/07/25 22:07 Influenza Type A Antigen Negative (Negative) Influenza Type B Antigen Negative (Negative) SARS-CoV-2 Antigen (Rapid) Negative (NEGATIVE) Hemoglobin A1c 6.4 % A1C (<5.7) Vitamin B12 Level 2148 pg/mL (211-911) Folic Acid > 48.00 ng/mL (>5.38) Thyroid Stimulating Hormone (TSH) 0.56 uIU/mL (0.55-4.78) Urine Yeast (Budding) Occasional /hpf (None Urine Opiates Screen Neg (NEGATIVE) Urine Fentanyl Screen Neg (NEGATIVE) Urine Barbiturates Screen Neg (NEGATIVE) Urine Phencyclidine Screen Neg (NEGATIVE) Urine Amphetamines Screen Neg (NEGATIVE) Urine Benzodiazepines Screen Neg (NEGATIVE) Urine Cocaine Screen Neg (NEGATIVE) Urine Cannabinoids Screen Neg (NEGATIVE) Plasma/Serum Blood Alcohol < 3.0 mg/dL (<10) Other Laboratory Tests 03/18/25 05:17 Brief Hx & Hospital Course: Claudette Guzmán is an 79-year-old woman who presents to the ED via EMS with chief complaint of altered level of consciousness, low grade fever, fatigue and generalized weakness, associated with suprapubic pain. Due to clinical status could not obtain review of systems, obtained past medical history from family who is at bedside. Per daughter she was recently hospitalized due to hyperammonemia in the setting of liver cirrhosis (etiology probably medication) in recently discharged eight days ago. Past Medical History: Hypertension, type 2 diabetes mellitus, HFrEF, liver cirrhosis (etiology probably secondary to medication) with esophageal varices and multiple admissions due to hyperammonemia, gastritis, lung fibrosis, rheumatoid arthritis. Surgical History: EGD with diagnosis of esophageal varices, nose and ear surgery, cataract surgery Family History: Sister had breast cancer Social History: Lives in [place] with daughter (she is the caregiver). Denies current tobacco, alcohol and other drug abuse Home Medications: Xifaxan 550 mg tab, Furosemide 40 mg tab, Potassium Cl ER 10 mEq tablet, Propranolol Hydrochloride 10 mg tab, Enulose 10 gm/15 mL john, Verquvo 2.5 mg tab, Tradjenta 5 mg tablets, Folic Acid 1 mg tab, Methotrexate 2.5 mg tablet, Naproxen DR 375 mg tab, Tramadol HCl 50 mg tab, Pregabalin 150 mg cap, Clonidine HCl 0.1 mg/24 hr patch, Pantoprazole Sodium 40 mg tab, Spironolactone 50 mg tab, Albuterol Sulfate HFA 108 mcg/act inhaler, Timolol Maleate 0.5% eye drops, Diclofenac Sodium 1% gel, Lidocaine 5% patch. PCP: Dr Siddiqi Licensed Insurance Agent: Dr. Weaver Cad Technician: [facility] COURSE: Metabolic encephalopathy secondary to septic shock probably due to UTI (no growth) associated with JOE, requiring IV fluids, empiric IV antibiotic (azithromycin, meropenem, metronidazole, vancomycin, azithromycin, micafungin and nystatin) and IV vasopressors for less than 48 hours. During admission, patient presented extensive mucositis (including oral, vaginal and anal mucosa) with mild bleeding likely secondary to methotrexate use which she discontinued on admission. Completed liver ultrasound which showed no ascites. CT head no acute intracranial abnormality. Renal ultrasound no evidence of hydronephrosis. Chest radiograph shows stable diffuse multifocal pulmonary airspace disease and chronic appearing bilateral interstitial pulmonary marking. During hospital stay, patient presented pancytopenia with severe neutropenic, requiring Filgastrim for multiple days and bone marrow biopsy (pending pathology report), in due to mucositis with severe thrombocytopenia, decided to transfuse platelets. CBC on and follow-up outpatient clinic on Monday morning. Patient has history of chronic systolic heart failure with no exacerbation, discontinue GDM T during hospital stay due to septic shock, recommend initiating as outpatient as tolerated. Patient discharged home with home health aide and home physical therapy. Patient is hemodynamically stable for discharge. The patient has received maximum benefits from inpatient treatment. Time was given to answer patient/ parents questions and concerns in Layman terms. patient verbalized understanding and agree with treatment and follow-up. Patient was recommended to return to the ED if she experiences any worsening symptoms such as, but not limited to current symptoms. Continue current home medication. follow-up with discharge Clinic within 1 weeks on Monday morning and follow up with PCP and Rheumatology (recommend discontinuing methotrexate) and cardiology (to re-initiate GDM T) within 2 weeks after discharge . Patient educated and advised to resume home medication. Physical examination Constitutional: No: Fever, Chills, Sweats, Weakness, Malaise, Other Eyes: No: Pain, Vision change, Conjunctivae inflammation, Eyelid inflammation, Other, Redness ENT: No: Ear pain, Ear discharge, Nose pain, Nose discharge, Nose congestion, Mouth pain, Mouth swelling, Throat pain, Throat swelling, Other Respiratory: Shortness of breath; No: Cough, Dry, SOB with excertion, Wheezing, Hemoptysis, Pleuritic Pain, Sputum, Wheezing, Other Cardiovascular: No: Chest Pain, Palpitations, Orthopnea, Paroxysmal Noc. Dyspnea, Edema, Lt Headedness, Other Gastrointestinal: No: Nausea, Vomiting, Abdominal Pain, Diarrhea, Constipation, Melena, Hematochezia, Other Genitourinary: No Dysuria, No Frequency, No Incontinence, No Hematuria, No Retention, No Other Musculoskeletal: No: other, neck pain, shoulder pain, arm pain, back pain, positive for gait instability Skin: No: Rash, Lesions, Jaundice, Bruising, Other Neurological: No: Weakness, Numbness, Incoordination, Change in speech, Confusion, Seizures, Other Case discussed with Mohinder , daughter, nurse. Operations or Procedures CHEST RADIOGRAPH Indication: Pneumonia Technique: Single frontal view of the chest was obtained COMPARISON: XY CHEST PORTABLE on DOS: 02/28/25, XY CHEST PORTABLE on DOS: 01/14/25, XY CHEST XRAY 1 VIEW on DOS: 09/27/24 FINDINGS: Lines and Tubes: None Lungs: Diffuse lung disease with patchy alveolar and interstitial opacities in both lungs, predominantly in the left mid lung and left lower lobe, suggestive of atypical or viral pneumonia. Pleura: No effusion. No pneumothorax. Cardiomediastinal contours: Enlarged cardiac silhouette. Bones: Unremarkable IMPRESSION: 1. Diffuse lung disease with patchy alveolar and interstitial opacities in both lungs, predominantly in the left mid lung and left lower lobe, suggestive of atypical or viral pneumonia. ATED BY: AIDEN HUBBARD MD DICTATED DATE/TIME: 03/07/25 2735 INDICATION: Liver cirrhosis, asictis TECHNIQUE: Multiple real-time sonographic images were obtained of the right upper quadrant. COMPARISON: US LIVER on DOS: 09/28/24 FINDINGS: The liver demonstrates coarsened diffusely increased echotexture without focal mass lesions. The liver measures 10.9 cm. Normal hepatopetal portal flow identified. No evidence of pleural effusion or abdominal ascites. There is no intrahepatic or extrahepatic ductal dilatation. The common duct measures 0.4 cm. Gallstones within the gallbladder. The gallbladder wall measures 0.2 cm and is within normal limits. Negative sonographic davey's sign. The right kidney measures 7.5 cm. The right kidney is normal in contour, size, and shape. The echogenicity is normal. There is no hydronephrosis. The pancreas is not well visualized due to overlying bowel gas. IMPRESSION: 1. Coarsened hepatic echotexture. 2. No evidence of ascites. 3. Cholelithiasis without sonographic evidence of acute cholecystitis. ATED BY: DANIEL VELA MD DICTATED DATE/TIME: 03/08/25 0025 EXAM: CT HEAD WITHOUT CONTRAST INDICATION: aloc TECHNIQUE: CT of the head without intravenous contrast. Radiation Dose : 1. Head: CT Dose: CTDI volume is 53.95 mGy. Dose-length product is 1.71 mGy*cm The dose indicators for CT are the volume Computed Tomography (CT) Dose Index (CTDIvol) and the Dose Length Product (DLP), and are measured in units of mGy and mGy-cm, respectively. These indicators are not patient dose, but values generated from the CT scanner acquisition factors. The report includes radiation exposure data for exposures received during this examination. COMPARISON: CT HEAD WITHOUT CONTRAST on DOS: 02/28/25, CT HEAD WITHOUT CONTRAST on DOS: 01/14/25, US CAROTID DUPLX W COLOR DOP on DOS: 07/24/24 FINDINGS: There is no evidence of acute intracranial hemorrhage, extra-axial collection, mass effect, midline shift, herniation or hydrocephalus. 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 Focal calcification in the right precentral gyrus ( series 2, image 48 ) and left temporal lobe (series 2, image 22). Intracranial atherosclerosis. The ventricles, sulci and cisterns are age appropriate. The oneal-white differentiation is intact. The visualized paranasal sinuses are clear. Prior right canal wall down mastoidectomy. The surrounding soft tissues and osseous structures are unremarkable. IMPRESSION: 1. No acute intracranial abnormality. Radiation optimization: All CT scans at this facility use at least one of these dose optimization techniques: automated exposure control mA and/or kV adjustment per patient size (includes targeted exams where dose is matched to clinical indication) or iterative reconstruction. ATED BY: AIDEN HUBBARD MD DICTATED DATE/TIME: 03/07/25 2326 US KIDNEY HISTORY: rule out postrenal obstruction COMPARISON: US ABDOMEN LIMITED on DOS: 03/07/25, US LIVER on DOS: 09/28/24 TECHNIQUE: Transverse and longitudinal grayscale and color doppler images were obtained of the kidneys and bladder. FINDINGS: Right kidney: Size: 9.9 cm Cortical thickness: Normal Echogenicity: Normal Stones: None Masses: None Hydronephrosis: None Ureters: Not well visualized. Other: None Left kidney: Size: 10.8 cm Cortical thickness: Normal Echogenicity: Normal Stones: None Masses: None Hydronephrosis: None Ureters: Not well visualized. Other: None Bladder: Hernandez Other: None. IMPRESSION: Unremarkable renal ultrasound. ATED BY: RAMIREZ LONGORIA MD DICTATED DATE/TIME: 03/08/25 0823 CHEST RADIOGRAPH Indication: SOB Technique: Single frontal view of the chest was obtained COMPARISON: XY CHEST XRAY 1 VIEW on DOS: 03/07/25, XY CHEST PORTABLE on DOS: 02/28/25, XY CHEST PORTABLE on DOS: 01/14/25, XY CHEST XRAY 1 VIEW on DOS: 09/27/24 FINDINGS: Lines and Tubes: None Lungs: Stable chronic appearing bilateral interstitial pulmonary markings and Diffuse multifocal bilateral pulmonary airspace disease. Pleura: No effusion. No pneumothorax. Cardiomediastinal contours: Unremarkable Bones: Unremarkable IMPRESSION: 1. Stable diffuse multifocal pulmonary airspace disease. 2. Chronic appearing bilateral interstitial pulmonary markings. ATED BY: DANIEL VELA MD DICTATED DATE/TIME: 03/11/[address] PELVIS WO CONTRAST HISTORY: BONE MARROW BIOPSY COMPARISON: None PROCEDURE: Informed consent and time-out was performed before the procedure. Conscious sedation was performed by the interventional radiology nurse. The pelvic bone was marked, sterilized, draped, and locally anesthetized using approximately 8 ml of 1% lidocaine. Axial CT images were used for localization. A 11 gauge Viroblock Bone Biopsy kit was used to take a core biopsy samples/20 mL aspirates. The biopsy needle was then removed. No immediate complications noted. FINDINGS: Axial CT images demonstrates biopsy needle within the left posterior pelvis. IMPRESSION: CT-guided bone marrow aspiration and biopsy of the left posterior pelvis. ATED BY: RAMIREZ LONGORIA MD DICTATED DATE/TIME: 03/13/[address] PELVIS WO CONTRAST HISTORY: BONE MARROW BIOPSY COMPARISON: None PROCEDURE: Informed consent and time-out was performed before the procedure. Conscious sedation was performed by the interventional radiology nurse. The pelvic bone was marked, sterilized, draped, and locally anesthetized using approximately 8 ml of 1% lidocaine. Axial CT images were used for localization. A 11 gauge [employer] Bone Biopsy kit was used to take a core biopsy samples/20 mL aspirates. The biopsy needle was then removed. No immediate complications noted. FINDINGS: Axial CT images demonstrates biopsy needle within the left posterior pelvis. IMPRESSION: CT-guided bone marrow aspiration and biopsy of the left posterior pelvis. ATED BY: RAMIREZ LONGORIA MD DICTATED DATE/TIME: 03/13/25 1532 Condition at Discharge: Stable Final Diagnosis/Problems List Metabolic encephalopathy secondary to sepsis due to UTI Ruled out hepatic encephalopathy Septic shock secondary to UTI History of multiple UTIs Mucositis secondary to methotrexate Severe thrombocytopenia Pancytopenia - Acute Severe Neutropenia Macrocytic anemia Liver cirrhosis questionably secondary to medication (methotrexate) JOE hemodynamically mediated (VMN) Hyponatremia Pulmonary fibrosis - no home oxygen requirement Chronic systolic congestive heart failure (HFrEF) - no exacerbation Rheumatoid arthritis Essential hypertension Type 2 diabetes mellitus Glaucoma Gait instability with generalized weakness Discharge Disposition: Home with Health Services Discharge Instruct/Medications Diet: Cardiac 2g Na,low cholest Activity: No Restrictions, As Tolerated Follow Up/Referral: PCP Outpatient clinic within 2 weeks after discharge Outpatient rheumatology follow-up in 2-4 weeks after discharge Scheduled Alum & Mag Hydrox-Simethicone (Magic Mouthwash), 5 ML MT QID Folic Acid (Folic Acid), 1 TAB PO DAILY, (Reported) Furosemide (Furosemide), 1 TAB PO DAILY, (Reported) Lactulose (Lactulose), 15 ML PO DAILY Nystatin (Mouth-Throat) (Mycostatin (Mouth-Throat)), 5 ML MT QID Pantoprazole Sodium Sesquihydr (Pantoprazole Sodium), 40 MG PO DAILY Propranolol HCl (Propranolol Hydrochloride), 1 TAB PO BID, (Reported) Rifaximin (Xifaxan), 1 TAB PO BID, (Reported) Timolol Maleate (Ophth) (Timolol Maleate), 1 DROP EACHEYE BID Discharge Statement: "Patient was advised to return to the ER or call 911 if any headaches, dizziness, shortness of breath, chest pain, abdominal pain, bleeding, fevers, or worsening of medical condition. Patient was counseled about treatment plan, medications, possible side effects, patientverbalized understanding. All questions were answered to the best of my ability. This discharge took greater then 30 minutes in planning, reviewing documentation, counseling the patient, and discussing with other team members." ASSESSMENT ASSESSMENT Assessment Metabolic encephalopathy secondary to sepsis probably due to UTI LIZZ MUNGUIA RESIDENT Mar 18, 2025 15:08 BERNARDO GOODE RESIDENT Mar 18, 2025 21:40
== END 2025-03-18 15:00 | disposition home health service (06) | DRG 720 ==
LOC: ER 21:44 → OVERFLOW 03-08 03:26 → WEST WING 03-11 20:00 → TELE-WESTW 03-12 06:30 → WEST WING 03-12 08:54 → EAST 03-14 18:40
PROVIDERS: ADMIT Student in an Organized Health Care Education/Training Program; ATTEND Internal Medicine Cardiovascular Disease
PROC: 30233R1 Transfusion of Nonautologous Platelets into Peripheral Vein, Percutaneous Approach (ICD-10-PCS; principal; 2025-03-13)
PROC: 079T3ZX Drainage of Bone Marrow, Percutaneous Approach, Diagnostic (ICD-10-PCS; 2025-03-13)
DX: A41.9 Sepsis, unspecified organism (principal); R65.21 Severe sepsis with septic shock; N17.0 Acute kidney failure with tubular necrosis; E43 Unspecified severe protein-calorie malnutrition; G93.41 Metabolic encephalopathy; E72.20 Disorder of urea cycle metabolism, unspecified; D61.818 Other pancytopenia; E87.0 Hyperosmolality and hypernatremia; D53.9 Nutritional anemia, unspecified; E11.9 Type 2 diabetes mellitus without complications; Z20.822 Contact with and (suspected) exposure to COVID-19; E87.1 Hypo-osmolality and hyponatremia; I50.22 Chronic systolic (congestive) heart failure; J84.10 Pulmonary fibrosis, unspecified; K74.60 Unspecified cirrhosis of liver; E86.1 Hypovolemia; E87.5 Hyperkalemia; M06.9 Rheumatoid arthritis, unspecified; H40.9 Unspecified glaucoma; R74.01 Elevation of levels of liver transaminase levels; K80.20 Calculus of gallbladder without cholecystitis without obstruction; E86.0 Dehydration; I11.0 Hypertensive heart disease with heart failure; Z68.30 Body mass index [BMI] 30.0-30.9, adult; I85.10 Secondary esophageal varices without bleeding; K12.30 Oral mucositis (ulcerative), unspecified; K76.6 Portal hypertension; E03.9 Hypothyroidism, unspecified; E86.9 Volume depletion, unspecified; Z88.0 Allergy status to penicillin; Z80.3 Family history of malignant neoplasm of breast; N39.0 Urinary tract infection, site not specified; N76.81 Mucositis (ulcerative) of vagina and vulva; T45.1X5A Adverse effect of antineoplastic and immunosuppressive drugs, initial encounter; Y92.89 Other specified places as the place of occurrence of the external cause
CPT/HCPCS: 10005; 36415; 36600; 70450; 71045; 72192; 76705; 76775; 77012; 80048; 80053; 80202; 80307; 80320; 81001; 82140; 82565; 82570; 82607; 82728; 82746; 82805; 82962; 83010; 83036; 83540; 83550; 83605; 83615; 83735; 83930; 83935; 84100; 84132; 84133; 84156; 84300; 84443; 85007; 85025; 85027; 85045; 85362; 85384; 85610; 85730; 86704; 86706; 86708; 86803; 86850; 86880; 86900; 86901; 87040; 87070; 87077; 87081; 87086; 87205; 87340; 87426; 87804; 93005; 96365; 97110; 97116; 97163; G0378; J1447; J1815; J1885; J2003; J2185; J2248; J2250; J2405; J2470; J3430; J3480; J7060; P9047

== ENCOUNTER 2025-03-20 12:06 | Outpatient (CLI) | payer MEDICAID ==
[~2025-03-20 12:06] MED LIST: FOLI-119 PO; FURO40TA4 PO; LACT10SO3 PO; MAGIC MT; NYS5LQ MT; PANT40T PO; PROP1TAB51 PO; RIFA550T PO; TIMO0.5S32 EACHEYE
[2025-03-20 12:40] LABS: Hematocrit 25.1 % (36.0-46.0); Hemoglobin 9.0 g/dL (12.2-16.2); Mean Corpuscular Hemoglobin 36.5 pg (28.0-32.0); Mean Corpuscular Volume 102.1 fL (80.0-100.0)
[2025-03-20 12:57] LABS: Total Cells Counted 100.0 (100)
[2025-03-20 12:58] LABS: Anisocytosis Slight; Macrocytosis Slight
== END 2025-03-20 17:00 | disposition home or self-care (01) ==
LOC: LAB 12:06
PROVIDERS: ATTEND Student in an Organized Health Care Education/Training Program
DX: D64.9 Anemia, unspecified (principal)
CPT/HCPCS: 36415; 85007; 85027